=== PATIENT | female | born 1970 | race Caucasian/White ===

== ENCOUNTER 2016-10-31 11:32 | Emergency (ER) | payer MEDICAID ==
[2016-10-31] MEDS ORDERED: LORazepam 0.5 MG TABLET PO STA (13:33)
[2016-10-31] MEDS ORDERED: LORazepam 0.5 MG TABLET ONE (13:35)
== END 2016-10-31 16:19 | disposition home or self-care (01) ==
DX: F41.9 Anxiety disorder, unspecified (principal); F31.9 Bipolar disorder, unspecified; F17.200 Nicotine dependence, unspecified, uncomplicated
CPT/HCPCS: 80306; 81001; 81025; 87086; 99283; 99284; A9270

== ENCOUNTER 2017-05-07 15:08 | Emergency (ER) | payer MEDICAID ==
[2017-05-07 15:28] VITALS: BP 131/85
--- NOTE | 2017-05-07 16:24 | ED Physician Documentation ---
PD HPI MHE - Stated complaint Stated Complaint: MHE - Chief complaint Chief Complaint: MHE - History obtained from History obtained from: Patient, Friend - History of Present Illness Primary symptom: Other (46-year-old woman with history of bipolar disorder has been feeling increasingly anxious and not sleeping over the last few days compounded by the fact that she ran out of her lorazepam about 2 days ago and there is some sort of mixup between her prescriber and the pharmacy causing her to be unable to obtain refill. There is no associated suicidal or homicidal ideation. 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 - Present Medications Home Medications: Ambulatory Orders Medication Instructions Recorded Confirmed Desvenlafaxine Succinate [Pristiq] 50 mg DAILY 10/31/16 10/31/16 Doxycycline Hyclate 100 mg BID 10/31/16 10/31/16 Lorazepam 1 tab BID 10/31/16 10/31/16 busPIRone [Buspar] 15 mg BID 10/31/16 10/31/16 Lorazepam [Ativan] 1 mg PO TID PRN #15 tablet 05/07/17 - Allergies Allergies/Adverse Reactions: Allergies Allergy/AdvReac Type Severity Reaction Status Date / Time No Known Drug Allergies Allergy Verified 10/31/16 11:41 - Social History Does the pt smoke?: Yes Smoking Status: Current every day smoker Does the pt drink ETOH?: No PD ED PE NORMAL - Vitals Vital signs reviewed: Yes - General General: Alert and oriented X 3, No acute distress, Other (Anxious) - HEENT HEENT: PERRL, EOMI - Neuro Neuro: Alert and oriented X 3, advertising copywriter 2-12 intact, No motor deficit, No sensory deficit, Normal speech Results - Vitals Vitals: Vital Signs - 24 hr 05/07/17 15:23 Temperature 36.5 C Heart Rate 80 Blood Pressure 131/85 H O2 Saturation 97 Oxygen O2 Source Room air Departure - Departure Disposition: 01 Home, Self Care Clinical Impression: Anxiety Condition: Good Record reviewed to determine appropriate education?: Yes Instructions: ED Panic Attack Prescriptions: Lorazepam [Ativan] 1 mg PO TID PRN #15 tablet PRN Reason: Anxiety Comments: Follow-up with your prescriber at [facility] as soon as possible for further refills and medication adjustment. Your blood pressure was elevated today on check into the emergency department. This does not mean that you have hypertension, it is a common phenomenon to come to the emergency department and have elevated blood pressure. I recommend that she see your primary care physician within the week to have it rechecked when you are feeling better.
[2017-05-07] MEDS ORDERED: LORazepam 0.5 MG TABLET PO STA (16:30)
[2017-05-07] MEDS ORDERED: LORazepam 0.5 MG TABLET ONE (16:38)
[2017-05-07] MEDS ORDERED: ONDANSETRON ODT 4 MG TABLET TL STA (16:41)
[2017-05-07] MEDS ORDERED: ONDANSETRON ODT 4 MG TABLET ONE (16:47)
== END 2017-05-07 17:32 | disposition home or self-care (01) ==
LOC: ED 15:08
DX: F41.9 Anxiety disorder, unspecified (principal); T42.4X6A Underdosing of benzodiazepines, initial encounter; Z91.138 Patient's unintentional underdosing of medication regimen for other reason; F31.9 Bipolar disorder, unspecified; R03.0 Elevated blood-pressure reading, without diagnosis of hypertension; F17.200 Nicotine dependence, unspecified, uncomplicated
CPT/HCPCS: 93005; 99283; A9270; Q0162

== ENCOUNTER 2017-05-21 15:35 | Emergency (ER) | payer MEDICAID ==
--- NOTE | 2017-05-21 15:50 | ED Physician Documentation ---
History of Present Illness - Stated complaint Stated Complaint: anxiety reaction - Chief complaint Chief Complaint: General - History obtained from History obtained from: Patient, Friend - History of Present Illness Timing: Other (46-year-old woman with history of bipolar disorder has been noncompliant with her Geodon and took it again today and is making her feel even worse. She has not slept in about a week, she is pacing and crying at night and feeling chest pains and shortness of breath. There is no associated pedal edema or possibility of . She has no physical health issues.) Review of Systems Ten Systems: 10 systems reviewed and negative Constitutional: reports: Fatigue. denies: Fever, Chills Cardiac: reports: Chest pain / pressure. denies: Palpitations, Pedal edema, Calf pain Respiratory: reports: Dyspnea. 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 - Present Medications Home Medications: Ambulatory Orders Medication Instructions Recorded Confirmed Desvenlafaxine Succinate [Pristiq] 50 mg DAILY 10/31/16 10/31/16 Doxycycline Hyclate 100 mg BID 10/31/16 10/31/16 Lorazepam 1 tab BID 10/31/16 10/31/16 busPIRone [Buspar] 15 mg BID 10/31/16 10/31/16 Lorazepam [Ativan] 1 mg PO TID PRN #15 tablet 05/07/17 QUEtiapine [SEROquel] 100 mg PO BID #30 tablet 05/21/17 - Allergies Allergies/Adverse Reactions: Allergies Allergy/AdvReac Type Severity Reaction Status Date / Time No Known Drug Allergies Allergy Verified 10/31/16 11:41 - Social History Does the pt smoke?: Yes Smoking Status: Current every day smoker Does the pt drink ETOH?: No - Family History Family history: reports: Non contributory PD ED PE NORMAL - Vitals Vital signs reviewed: Yes - General General: Alert and oriented X 3, Other (Tearful with pressured speech, anxious) - HEENT HEENT: PERRL, EOMI - Neck Neck: Supple, no meningeal sign, No bony TTP - Cardiac Cardiac: Other (Tachycardic but regular, no murmur) - Respiratory Respiratory: No respiratory distress, Clear bilaterally - Abdomen Abdomen: Normal bowel sounds, Soft, Non tender - Back Back: No CVA TTP, No spinal TTP - Derm Derm: Normal color, Warm and dry - Extremities Extremities: No edema, No calf tenderness / cord - Neuro Neuro: Alert and oriented X 3, Normal speech - Psych Psych: Other (Pressured speech and manic, redirectable though, denies suicidal or homicidal ideation, denies visual or auditory hallucinations.) Results - Vitals Vitals: Vital Signs - 24 hr 05/21/17 15:40 Temperature 36.8 C Heart Rate 133 H Respiratory 17 Rate Blood Pressure 137/89 H O2 Saturation 98 Oxygen O2 Source Room air - EKG (time done) 1548 Rate: Rate (enter#) (105) Rhythm: Sinus tachycardia [place]: Normal Intervals: Normal [place] QRS: Normal Ischemia: Normal ST segments Computer interpretation: Agree with computer - Labs Labs: Laboratory Tests 05/21/17 05/21/17 05/21/17 15:52 15:52 15:52 WBC 9.0 RBC 4.71 Hgb 14.8 Hct 43.3 MCV 92.0 MCH 31.4 H MCHC 34.1 RDW 13.6 Plt Count 216 MPV 8.7 Neut # 5.8 Lymph # 2.3 [place] # 0.7 Eos # 0.1 Baso # 0.1 Absolute Nucleated RBC 0.00 Nucleated RBC % 0.0 D-Dimer 294.2 H Sodium 135 Potassium 3.4 L Chloride 104 Carbon Dioxide 19 L Anion Gap 12.0 BUN 10 Creatinine 0.8 Estimated GFR (MDRD) 78 L Glucose 121 H Calcium 9.1 Total Bilirubin 0.6 AST 18 ALT 16 Alkaline Phosphatase 58 Troponin I Total Protein 7.2 Albumin 4.5 Globulin 2.7 Albumin/Globulin Ratio 1.7 Lipase 18 L TSH Urine Color Urine Clarity Urine pH Ur Specific [place] Urine Protein Urine Glucose (UA) Urine Ketones Urine Occult Blood Urine Nitrite Urine Bilirubin Urine Urobilinogen Ur Leukocyte Esterase Urine RBC Urine WBC Ur Squamous Epith Cells Urine Bacteria Ur Microscopic Review Urine Culture Comments Urine HCG, Qual Urine Opiates Screen Ur Oxycodone Screen Urine Methadone Screen Ur Propoxyphene Screen Ur Barbiturates Screen Ur Tricyclics Screen Ur Phencyclidine Scrn Ur Amphetamine Screen U Methamphetamines Scrn U Benzodiazepines Scrn Urine Cocaine Screen U Cannabinoids Screen Ethyl Alcohol < 5.0 05/21/17 05/21/17 05/21/17 15:52 15:52 16:34 WBC RBC Hgb Hct MCV MCH MCHC RDW Plt Count MPV Neut # Lymph # [place] # Eos # Baso # Absolute Nucleated RBC Nucleated RBC % D-Dimer Sodium Potassium Chloride Carbon Dioxide Anion Gap BUN Creatinine Estimated GFR (MDRD) Glucose Calcium Total Bilirubin AST ALT Alkaline Phosphatase Troponin I < 0.04 Total Protein Albumin Globulin Albumin/Globulin Ratio Lipase TSH 2.88 Urine Color Urine Clarity Urine pH Ur Specific [place] Urine Protein Urine Glucose (UA) Urine Ketones Urine Occult Blood Urine Nitrite Urine Bilirubin Urine Urobilinogen Ur Leukocyte Esterase Urine RBC Urine WBC Ur Squamous Epith Cells Urine Bacteria Ur Microscopic Review Urine Culture Comments Urine HCG, Qual Urine Opiates Screen NEGATIVE Ur Oxycodone Screen NEGATIVE Urine Methadone Screen NEGATIVE Ur Propoxyphene Screen NEGATIVE Ur Barbiturates Screen NEGATIVE Ur Tricyclics Screen NEGATIVE Ur Phencyclidine Scrn NEGATIVE Ur Amphetamine Screen NEGATIVE U Methamphetamines Scrn NEGATIVE U Benzodiazepines Scrn POSITIVE H Urine Cocaine Screen NEGATIVE U Cannabinoids Screen POSITIVE H Ethyl Alcohol 05/21/17 16:34 WBC RBC Hgb Hct MCV MCH MCHC RDW Plt Count MPV Neut # Lymph # [place] # Eos # Baso # Absolute Nucleated RBC Nucleated RBC % D-Dimer Sodium Potassium Chloride Carbon Dioxide Anion Gap BUN Creatinine Estimated GFR (MDRD) Glucose Calcium Total Bilirubin AST ALT Alkaline Phosphatase Troponin I Total Protein Albumin Globulin Albumin/Globulin Ratio Lipase TSH Urine Color YELLOW Urine Clarity CLEAR Urine pH 6.0 Ur Specific [place] 1.010 Urine Protein NEGATIVE Urine Glucose (UA) NEGATIVE Urine Ketones NEGATIVE Urine Occult Blood SMALL H Urine Nitrite NEGATIVE Urine Bilirubin NEGATIVE Urine Urobilinogen 0.2 (NORMAL) Ur Leukocyte Esterase NEGATIVE Urine RBC 6-10 H Urine WBC 0-3 Ur Squamous Epith Cells MOD Squamous H Urine Bacteria Few Ur Microscopic Review INDICATED Urine Culture Comments NOT INDICATED Urine HCG, Qual NEGATIVE Urine Opiates Screen Ur Oxycodone Screen Urine Methadone Screen Ur Propoxyphene Screen Ur Barbiturates Screen Ur Tricyclics Screen Ur Phencyclidine Scrn Ur Amphetamine Screen U Methamphetamines Scrn U Benzodiazepines Scrn Urine Cocaine Screen U Cannabinoids Screen Ethyl Alcohol PD MEDICAL DECISION MAKING - ED course ED course: 46-year-old woman with anxiety and andre. She had chest pain so EKG/troponin/d- dimer are done. D-dimer flags as positive but most authorities would consider this a negative value. Dr Phan from [facility] evaluated her and felt she is safe for discharge, concern though that she may be having paradoxical agitation from the geodon. Recommends discontinuing this and replacing it with: 100mg seroquel, 1/ 2 tab AM and 100mg PO qhs. Departure - Departure Disposition: Home, Self Care Clinical Impression: Bipolar 1 disorder Condition: Good Record reviewed to determine appropriate education?: Yes Instructions: ED Manic Depression Prescriptions: QUEtiapine [SEROquel] 100 mg PO BID #30 tablet Comments: The psychiatrist here recommends discontinuing her Geodon, and replacing it with the Seroquel; we gave you a nighttime dose here. You are to take half a tablet in the morning and 1 tablet in the evening. Follow-up with your personal psychiatrist as soon as possible. Return if worse. Your blood pressure was elevated today on check into the emergency department. This does not mean that you have hypertension, it is a common phenomenon to come to the emergency department and have elevated blood pressure. I recommend that you see your primary care physician within the week to have it rechecked when you are feeling better.
[2017-05-21 16:02] LABS: BASOPHILS # (AUTO) 0.1 10^3/uL (0.0-0.1); BASOPHILS % (AUTO) 0.7 %; EOSINOPHILS # (AUTO) 0.1 10^3/uL (0.0-0.7); EOSINOPHILS % (AUTO) 0.9 %; HCT - HEMATOCRIT 43.3 % (37.0-47.0); HGB - HEMOGLOBIN 14.8 g/dL (12.0-16.0); LYMPHOCYTES # (AUTO) 2.3 10^3/uL (1.5-3.5); LYMPHOCYTES % (AUTO) 25.6 %; MEAN CORPUSCULAR HEMOGLOBIN 31.4 pg (27.0-31.0); MEAN CORPUSCULAR HGB CONC 34.1 g/dL (32.0-36.0); MEAN PLATELET VOLUME 8.7 fL (7.9-10.8); MONOCYTES # (AUTO) 0.7 10^3/uL (0.0-1.0); MONOCYTES % (AUTO) 7.8 %; NEUTROPHILS # (AUTO) 5.8 10^3/uL (1.5-6.6); RED BLOOD COUNT 4.71 10^6/uL (4.20-5.40); RED CELL DISTRIBUTION WIDTH 13.6 % (12.0-15.0)
[2017-05-21 16:15] LABS: ALBUMIN/GLOBULIN RATIO 1.7 (1.0-2.2); BILIRUBIN,TOTAL 0.6 mg/dL (0.2-1.0); BUN - BLOOD UREA NITROGEN 10 mg/dL (6-20); CALCIUM 9.1 mg/dL (8.5-10.3); CARBON DIOXIDE - CO2 19 mmol/L (21-32); CHLORIDE 104 mmol/L (101-111); CREATININE 0.8 mg/dL (0.4-1.0); GFR - MDRD 78 (>89); GLUCOSE 121 mg/dL (70-100); LIPASE 18 U/L (22-51); POTASSIUM 3.4 mmol/L (3.5-5.0); SODIUM 135 mmol/L (135-145); TOTAL PROTEIN 7.2 g/dL (6.7-8.2)
[2017-05-21 16:38] LABS: BILIRUBIN,URINE NEGATIVE (NEGATIVE)
[2017-05-21 16:42] LABS: HCG UR QUAL NEGATIVE; UA w/ MICROSCOPIC CHARGE YES
[2017-05-21 16:50] LABS: UR CULTURE IF IND NOT INDICATED; WBC,URINE 0-3 /HPF (0-5)
[2017-05-21] MEDS ORDERED: QUEtiapine 25 MG TABLET PO STA (18:12)
[2017-05-21] MEDS ORDERED: QUEtiapine 100 MG TABLET PO STA (18:16)
[2017-05-21 18:17] VITALS: BP 110/75
== END 2017-05-21 18:29 | disposition home or self-care (01) ==
LOC: ED 15:35
DX: F31.9 Bipolar disorder, unspecified (principal); F41.9 Anxiety disorder, unspecified; T43.596A Underdosing of other antipsychotics and neuroleptics, initial encounter; R07.9 Chest pain, unspecified; R03.0 Elevated blood-pressure reading, without diagnosis of hypertension; F17.200 Nicotine dependence, unspecified, uncomplicated
CPT/HCPCS: 36415; 80053; 80306; 80320; 81001; 81025; 83690; 84443; 84484; 85025; 85379; 93005; 99283; 99284; A9270; 81003; 87086

== ENCOUNTER 2017-06-07 21:25 | Outpatient (CLI) | payer MEDICAID | END 2017-06-07 21:26 | disposition critical access hospital (66) | LOC: EMS 21:25 | PROVIDERS: ATTEND Surgery | DX: R07.9 Chest pain, unspecified (principal) | CPT/HCPCS: A0425; A0427 ==

== ENCOUNTER 2017-06-07 21:44 | Emergency (ER) | payer MEDICAID ==
--- NOTE | 2017-06-07 22:04 | ED Physician Documentation ---
PD HPI CHEST PAIN - Stated complaint Stated Complaint: CP - Chief complaint Chief Complaint: Cardiac - History obtained from History obtained from: Patient - History of Present Illness Timing - onset: Enter time (19:00), Today Timing - onset during: Rest (driving) Timing - details: Abrupt onset Pain level now: 4 Quality: Pain Location: Substernal Radiation: Other (no radiation) Improved by: Nothing Worsened by: Other (no exacerbating factors) Associated symptoms: Nausea. No: Shortness of air, Vomiting, General Weakness Similar symptoms before: Has not had sx before Recently seen: Emergency Dept (T+R yesterday for same, unremarkable testing at that time) Review of Systems Constitutional: denies: Fever Cardiac: reports: Chest pain / pressure. denies: Palpitations, Pedal edema Respiratory: reports: Reviewed and negative GI: reports: Nausea. 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 - Present Medications Home Medications: Ambulatory Orders Medication Instructions Recorded Confirmed Doxycycline Hyclate 100 mg BID 10/31/16 06/07/17 hydrOXYzine PAMOATE [Vistaril] 1 tab PO DAILY 06/07/17 06/07/17 - Allergies Allergies/Adverse Reactions: Allergies Allergy/AdvReac Type Severity Reaction Status Date / Time No Known Drug Allergies Allergy Verified 06/07/17 21:49 - Social History Does the pt smoke?: Yes Smoking Status: Current every day smoker Does the pt drink ETOH?: No Does the pt have substance abuse?: No - Immunizations Immunizations are current?: No - POLST Patient has POLST: No PD ED PE NORMAL - Vitals Vital signs reviewed: Yes - General General: Alert and oriented X 3, No acute distress, Well developed/nourished - Neck Neck: Supple, no meningeal sign - Cardiac Cardiac: RRR, No murmur - Respiratory Respiratory: No respiratory distress, Clear bilaterally - Abdomen Abdomen: Soft, Non tender, Non distended - Derm Derm: Normal color, Warm and dry - Extremities Extremities: No edema Results - Vitals Vitals: Oxygen O2 Source Room air - EKG (time done) No standard instances Rate: Rate (enter#) (65) Rhythm: NSR [place]: Normal Intervals: Normal [place] QRS: Normal Ischemia: Normal ST segments - Labs Labs: Laboratory Tests 06/07/17 22:05 Troponin I < 0.04 - Rads (name of study) chest xray Radiology: Prelim report reviewed, See rad report PD MEDICAL DECISION MAKING - ED course Complexity details: reviewed old records, reviewed results, re-evaluated patient , considered differential, d/w patient Departure - Departure Disposition: 01 Home, Self Care Clinical Impression: Anxiety, Bipolar 1 disorder Chest pain Qualifiers: Chest pain type: unspecified Qualified Code(s): R07.9 - Chest pain, unspecified Condition: Good Instructions: ED Chest Pain Atypical Unkn Cause Comments: Follow up with your primary care provider, next available appointment Discharge Date/Time: 06/08/17 00:00
--- NOTE | 2017-06-07 22:41 | XRAY Preliminary Report ---
Exam: XR CHEST 2 VIEW PA/LAT IMPRESSION: 1. No acute abnormality seen in the chest. [facility] SITE ID: [id number]
--- NOTE | 2017-06-07 22:44 | XRAY Report ---
EXAM: CHEST RADIOGRAPHY EXAM DATE: 06/07/2017 10:29 PM. CLINICAL HISTORY: Chest pain. COMPARISON: 05/19/2011. TECHNIQUE: 2 views. FINDINGS: Lungs/Pleura: No alveolar consolidation or pleural effusion. No pneumothorax. Mediastinum: Heart and mediastinal contours are unremarkable. Other: None. IMPRESSION: 1. No acute abnormality seen in the chest. [facility] Referring Provider Line: [phone] SITE ID: [id number]
[2017-06-07 23:15] VITALS: BP 112/67
[2017-06-07] MEDS ORDERED: LORazepam 2 MG/ML SYRINGE IVP STA (23:38)
[2017-06-07] MEDS ORDERED: LORazepam 2 MG/ML SYRINGE ONE (23:48)
== END 2017-06-08 | disposition home or self-care (01) ==
LOC: EDUNIT# → ED 21:44
DX: R07.9 Chest pain, unspecified (principal); F31.9 Bipolar disorder, unspecified; F41.9 Anxiety disorder, unspecified; F17.200 Nicotine dependence, unspecified, uncomplicated
CPT/HCPCS: 36415; 71020; 84484; 93005; 96374; 99283; 99284; J2060

== ENCOUNTER 2017-06-28 01:54 | Emergency (ER) | payer MEDICAID ==
--- NOTE | 2017-06-28 02:42 | ED Physician Documentation ---
PD HPI CHEST PAIN - Stated complaint Stated Complaint: CHEST PX - Chief complaint Chief Complaint: Cardiac - History obtained from History obtained from: Patient - History of Present Illness Timing - onset: Today, Chronic (this has been a recurrent problem, but todays episode started this morning) Timing - duration: Hours Timing - details: Gradual onset, Waxing and waning Pain level now: 3 Quality: Aching, Other (burning, prickly) Location: Substernal Radiation: Jaw, Left upper extremity, Right upper extremity Improved by: Nothing Worsened by: Other (no exacerbating factors) Associated symptoms: No: Shortness of air, Diaphoresis, Nausea, Vomiting, Feeling faint / dizzy, General Weakness, Palpitations, Cough Similar symptoms before: No diagnosis Recently seen: Clinic, Emergency Dept - Additional information Additional information: patient complains of chest pain that radiates to her neck and both upper extremities. she has been evaluated at this emergency department recently for same complaint with unremarkable testing. MIGUELANGEL reflects several emergency department visits for similar complaints to a few different emergency departments. Patient says no diagnosis requires of her symptoms has been determined. Patient says she saw her primary care physician earlier today, and was frustrated by, again, a lack of a specific diagnosis. Review of Systems Constitutional: reports: Reviewed and negative Cardiac: reports: Chest pain / pressure, Palpitations. 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 - Present Medications Home Medications: Ambulatory Orders Medication Instructions Recorded Confirmed Doxycycline Hyclate 100 mg BID 10/31/16 06/07/17 hydrOXYzine PAMOATE [Vistaril] 1 tab PO DAILY 06/07/17 06/07/17 LORazepam [Lorazepam] 0.5 mg PO BID PRN #14 tablet 06/28/17 - Allergies Allergies/Adverse Reactions: Allergies Allergy/AdvReac Type Severity Reaction Status Date / Time No Known Drug Allergies Allergy Verified 06/28/17 02:06 - Social History Does the pt smoke?: Yes Smoking Status: Current every day smoker Does the pt drink ETOH?: No Does the pt have substance abuse?: No - Immunizations Immunizations are current?: No - POLST Patient has POLST: No PD ED PE NORMAL - Vitals Vital signs reviewed: Yes - General General: Alert and oriented X 3, Well developed/nourished, Other (appears anxious at times) - Neck Neck: Supple, no meningeal sign - Cardiac Cardiac: RRR, No murmur, No gallop, No rub - Respiratory Respiratory: No respiratory distress, Clear bilaterally - Abdomen Abdomen: Soft, Non tender - Derm Derm: Normal color, Warm and dry, No rash - Extremities Extremities: No edema - Neuro Neuro: Alert and oriented X 3 Results - Vitals Vitals: Vital Signs - 24 hr 06/28/17 06/28/17 06/28/17 02:01 02:30 03:54 Temperature 36.4 C L Heart Rate 74 76 64 Respiratory 18 16 17 Rate Blood Pressure 111/76 105/71 93/57 L O2 Saturation 99 95 96 06/28/17 06/28/17 04:42 05:10 Temperature 36.4 C L Heart Rate 79 68 Respiratory 17 17 Rate Blood Pressure 102/91 H O2 Saturation 99 98 Oxygen O2 Source Room air - EKG (time done) No standard instances Rate: Rate (enter#) (72) Rhythm: NSR [place]: Normal Intervals: Normal IN QRS: Normal Ischemia: Normal ST segments - Labs Labs: Laboratory Tests 06/28/17 06/28/17 06/28/17 02:05 02:05 02:05 WBC 14.6 H RBC 4.60 Hgb 14.4 Hct 42.7 MCV 92.8 MCH 31.2 H MCHC 33.7 RDW 12.9 Plt Count 296 MPV 8.7 Neut # 9.3 H Lymph # 3.9 H [place] # 1.0 Eos # 0.3 Baso # 0.1 Absolute Nucleated RBC 0.00 Nucleated RBC % 0.0 Sodium 136 Potassium 3.3 L Chloride 101 Carbon Dioxide 26 Anion Gap 9.0 BUN 18 Creatinine 0.9 Estimated GFR (MDRD) 68 L Glucose 102 H Calcium 9.4 Troponin I < 0.04 Urine Color Urine Clarity Urine pH Ur Specific [place] Urine Protein Urine Glucose (UA) Urine Ketones Urine Occult Blood Urine Nitrite Urine Bilirubin Urine Urobilinogen Ur Leukocyte Esterase Urine RBC Urine WBC Ur Squamous Epith Cells Urine Bacteria Ur Microscopic Review Urine Culture Comments 06/28/17 02:05 WBC RBC Hgb Hct MCV MCH MCHC RDW Plt Count MPV Neut # Lymph # [place] # Eos # Baso # Absolute Nucleated RBC Nucleated RBC % Sodium Potassium Chloride Carbon Dioxide Anion Gap BUN Creatinine Estimated GFR (MDRD) Glucose Calcium Troponin I Urine Color LT. YELLOW Urine Clarity CLEAR Urine pH 6.5 Ur Specific [place] <=1.005 Urine Protein NEGATIVE Urine Glucose (UA) NEGATIVE Urine Ketones NEGATIVE Urine Occult Blood LARGE H Urine Nitrite NEGATIVE Urine Bilirubin NEGATIVE Urine Urobilinogen 0.2 (NORMAL) Ur Leukocyte Esterase NEGATIVE Urine RBC 0-5 Urine WBC 0-3 Ur Squamous Epith Cells FEW Squamous Urine Bacteria None Seen Ur Microscopic Review INDICATED Urine Culture Comments NOT INDICATED PD MEDICAL DECISION MAKING - ED course Complexity details: reviewed old records, reviewed results, re-evaluated patient , considered differential, d/w patient ED course: as with my previous encounter with this patient for these symptoms, patient was difficult to reassure despite unremarkable testing (mild leukocytosis and hypokalemia noted and discussed). I was able to eventually reassure patient, but she again expressed frustration with the lack of diagnosis. Departure - Departure Disposition: 01 Home, Self Care Clinical Impression: Chest pain Condition: Good Instructions: ED Chest Pain Atypical Unkn Cause Prescriptions: LORazepam [Lorazepam] 0.5 mg PO BID PRN #14 tablet PRN Reason: Anxiety Discharge Date/Time: 06/28/17 05:10
[2017-06-28 03:08] LABS: BASOPHILS # (AUTO) 0.1 10^3/uL (0.0-0.1); BASOPHILS % (AUTO) 0.5 %; EOSINOPHILS # (AUTO) 0.3 10^3/uL (0.0-0.7); EOSINOPHILS % (AUTO) 2.1 %; HCT - HEMATOCRIT 42.7 % (37.0-47.0); HGB - HEMOGLOBIN 14.4 g/dL (12.0-16.0); LYMPHOCYTES # (AUTO) 3.9 10^3/uL (1.5-3.5); MEAN CORPUSCULAR HEMOGLOBIN 31.2 pg (27.0-31.0); MEAN CORPUSCULAR HGB CONC 33.7 g/dL (32.0-36.0); MEAN CORPUSCULAR VOLUME 92.8 fL (81.0-99.0); MEAN PLATELET VOLUME 8.7 fL (7.9-10.8); MONOCYTES % (AUTO) 6.8 %; NEUTROPHILS # (AUTO) 9.3 10^3/uL (1.5-6.6); NEUTROPHILS % (AUTO) 63.6 %; RED CELL DISTRIBUTION WIDTH 12.9 % (12.0-15.0); UNCORRECTED WHITE BLOOD COUNT 14.6 x10^3/uL; WHITE BLOOD COUNT 14.6 x10^3/uL (4.8-10.8)
[2017-06-28 03:11] LABS: CALCIUM 9.4 mg/dL (8.5-10.3); CREATININE 0.9 mg/dL (0.4-1.0); POTASSIUM 3.3 mmol/L (3.5-5.0)
[2017-06-28 04:30] LABS: BILIRUBIN,URINE NEGATIVE (NEGATIVE); PH,URINE 6.5 PH (5.0-7.5)
[2017-06-28 04:41] LABS: UA w/ MICROSCOPIC CHARGE YES; UR CULTURE IF IND NOT INDICATED; WBC,URINE 0-3 /HPF (0-5)
[2017-06-28 04:43] VITALS: BP 102/91
[2017-06-28] MEDS ORDERED: LORazepam 0.5 MG TABLET PO STA (04:57)
[2017-06-28] MEDS ORDERED: POTASSIUM BICARB 25 MEQ TABLET PO STA (04:57)
[2017-06-28] MEDS ORDERED: LORazepam 0.5 MG TABLET ONE (05:10)
[2017-06-28] MEDS ORDERED: POTASSIUM BICARB 25 MEQ TABLET PO ONE (05:10)
== END 2017-06-28 05:10 | disposition home or self-care (01) ==
LOC: ED 01:54
DX: R07.9 Chest pain, unspecified (principal); F17.200 Nicotine dependence, unspecified, uncomplicated
CPT/HCPCS: 36415; 80048; 81001; 84484; 85025; 93005; 99284; A9270; 81003; 87086

== ENCOUNTER 2017-07-01 05:53 | Emergency (ER) | payer MEDICAID ==
[2017-07-01] MEDS ORDERED: LORazepam 0.5 MG TABLET PO STA ×2 (06:09→06:38)
[2017-07-01] MEDS ORDERED: LORazepam 0.5 MG TABLET ONE ×2 (06:19→06:53)
--- NOTE | 2017-07-01 06:38 | ED Physician Documentation ---
PD HPI MHE - Stated complaint Stated Complaint: ANXIETY - Chief complaint Chief Complaint: MHE - History obtained from History obtained from: Patient, Friend - History of Present Illness Primary symptom: Anxiety, Off meds Timing - onset: Today, Chronic Contributing factors: Off meds Similar symptoms before: Work up / diagnostics, Treatment Recently seen: Emergency Dept - Additional information Additional information: Patient is a 46 year old female with a history of anxiety and bipolar disorder. patient came to the emergency department for a panic attack. Patient states that she was here a few days ago for a similar feeling. Diagnostics at that time were negative, and patient was given a prescription for ativan. patient states that her insurance would not fill the prescription since she has had the same one written. patient states that she drank yesterday because she did not know what to do. Since she drank she did not take her bipolar medication. patient reports that she has a follow up appointment tomorrow at sunrise but needs to get through today. Review of Systems Constitutional: denies: Fever, Chills Eyes: denies: Decreased vision Ears: reports: Reviewed and negative Nose: reports: Reviewed and negative Throat: reports: Reviewed and negative Cardiac: denies: Chest pain / pressure Respiratory: denies: Cough, Wheezing GI: denies: Nausea, Vomiting : reports: Reviewed and negative Skin: denies: Rash, Lesions Musculoskeletal: denies: Extremity pain, Extremity swelling Neurologic: denies: Numbness Psychiatric: reports: Anxiety. denies: Depressed, Suicidal, Homicidal Immunocompromised: denies: Immunocompromised PD PAST MEDICAL HISTORY - Past Medical History Past Medical History: Yes Cardiovascular: None Respiratory: None Neuro: None Endocrine/Autoimmune: None GI: None EPIDEMIOLOGIST: None : None HEENT: None Psych: Depression, Anxiety, Bipolar disorder Musculoskeletal: None Derm: None - Past Surgical History Past Surgical History: Yes /EPIDEMIOLOGIST: Tubal ligation - Present Medications Home Medications: Ambulatory Orders Medication Instructions Recorded Confirmed Doxycycline Hyclate 100 mg BID 10/31/16 07/01/17 hydrOXYzine PAMOATE [Vistaril] 1 tab PO DAILY 06/07/17 07/01/17 LORazepam [Lorazepam] 0.5 mg PO BID PRN #14 tablet 06/28/17 07/01/17 - Allergies Allergies/Adverse Reactions: Allergies Allergy/AdvReac Type Severity Reaction Status Date / Time No Known Drug Allergies Allergy Verified 07/01/17 06:03 - Social History Does the pt smoke?: Yes Smoking Status: Current every day smoker Does the pt drink ETOH?: No Does the pt have substance abuse?: No - Immunizations Immunizations are current?: No - POLST Patient has POLST: No PD ED PE NORMAL - Vitals Vital signs reviewed: Yes - General General: Alert and oriented X 3, Well developed/nourished - HEENT HEENT: Atraumatic, PERRL - Neck Neck: Supple, no meningeal sign, No JVD - Cardiac Cardiac: RRR, No murmur - Respiratory Respiratory: No respiratory distress, Clear bilaterally - Abdomen Abdomen: Soft, Non tender, Non distended - Derm Derm: Normal color, Warm and dry, No rash - Neuro Neuro: Alert and oriented X 3, No motor deficit, No sensory deficit, Normal speech Eye Opening: Spontaneous Motor: Obeys Commands Verbal: Oriented GCS Score: 15 PD ED PE EXPANDED - General General: Alert, Anxious - Psych Psych: Anxious. No: Suicidal, Homicidal, Auditory hallucinations, Visual hallucinations, Tactile hallucinations Results - Vitals Vitals: Vital Signs - 24 hr 07/01/17 07/01/17 05:56 06:50 Temperature 36.6 C Heart Rate 88 75 Respiratory 24 22 Rate Blood Pressure 109/77 117/68 O2 Saturation 100 100 Oxygen O2 Source Room air PD MEDICAL DECISION MAKING - ED course Complexity details: reviewed old records, reviewed results, re-evaluated patient , considered differential, d/w patient ED course: Patient was seen and examined at bedside. Patient was a bit anxious, and was treated with ativan 1mg. Patient stated that she did not necessarily want to wait to talk with someone including social work. Patient was not suicidal or homicidal. Patient had close support and follow up tomorrow. Patient required no further work up at this time and was stable for discharge with outpatient follow up. Departure - Departure Disposition: 01 Home, Self Care Clinical Impression: Anxiety Condition: Stable Instructions: ED Stress React, ED Panic Attack Follow-Up: Naomi Crockett MD [Primary Care Provider] - Tomorrow Comments: It is important that you go to your appointment tomorrow at sunrise. For today , in order to cope you can try the ativan but you should also try breathing exercises and regular exercise. You should also take your prescribed lithium dose. If it becomes to much to handle you can return to the emergency department at any time for further evaluation and care. Discharge Date/Time: 07/01/17 06:45
[2017-07-01 06:51] VITALS: BP 117/68
== END 2017-07-01 06:45 | disposition home or self-care (01) ==
LOC: ED 05:53
DX: F41.9 Anxiety disorder, unspecified (principal); F31.9 Bipolar disorder, unspecified; F17.200 Nicotine dependence, unspecified, uncomplicated
CPT/HCPCS: 99283; A9270

== ENCOUNTER 2017-11-10 11:41 | Outpatient (CLI) | payer MEDICAID ==
--- NOTE | 2017-11-12 17:09 | Mammography Report ---
DIGITAL SCREENING MAMMOGRAM: 11/10/2017 CLINICAL INDICATION: A 46-year-old for screening. COMPARISON: Films from [facility], [place] dated 01/11/2016, 01/07/2014, 04/17/2012, 06/28/2009. TECHNIQUE: Routine CC and MLO projections were obtained of the breasts. FINDINGS: The breasts demonstrate heterogeneously dense fibroglandular parenchyma bilaterally. Punctate, typically benign calcifications are present. No suspicious masses, clustered microcalcifications, or regions of architectural distortion are identified. IMPRESSION: BENIGN FINDINGS. RECOMMENDATION: Routine annual screening unless otherwise clinically indicated. BIRADS CATEGORY 2 - BENIGN FINDINGS. STANDARD QUALIFYING STATEMENTS: 1. This examination was reviewed with the aid of Computer-Aided Detection (CAD). 2. A negative or benign imaging report should not delay biopsy if clinically suspicious findings are present. Consider surgical consultation if warranted. More than 5% of cancers are not identified by imaging. 3. Dense breasts may obscure an underlying neoplasm. TD: 11/12/2017 17:08
== END 2017-11-10 11:42 | disposition home or self-care (01) ==
LOC: DI.N 11:41
PROVIDERS: ATTEND Nurse Practitioner
DX: Z12.31 Encounter for screening mammogram for malignant neoplasm of breast (principal)
CPT/HCPCS: 77067

== ENCOUNTER 2018-01-13 10:01 | Outpatient (CLI) | payer MEDICAID ==
[2018-01-13 12:37] LABS: BASOPHILS # (AUTO) 0.1 10^3/uL (0.0-0.1); BASOPHILS % (AUTO) 0.8 %; EOSINOPHILS # (AUTO) 0.2 10^3/uL (0.0-0.7); HGB - HEMOGLOBIN 14.3 g/dL (12.0-16.0); LYMPHOCYTES # (AUTO) 1.8 10^3/uL (1.5-3.5); LYMPHOCYTES % (AUTO) 23.2 %; MEAN CORPUSCULAR HEMOGLOBIN 32.5 pg (27.0-31.0); MEAN CORPUSCULAR HGB CONC 33.4 g/dL (32.0-36.0); MEAN CORPUSCULAR VOLUME 97.3 fL (81.0-99.0); MEAN PLATELET VOLUME 9.1 fL (7.9-10.8); MONOCYTES # (AUTO) 0.7 10^3/uL (0.0-1.0); PLT - PLATELET COUNT 245 10^3/uL (130-450); RED CELL DISTRIBUTION WIDTH 12.6 % (12.0-15.0); WHITE BLOOD COUNT 7.7 x10^3/uL (4.8-10.8)
[2018-01-13 12:46] LABS: THYROID STIMULATING HORMONE 1.36 uIU/mL (0.34-5.60)
[2018-01-13 12:55] LABS: FOLATE 13.56 ng/mL ([, 5.90 - >24.8])
[2018-01-13 12:58] LABS: ALBUMIN 3.7 g/dL (3.2-5.5); ALBUMIN/GLOBULIN RATIO 1.2 (1.0-2.2); ALKALINE PHOSPHATASE 58 IU/L (42-121); ALT ALANINE AMINOTRANSFERASE 19 IU/L (10-60); AST ASPARTATE AMINOTRANSFERASE 22 IU/L (10-42); BILIRUBIN,TOTAL 0.6 mg/dL (0.2-1.0); BUN - BLOOD UREA NITROGEN 11 mg/dL (6-20); CALCIUM 8.7 mg/dL (8.5-10.3); CARBON DIOXIDE - CO2 22 mmol/L (21-32); CHLORIDE 103 mmol/L (101-111); CHOL/HDL RATIO 2.9 (<4.4); CHOLESTEROL 177 mg/dL; CREATININE 0.7 mg/dL (0.4-1.0); CRP - C-REACTIVE PROTEIN < 1.0 mg/dL (0-1.0); GFR - MDRD 90 (>89); GLUCOSE 98 mg/dL (70-100); HDL CHOLESTEROL 61 mg/dL; LDL CHOLESTEROL,CALCULATED 97 mg/dL; LDL/HDL RATIO 1.6 (<4.4); SODIUM 132 mmol/L (135-145); TOTAL PROTEIN 6.7 g/dL (6.7-8.2); VLDL CHOLESTEROL 19 mg/dL
[2018-01-15 13:36] LABS: ANA SCREEN NEGATIVE (NEGATIVE)
== END 2018-01-13 10:02 | disposition home or self-care (01) ==
LOC: LAB.N 10:01
PROVIDERS: ATTEND Nurse Practitioner
DX: F41.1 Generalized anxiety disorder (principal); F10.20 Alcohol dependence, uncomplicated; F31.81 Bipolar II disorder; E55.9 Vitamin D deficiency, unspecified; F41.0 Panic disorder [episodic paroxysmal anxiety]; L71.9 Rosacea, unspecified
CPT/HCPCS: 36415; 80053; 80061; 82306; 82607; 82746; 83721; 84443; 85025; 85651; 86038; 86140

== ENCOUNTER 2018-04-16 08:00 | Outpatient (CLI) | payer MEDICAID ==
[2018-04-16 13:19] LABS: CALCIUM 9.3 mg/dL (8.5-10.3); CREATININE 0.7 mg/dL (0.4-1.0)
[2018-04-16 13:58] LABS: FOLLICLE STIMULATING HORMONE 9.28 mIU/mL
[2018-04-16 14:00] LABS: LUTEINIZING HORMONE 9.8 mIU/mL
== END 2018-04-16 08:01 ==
LOC: LAB.N 08:00
PROVIDERS: ATTEND Nurse Practitioner
DX: E87.1 Hypo-osmolality and hyponatremia (principal); E55.9 Vitamin D deficiency, unspecified; N95.9 Unspecified menopausal and perimenopausal disorder
CPT/HCPCS: 36415; 80048; 82306; 82670; 83001; 83002

== ENCOUNTER 2018-05-18 09:39 | Emergency (ER) | payer MEDICAID ==
[2018-05-18 11:01] LABS: MUDS CUTOFF CONCENTRATIONS CUTOFF CONC BELOW:
[2018-05-18 11:05] LABS: BILIRUBIN,URINE NEGATIVE (NEGATIVE); GLUCOSE, URINE (UA) NEGATIVE (NEGATIVE); KETONES,URINE (UA) TRACE mg/dL (NEGATIVE); LEUKOCYTE ESTERASE, URINE NEGATIVE (NEGATIVE); NITRITE,URINE NEGATIVE (NEGATIVE); OCCULT BLOOD,URINE MODERATE (NEGATIVE); PROTEIN,URINE NEGATIVE (NEGATIVE); UROBILINOGEN,URINE 0.2 (NORMAL) E.U./dL (NORMAL)
--- NOTE | 2018-05-18 11:05 | ED Physician Documentation ---
History of Present Illness - Stated complaint Stated Complaint: MHE - Chief complaint Chief Complaint: MHE - Additonal information Additional information: hx from pt 47 female alcoholic and bipolar feeling depressed and anxious/manic/racing thoughts for some time her [facility] counselor has been trying to get her into a dual dx bed this AM she was worse so brought to ED states anxious racing through sore int chest and abd pains cough severe nausea no vomit no diarrhea last drink this AM no hx DTs advised will order labs asked [facility] counselor if was arranging placement but she advises defer to [facility] Review of Systems Constitutional: denies: Fever, Chills Throat: reports: Sore throat Cardiac: reports: Chest pain / pressure Respiratory: reports: Cough GI: reports: Abdominal Pain, Nausea. 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 : None HEENT: None Psych: Depression, Anxiety, Bipolar disorder Musculoskeletal: None Derm: None - Past Surgical History Past Surgical History: Yes /DESIGN QUALITY ENGINEER: Tubal ligation - Present Medications Home Medications: Ambulatory Orders Medication Instructions Recorded Confirmed Doxycycline Hyclate 100 mg BID 10/31/16 07/01/17 hydrOXYzine PAMOATE [Vistaril] 1 tab PO DAILY 06/07/17 07/01/17 LORazepam [Lorazepam] 0.5 mg PO BID PRN #14 tablet 06/28/17 07/01/17 - Allergies Allergies/Adverse Reactions: Allergies Allergy/AdvReac Type Severity Reaction Status Date / Time No Known Drug Allergies Allergy Verified 07/01/17 06:03 - Social History Does the pt smoke?: Yes Smoking Status: Current every day smoker Does the pt drink ETOH?: No ETOH Use: Beer Does the pt have substance abuse?: No Substance Use and Type: Marijuana - Immunizations Immunizations are current?: No - POLST Patient has POLST: No PD ED PE NORMAL - Vitals Vital signs reviewed: Yes (tachy very anxious) - General General: Alert and oriented X 3 - HEENT HEENT: PERRL - Neck Neck: Supple, no meningeal sign - Cardiac Cardiac: RRR - Respiratory Respiratory: No respiratory distress, Clear bilaterally - Abdomen Abdomen: Soft, Other (mild upper abd TTP) - Derm Derm: Normal color - Extremities Extremities: No edema, No calf tenderness / cord - Psych Psych: Other (very agitated and anxious) Results - Vitals Vitals: Vital Signs - 24 hr 05/18/18 05/18/18 10:10 15:08 Temperature 36.8 C 37.1 C Heart Rate 109 H 83 Respiratory 18 18 Rate Blood Pressure 111/81 H 114/77 O2 Saturation 95 96 Oxygen O2 Source Room air - Labs Labs: Laboratory Tests 05/18/18 05/18/18 05/18/18 10:23 10:23 11:05 WBC RBC Hgb Hct MCV MCH MCHC RDW Plt Count MPV Neut # (Auto) Lymph # (Auto) [place] # (Auto) Eos # (Auto) Baso # (Auto) Absolute Nucleated RBC Nucleated RBC % Sodium 135 Potassium 4.0 Chloride 101 Carbon Dioxide 20 L Anion Gap 14.0 H BUN 7 Creatinine 0.7 Estimated GFR (MDRD) 90 Glucose 86 Calcium 9.9 Total Bilirubin 1.0 AST 47 H ALT 46 Alkaline Phosphatase 75 Troponin I Total Protein 7.9 Albumin 4.9 Globulin 3.0 Albumin/Globulin Ratio 1.6 Lipase 21 L Urine Color YELLOW Urine Clarity CLEAR Urine pH 6.0 Ur Specific [place] 1.010 Urine Protein NEGATIVE Urine Glucose (UA) NEGATIVE Urine Ketones TRACE Urine Occult Blood MODERATE H Urine Nitrite NEGATIVE Urine Bilirubin NEGATIVE Urine Urobilinogen 0.2 (NORMAL) Ur Leukocyte Esterase NEGATIVE Urine RBC 0-5 Urine WBC 0-3 Ur Squamous Epith Cells FEW Squamous Urine Bacteria Rare Ur Microscopic Review INDICATED Urine Culture Comments NOT INDICATED Urine HCG, Qual NEGATIVE Salicylates < 6.0 Urine Opiates Screen NEGATIVE Ur Oxycodone Screen NEGATIVE Urine Methadone Screen NEGATIVE Ur Propoxyphene Screen NEGATIVE Acetaminophen < 10 L Ur Barbiturates Screen NEGATIVE Ur Tricyclics Screen NEGATIVE Ur Phencyclidine Scrn NEGATIVE Ur Amphetamine Screen NEGATIVE U Methamphetamines Scrn NEGATIVE U Benzodiazepines Scrn NEGATIVE Urine Cocaine Screen NEGATIVE U Cannabinoids Screen POSITIVE H Ethyl Alcohol 29.2 05/18/18 05/18/18 11:05 11:05 WBC 9.4 RBC 4.99 Hgb 16.1 H Hct 46.6 MCV 93.5 MCH 32.4 H MCHC 34.6 RDW 13.1 Plt Count 241 MPV 8.2 Neut # (Auto) 6.3 Lymph # (Auto) 2.3 [place] # (Auto) 0.7 Eos # (Auto) 0.0 Baso # (Auto) 0.1 Absolute Nucleated RBC 0.01 Nucleated RBC % 0.1 Sodium Potassium Chloride Carbon Dioxide Anion Gap BUN Creatinine Estimated GFR (MDRD) Glucose Calcium Total Bilirubin AST ALT Alkaline Phosphatase Troponin I < 0.04 Total Protein Albumin Globulin Albumin/Globulin Ratio Lipase Urine Color Urine Clarity Urine pH Ur Specific [place] Urine Protein Urine Glucose (UA) Urine Ketones Urine Occult Blood Urine Nitrite Urine Bilirubin Urine Urobilinogen Ur Leukocyte Esterase Urine RBC Urine WBC Ur Squamous Epith Cells Urine Bacteria Ur Microscopic Review Urine Culture Comments Urine HCG, Qual Salicylates Urine Opiates Screen Ur Oxycodone Screen Urine Methadone Screen Ur Propoxyphene Screen Acetaminophen Ur Barbiturates Screen Ur Tricyclics Screen Ur Phencyclidine Scrn Ur Amphetamine Screen U Methamphetamines Scrn U Benzodiazepines Scrn Urine Cocaine Screen U Cannabinoids Screen Ethyl Alcohol - Rads (name of study) CXR Radiology: See rad report (no acute) PD MEDICAL DECISION MAKING - ED course ED course: seen by ELTON rene at [facility] dual dx bed Departure - Departure Disposition: 65 Psych Hosp/Unit DC/Xfer Clinical Impression: Bipolar 1 disorder, Alcohol abuse
[2018-05-18] MEDS ORDERED: MAG HYDROX/AL HYDROX/SIMETH 30 ML UDC PO STA (11:06)
[2018-05-18] MEDS ORDERED: LORazepam 0.5 MG TABLET PO STA (11:06)
[2018-05-18] MEDS ORDERED: LIDOCAINE VISCOUS 2% 15 ML UDC MM STA (11:06)
[2018-05-18] MEDS ORDERED: FAMOTIDINE 20 MG TABLET PO STA (11:07)
[2018-05-18 11:08] LABS: CLARITY,URINE CLEAR (CLEAR); HCG UR QUAL NEGATIVE
[2018-05-18 11:14] LABS: BACTERIA,URINE Rare /HPF (None Seen); RBC,URINE 0-5 /HPF (0-5); SQUAMOUS EPITHELIAL CELL,UR FEW Squamous (<= Few)
[2018-05-18 11:17] LABS: AMPHETAMINE SCREEN,URINE NEGATIVE (NEGATIVE); BENZODIAZEPINES SCREEN, URINE NEGATIVE (NEGATIVE); COCAINE SCREEN URINE NEGATIVE (NEGATIVE); METHADONE SCREEN, URINE NEGATIVE (NEGATIVE); METHAMPHETAMINES SCREEN, URINE NEGATIVE (NEGATIVE); OPIATE SCREEN, URINE NEGATIVE (NEGATIVE); OXYCODONE SCREEN, URINE NEGATIVE (NEGATIVE); PROPOXYPHENE SCREEN, URINE NEGATIVE (NEGATIVE); TRICYCLIC ANTIDEPRESSANT,URINE NEGATIVE (NEGATIVE)
[2018-05-18 11:22] LABS: BASOPHILS # (AUTO) 0.1 10^3/uL (0.0-0.1); BASOPHILS % (AUTO) 0.8 %; EOSINOPHILS % (AUTO) 0.4 %; HGB - HEMOGLOBIN 16.1 g/dL (12.0-16.0); LYMPHOCYTES # (AUTO) 2.3 10^3/uL (1.5-3.5); LYMPHOCYTES % (AUTO) 24.6 %; MEAN CORPUSCULAR HEMOGLOBIN 32.4 pg (27.0-31.0); MEAN CORPUSCULAR HGB CONC 34.6 g/dL (32.0-36.0); MEAN CORPUSCULAR VOLUME 93.5 fL (81.0-99.0); MEAN PLATELET VOLUME 8.2 fL (7.9-10.8); MONOCYTES # (AUTO) 0.7 10^3/uL (0.0-1.0); MONOCYTES % (AUTO) 7.2 %; NEUTROPHILS # (AUTO) 6.3 10^3/uL (1.5-6.6); PLT - PLATELET COUNT 241 10^3/uL (130-450); RED BLOOD COUNT 4.99 10^6/uL (4.20-5.40); RED CELL DISTRIBUTION WIDTH 13.1 % (12.0-15.0); WHITE BLOOD COUNT 9.4 x10^3/uL (4.8-10.8)
[2018-05-18 11:38] LABS: ACETAMINOPHEN < 10 ug/mL (10-30); ALBUMIN 4.9 g/dL (3.2-5.5); ALBUMIN/GLOBULIN RATIO 1.6 (1.0-2.2); ALKALINE PHOSPHATASE 75 IU/L (42-121); ALT ALANINE AMINOTRANSFERASE 46 IU/L (10-60); AST ASPARTATE AMINOTRANSFERASE 47 IU/L (10-42); BUN - BLOOD UREA NITROGEN 7 mg/dL (6-20); CALCIUM 9.9 mg/dL (8.5-10.3); CARBON DIOXIDE - CO2 20 mmol/L (21-32); CHLORIDE 101 mmol/L (101-111); CREATININE 0.7 mg/dL (0.4-1.0); GFR - MDRD 90 (>89); GLUCOSE 86 mg/dL (70-100); LIPASE 21 U/L (22-51); SALICYLATE < 6.0 mg/dL; SODIUM 135 mmol/L (135-145); TOTAL PROTEIN 7.9 g/dL (6.7-8.2)
--- NOTE | 2018-05-18 12:12 | XRAY Report ---
Reason: cp Procedure Date: 05/18/2018 Accession Number: [id number] / [id number] Procedure: XR - Chest 2 View X-Ray CPT Code: 13264 FULL RESULT: EXAM: CHEST RADIOGRAPHY EXAM DATE: 05/18/2018 11:52 AM. CLINICAL HISTORY: Chest pain COMPARISON: 06/07/2017. TECHNIQUE: 2 views. FINDINGS: Lungs/Pleura: No focal opacities evident. No pleural effusion. No pneumothorax. Normal volumes. Mediastinum: Heart and mediastinal contours are unremarkable. Other: Upper lumbar levoscoliosis. IMPRESSION: Clear lungs. No acute findings. RADIA
[2018-05-18 15:09] VITALS: BP 114/77
== END 2018-05-18 19:31 ==
LOC: ED 09:39
DX: F31.9 Bipolar disorder, unspecified (principal); F10.10 Alcohol abuse, uncomplicated; F17.200 Nicotine dependence, unspecified, uncomplicated
CPT/HCPCS: 36415; 71046; 80053; 80306; 80307; 80320; 80329; 81001; 81025; 83690; 84484; 85025; 99283; 99284; A9270; 81003; 87086

== ENCOUNTER 2018-08-18 00:28 | Outpatient (CLI) | payer MEDICAID | END 2018-08-18 00:29 | disposition home or self-care (01) | LOC: EMS 00:28 | PROVIDERS: ATTEND Surgery | DX: R07.9 Chest pain, unspecified (principal); R05 Cough | CPT/HCPCS: A0425; A0429 ==

== ENCOUNTER 2018-08-18 00:44 | Emergency (ER) | payer MEDICAID ==
[2018-08-18] MEDS ORDERED: ASPIRIN CHEW 81 MG TABLET PO STA (01:14)
--- NOTE | 2018-08-18 01:39 | XRAY Report ---
Reason: cp Procedure Date: 08/18/2018 Accession Number: [id number] / [id number] Procedure: XR - Chest 2 View X-Ray CPT Code: 88807 FULL RESULT: EXAM: CHEST RADIOGRAPHY EXAM DATE: 08/18/2018 01:31 AM. CLINICAL HISTORY: Chest pain. COMPARISON: CHEST 2 VIEW 05/18/2018 11:46 AM. TECHNIQUE: 2 views. FINDINGS: Lungs/Pleura: No focal opacities evident. No pleural effusion. No pneumothorax. Normal volumes. Mediastinum: Heart and mediastinal contours are unremarkable. Other: None. IMPRESSION: Stable negative 2-view chest radiography. RADIA
[2018-08-18 01:45] LABS: BASOPHILS # (AUTO) 0.1 10^3/uL (0.0-0.1); BASOPHILS % (AUTO) 0.9 %; EOSINOPHILS # (AUTO) 0.2 10^3/uL (0.0-0.7); EOSINOPHILS % (AUTO) 2.1 %; HGB - HEMOGLOBIN 13.7 g/dL (12.0-16.0); LYMPHOCYTES # (AUTO) 2.3 10^3/uL (1.5-3.5); LYMPHOCYTES % (AUTO) 29.9 %; MEAN CORPUSCULAR HEMOGLOBIN 31.5 pg (27.0-31.0); MEAN CORPUSCULAR HGB CONC 34.4 g/dL (32.0-36.0); MEAN CORPUSCULAR VOLUME 91.6 fL (81.0-99.0); MEAN PLATELET VOLUME 8.3 fL (7.9-10.8); MONOCYTES # (AUTO) 0.7 10^3/uL (0.0-1.0); MONOCYTES % (AUTO) 8.7 %; NEUTROPHILS # (AUTO) 4.6 10^3/uL (1.5-6.6); NEUTROPHILS % (AUTO) 58.4 %; PLT - PLATELET COUNT 262 10^3/uL (130-450); RED BLOOD COUNT 4.36 10^6/uL (4.20-5.40); RED CELL DISTRIBUTION WIDTH 12.8 % (12.0-15.0); WHITE BLOOD COUNT 7.8 x10^3/uL (4.8-10.8)
[2018-08-18 01:52] LABS: ALBUMIN 4.4 g/dL (3.2-5.5); ALBUMIN/GLOBULIN RATIO 1.5 (1.0-2.2); BILIRUBIN,TOTAL 0.4 mg/dL (0.2-1.0); CALCIUM 9.3 mg/dL (8.5-10.3); CREATININE 0.7 mg/dL (0.4-1.0); TOTAL PROTEIN 7.3 g/dL (6.7-8.2)
[2018-08-18] MEDS ORDERED: SODIUM CHLORIDE 0.9% 500 ML IV ONE (02:42)
--- NOTE | 2018-08-18 02:45 | ED Physician Documentation ---
History of Present Illness - Stated complaint Stated Complaint: CP - Chief complaint Chief Complaint: Cardiac - History obtained from History obtained from: Patient - Additonal information Additional information: 47-year-old female presents the emergency department with 3 days of chest pressure which is continuous. The patient also reports feeling short of breath. There is no radiation of the symptoms. No triggering factors. The patient denies nausea, diaphoresis or dyspnea on exertion. The patient reports feeling generally unwell. No other associated symptoms. No relieving factors Review of Systems Constitutional: denies: Fever, Chills Eyes: denies: Discharge Ears: denies: Ear pain Nose: reports: Congestion Throat: denies: Sore throat Cardiac: reports: Chest pain / pressure Respiratory: denies: Cough GI: denies: Abdominal Pain : denies: Dysuria Skin: denies: Laceration (s) Musculoskeletal: denies: Neck pain Neurologic: reports: Generalized weakness. 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 : None HEENT: None Psych: Depression, Anxiety, Bipolar disorder Musculoskeletal: None Derm: None - Past Surgical History Past Surgical History: Yes /DONOR CENTER TECHNICIAN: Tubal ligation - Present Medications Home Medications: Ambulatory Orders Medication Instructions Recorded Confirmed Doxycycline Hyclate 100 mg BID 10/31/16 07/01/17 hydrOXYzine PAMOATE [Vistaril] 1 tab PO DAILY 06/07/17 07/01/17 LORazepam [Lorazepam] 0.5 mg PO BID PRN #14 tablet 06/28/17 07/01/17 - Allergies Allergies/Adverse Reactions: Allergies Allergy/AdvReac Type Severity Reaction Status Date / Time No Known Drug Allergies Allergy Verified 07/01/17 06:03 - Social History Does the pt smoke?: Yes Smoking Status: Current every day smoker Does the pt drink ETOH?: No Does the pt have substance abuse?: No - Immunizations Immunizations are current?: No - POLST Patient has POLST: No PD ED PE NORMAL - General General: Alert and oriented X 3, No acute distress - HEENT HEENT: Atraumatic, PERRL, EOMI, Ears normal - Neck Neck: Supple, no meningeal sign - Cardiac Cardiac: RRR, Strong equal pulses - Respiratory Respiratory: No respiratory distress, Clear bilaterally - Abdomen Abdomen: Soft, Non tender, Non distended - Back Back: No CVA TTP - Derm Derm: Normal color - Extremities Extremities: No deformity, No edema - Neuro Neuro: Alert and oriented X 3, geriatric nurse assistant 2-12 intact, Normal speech - Psych Psych: Normal affect Results - Vitals Vitals: Vital Signs - 24 hr 08/18/18 08/18/18 08/18/18 00:55 01:31 03:11 Temperature 36.2 C L Heart Rate 89 79 Respiratory 19 17 15 Rate Blood Pressure 93/76 O2 Saturation 98 97 08/18/18 08/18/18 08/18/18 03:13 03:16 03:44 Temperature Heart Rate 72 68 Respiratory 14 16 Rate Blood Pressure 82/55 L O2 Saturation 99 99 08/18/18 08/18/18 08/18/18 04:03 04:10 04:19 Temperature Heart Rate 73 Respiratory 14 16 16 Rate Blood Pressure 93/66 O2 Saturation 98 Oxygen O2 Source Room air - EKG (time done) 00:48 Rate: Rate (enter#) Rhythm: NSR Intervals: Normal MI, QRS normal QRS: Normal Ischemia: Normal ST segments - Labs Labs: Laboratory Tests 08/18/18 08/18/18 08/18/18 01:31 01:31 01:31 WBC 7.8 RBC 4.36 Hgb 13.7 Hct 39.9 MCV 91.6 MCH 31.5 H MCHC 34.4 RDW 12.8 Plt Count 262 MPV 8.3 Neut # (Auto) 4.6 Lymph # (Auto) 2.3 [place] # (Auto) 0.7 Eos # (Auto) 0.2 Baso # (Auto) 0.1 Absolute Nucleated RBC 0.00 Nucleated RBC % 0.0 Sodium 138 Potassium 3.5 Chloride 106 Carbon Dioxide 22 Anion Gap 10.0 BUN 11 Creatinine 0.7 Estimated GFR (MDRD) 90 Glucose 108 H Calcium 9.3 Total Bilirubin 0.4 AST 29 ALT 47 Alkaline Phosphatase 57 Troponin I < 0.04 Total Protein 7.3 Albumin 4.4 Globulin 2.9 Albumin/Globulin Ratio 1.5 Lipase 30 08/18/18 03:32 WBC RBC Hgb Hct MCV MCH MCHC RDW Plt Count MPV Neut # (Auto) Lymph # (Auto) [place] # (Auto) Eos # (Auto) Baso # (Auto) Absolute Nucleated RBC Nucleated RBC % Sodium Potassium Chloride Carbon Dioxide Anion Gap BUN Creatinine Estimated GFR (MDRD) Glucose Calcium Total Bilirubin AST ALT Alkaline Phosphatase Troponin I < 0.04 Total Protein Albumin Globulin Albumin/Globulin Ratio Lipase - Rads (name of study) CXR Radiology: Final report received, See rad report (Stable negative 2-view chest radiography. ) PD MEDICAL DECISION MAKING - ED course ED course: The patient's workup does not reveal any significant abnormality that would necessitate admission to the hospital. The patient's heart score places her into a low risk category and she appears appropriate for discharge and ongoing outpatient management. On reevaluation the patient is resting comfortably and is comfortable with this plan and already has outpatient follow-up scheduled. I discussed warning signs and recommended returning for any worsening or any concerns Departure - Departure Disposition: 01 Home, Self Care Clinical Impression: Chest pain Qualifiers: Chest pain type: unspecified Qualified Code(s): R07.9 - Chest pain, unspecified Condition: Good Instructions: ED Chest Pain O Follow-Up: Lety Hawkins DNP [Primary Care Provider] - Within 3 Days (Please ask your primary about arranging an outpatientStress test) Comments: Please return for any worsening or any concerns
[2018-08-18 04:03] VITALS: BP 93/66
== END 2018-08-18 04:20 | disposition home or self-care (01) ==
LOC: EDUNIT# → ED 00:44
DX: R07.9 Chest pain, unspecified (principal); F17.200 Nicotine dependence, unspecified, uncomplicated
CPT/HCPCS: 36415; 71046; 80053; 83690; 84484; 85025; 93005; 96360; 99283; 99284

== ENCOUNTER 2018-08-21 19:39 | Emergency (ER) | payer MEDICAID ==
[2018-08-21 20:21] LABS: BASOPHILS # (AUTO) 0.1 10^3/uL (0.0-0.1); BASOPHILS % (AUTO) 1.2 %; EOSINOPHILS # (AUTO) 0.1 10^3/uL (0.0-0.7); EOSINOPHILS % (AUTO) 1.3 %; HGB - HEMOGLOBIN 13.4 g/dL (12.0-16.0); LYMPHOCYTES # (AUTO) 2.5 10^3/uL (1.5-3.5); LYMPHOCYTES % (AUTO) 36.9 %; MEAN CORPUSCULAR HEMOGLOBIN 30.8 pg (27.0-31.0); MEAN CORPUSCULAR HGB CONC 33.3 g/dL (32.0-36.0); MEAN CORPUSCULAR VOLUME 92.5 fL (81.0-99.0); MONOCYTES # (AUTO) 0.5 10^3/uL (0.0-1.0); MONOCYTES % (AUTO) 7.9 %; NEUTROPHILS # (AUTO) 3.6 10^3/uL (1.5-6.6); NEUTROPHILS % (AUTO) 52.7 %; PLT - PLATELET COUNT 269 10^3/uL (130-450); RED BLOOD COUNT 4.35 10^6/uL (4.20-5.40); RED CELL DISTRIBUTION WIDTH 12.4 % (12.0-15.0); WHITE BLOOD COUNT 6.8 x10^3/uL (4.8-10.8)
[2018-08-21 20:33] LABS: ALBUMIN 4.4 g/dL (3.2-5.5); ALBUMIN/GLOBULIN RATIO 1.6 (1.0-2.2); BILIRUBIN,TOTAL 0.5 mg/dL (0.2-1.0); CALCIUM 9.2 mg/dL (8.5-10.3); CREATININE 0.8 mg/dL (0.4-1.0); TOTAL PROTEIN 7.1 g/dL (6.7-8.2)
[2018-08-21 21:12] LABS: BILIRUBIN,URINE NEGATIVE (NEGATIVE); GLUCOSE, URINE (UA) NEGATIVE (NEGATIVE); KETONES,URINE (UA) NEGATIVE (NEGATIVE); LEUKOCYTE ESTERASE, URINE NEGATIVE (NEGATIVE); NITRITE,URINE NEGATIVE (NEGATIVE); OCCULT BLOOD,URINE SMALL (NEGATIVE); PROTEIN,URINE NEGATIVE (NEGATIVE); UROBILINOGEN,URINE 0.2 (NORMAL) E.U./dL (NORMAL)
[2018-08-21 21:16] LABS: CLARITY,URINE CLEAR (CLEAR); HCG UR QUAL NEGATIVE
[2018-08-21 21:21] LABS: BACTERIA,URINE Many /HPF (None Seen); SQUAMOUS EPITHELIAL CELL,UR FEW Squamous (<= Few)
[2018-08-21] MEDS ORDERED: IPRATROPIUM/ALBUTEROL 3 ML NEB INH STA (21:22)
--- NOTE | 2018-08-21 21:29 | ED Physician Documentation ---
History of Present Illness - Stated complaint Stated Complaint: CHEST/BACK PX - Chief complaint Chief Complaint: Cardiac - History obtained from History obtained from: Patient, Family - History of Present Illness Timing: How many weeks ago (several) Pain level max: 6 Pain level now: 2 - Additonal information Additional information: 47-year-old female presents the emergency department complaint of chest tightness for the past several weeks. Feeling like she is unable to take a full breath. Had used inhalers in the past, but does not use them for the past several months. Does not know what the inhalers were. She does smoke but is unable to take a full deep breath so she is cut back on her smoking. She just got out of a 30-day rehab for alcohol. No calf pain. No recent surgery. No plane rides or immobilization. No history of blood clots or pulmonary embolisms. She was seen here a few days ago for same Review of Systems Ten Systems: 10 systems reviewed and negative Constitutional: denies: Fever, Chills Ears: denies: Ear pain Nose: denies: Rhinorrhea / runny nose, Congestion Throat: denies: Sore throat Cardiac: denies: Chest pain / pressure Respiratory: reports: Dyspnea, Wheezing. 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 : None HEENT: None Psych: Depression, Anxiety, Bipolar disorder Musculoskeletal: None Derm: None - Past Surgical History Past Surgical History: Yes /YARN WRAPPER: Tubal ligation - Present Medications Home Medications: Ambulatory Orders Medication Instructions Recorded Confirmed Albuterol Sulf [Ventolin Hfa 1 - 2 puffs INH Q4HR PRN #1 inhaler 08/21/18 Inhaler] Meloxicam [Mobic] 15 mg PO DAILY PRN #20 tablet 08/21/18 predniSONE [Deltasone] 10 mg PO [id number] #42 tab 08/21/18 - Allergies Allergies/Adverse Reactions: Allergies Allergy/AdvReac Type Severity Reaction Status Date / Time hydromorphone [From Dilaudid] Allergy Nausea Verified 08/21/18 19:55 - Social History Does the pt smoke?: Yes Smoking Status: Current every day smoker Does the pt drink ETOH?: No Does the pt have substance abuse?: No - Immunizations Immunizations are current?: No Immunizations: TDAP >10years/unknown - POLST Patient has POLST: No PD ED PE NORMAL - Vitals Vital signs reviewed: Yes - General General: Alert and oriented X 3, No acute distress, Well developed/nourished - HEENT HEENT: PERRL, Moist mucous membranes - Neck Neck: Supple, no meningeal sign - Cardiac Cardiac: RRR, Strong equal pulses - Respiratory Respiratory: No respiratory distress, Other (Diminished breath sounds bilate rally) - Abdomen Abdomen: Soft, Non tender, Non distended - Back Back: No spinal TTP - Derm Derm: Warm and dry - Extremities Extremities: No edema, No calf tenderness / cord - Neuro Neuro: Alert and oriented X 3 - Psych Psych: Normal mood, Normal affect Results - Vitals Vitals: Vital Signs - 24 hr 08/21/18 08/21/18 08/21/18 19:43 21:50 21:51 Temperature 36.5 C 37.6 C H Heart Rate 97 67 78 Respiratory 16 18 Rate Blood Pressure 128/77 101/73 O2 Saturation 97 100 08/21/18 08/21/18 22:37 22:39 Temperature 36.9 C Heart Rate 69 Respiratory 17 Rate Blood Pressure 100/78 O2 Saturation 98 Oxygen O2 Source Room air - EKG (time done) 1950 Rate: Rate (enter#) (89) Rhythm: NSR [place]: Normal Intervals: Normal [place] QRS: Normal Ischemia: Normal ST segments - Labs Labs: Laboratory Tests 08/21/18 08/21/18 08/21/18 20:16 20:16 20:16 WBC 6.8 RBC 4.35 Hgb 13.4 Hct 40.2 MCV 92.5 MCH 30.8 MCHC 33.3 RDW 12.4 Plt Count 269 MPV 8.0 Neut # (Auto) 3.6 Lymph # (Auto) 2.5 [place] # (Auto) 0.5 Eos # (Auto) 0.1 Baso # (Auto) 0.1 Absolute Nucleated RBC 0.00 Nucleated RBC % 0.1 Sodium 134 L Potassium 3.4 L Chloride 101 Carbon Dioxide 24 Anion Gap 9.0 BUN 11 Creatinine 0.8 Estimated GFR (MDRD) 78 L Glucose 126 H Calcium 9.2 Total Bilirubin 0.5 AST 32 ALT 38 Alkaline Phosphatase 54 Troponin I < 0.04 Total Protein 7.1 Albumin 4.4 Globulin 2.7 Albumin/Globulin Ratio 1.6 Lipase 31 Urine Color Urine Clarity Urine pH Ur Specific [place] Urine Protein Urine Glucose (UA) Urine Ketones Urine Occult Blood Urine Nitrite Urine Bilirubin Urine Urobilinogen Ur Leukocyte Esterase Urine RBC Urine WBC Ur Squamous Epith Cells Urine Bacteria Ur Microscopic Review Urine Culture Comments Urine HCG, Qual 08/21/18 21:00 WBC RBC Hgb Hct MCV MCH MCHC RDW Plt Count MPV Neut # (Auto) Lymph # (Auto) Young # (Auto) Eos # (Auto) Baso # (Auto) Absolute Nucleated RBC Nucleated RBC % Sodium Potassium Chloride Carbon Dioxide Anion Gap BUN Creatinine Estimated GFR (MDRD) Glucose Calcium Total Bilirubin AST ALT Alkaline Phosphatase Troponin I Total Protein Albumin Globulin Albumin/Globulin Ratio Lipase Urine Color YELLOW Urine Clarity CLEAR Urine pH 6.0 Ur Specific [place] 1.010 Urine Protein NEGATIVE Urine Glucose (UA) NEGATIVE Urine Ketones NEGATIVE Urine Occult Blood SMALL H Urine Nitrite NEGATIVE Urine Bilirubin NEGATIVE Urine Urobilinogen 0.2 (NORMAL) Ur Leukocyte Esterase NEGATIVE Urine RBC 6-10 H Urine WBC 4-5 Ur Squamous Epith Cells FEW Squamous Urine Bacteria Many H Ur Microscopic Review INDICATED Urine Culture Comments INDICATED Urine HCG, Qual NEGATIVE - Rads (name of study) cxr Radiology: Prelim report reviewed, EMP read contemporaneously, See rad report (No acute disease) PD MEDICAL DECISION MAKING - ED course Complexity details: reviewed old records, reviewed results, re-evaluated patient, considered differential (No ST elevation [place], no aortic dissection, no PE, no tension pneumothorax, no aortic aneurysm), d/w patient ED course: 47-year-old female presents to the emergency department with what appears to be a likely viral syndrome with asthma exacerbation. Feels better after nebulizer treatment and Toradol. Also given dexamethasone. No evidence of pulmonary embolus. Normal EKG. Normal chest x-ray. Negative troponin. Breath sounds improved after nebulizer treatment. Will place on inhaler for home. We will have her follow-up with her doctor for further evaluation and care. Patient counseled regarding signs and symptoms for which I believe and urgent re- evaluation would be necessary. Patient with good understanding of and agreement to plan and is comfortable going home at this time This document was made in part using voice recognition software. While efforts are made to proofread this document, sound alike and grammatical errors may occur. Departure - Departure Disposition: 01 Home, Self Care Clinical Impression: Viral syndrome Asthma exacerbation Qualifiers: Asthma severity: unspecified severity Asthma persistence: unspecified Qualified Code(s): J45.901 - Unspecified asthma with (acute) exacerbation Condition: Good Instructions: ED Reactive Airway Disease, ED Viral Syndrome Follow-Up: Lety Hawkins DNP [Primary Care Provider] - Within 1 week Prescriptions: Albuterol Sulf [Ventolin Hfa Inhaler] 1 - 2 puffs INH Q4HR PRN #1 inhaler PRN Reason: Shortness Of Air/Wheezing Meloxicam [Mobic] 15 mg PO DAILY PRN #20 tablet PRN Reason: pain predniSONE [Deltasone] 10 mg PO [id number] #42 tab Comments: Return if you worsen. Follow-up with your doctor for further evaluation and care. Use the medications as prescribed.
--- NOTE | 2018-08-21 22:07 | XRAY Report ---
Reason: Chest Pain Procedure Date: 08/21/2018 Accession Number: [id number] / [id number] Procedure: XR - Chest 1 View X-Ray CPT Code: 48852 FULL RESULT: EXAM: CHEST RADIOGRAPHY EXAM DATE: 08/21/2018 09:16 PM. CLINICAL HISTORY: Chest pain for a week, getting worse since yesterday. COMPARISON: CHEST 2 VIEW 08/18/2018 1:19 AM. TECHNIQUE: 1 view. FINDINGS: Lungs/Pleura: No focal opacities evident. No pleural effusion. No pneumothorax. Mediastinum: Within exam limitations, the cardiomediastinal contour is normal. Other: Mild S-shaped scoliosis. No fractures identified. IMPRESSION: Mild S-shaped scoliosis, otherwise unremarkable single view chest. RADIA
[2018-08-21] MEDS ORDERED: KETOROLAC 30 MG/ML VIAL IVP STA (22:15)
[2018-08-21] MEDS ORDERED: DEXAMETHASONE 10 MG/ML VIAL PO STA (22:26)
[2018-08-21] MEDS ORDERED: KETOROLAC 30 MG/ML VIAL IM STA (22:26)
[2018-08-21 22:37] VITALS: BP 100/78
[2018-08-21] MEDS ORDERED: CHERRY SYRUP 10 ML UDC PO ONE (22:37)
== END 2018-08-21 22:48 | disposition home or self-care (01) ==
LOC: ED 19:39
DX: J44.1 Chronic obstructive pulmonary disease with (acute) exacerbation (principal); J45.901 Unspecified asthma with (acute) exacerbation; B34.9 Viral infection, unspecified; R07.89 Other chest pain; F17.200 Nicotine dependence, unspecified, uncomplicated
CPT/HCPCS: 36415; 71045; 80053; 81001; 81025; 83690; 84484; 85025; 87086; 93005; 94640; 94664; 96372; 99283; 99284; A9270; 81003

== ENCOUNTER 2018-08-25 11:09 | Outpatient (CLI) | payer MEDICAID ==
--- NOTE | 2018-08-25 15:46 | XRAY Report ---
Reason: MUSCLE SPASM Procedure Date: 08/25/2018 Accession Number: [id number] / [id number] Procedure: XRN - Thoracic Spine 2 View CPT Code: FULL RESULT: EXAM: THORACIC SPINE RADIOGRAPHY EXAM DATE: 08/25/2018 11:33 AM. CLINICAL HISTORY: Muscle spasm. Back pain. COMPARISON: Chest 1 view 08/21/2018 9:16 PM. Chest 2 view 08/18/2018 1:19 AM. TECHNIQUE: 2 views. FINDINGS: Alignment: Normal. No spondylolisthesis or scoliosis. Bones: No acute fracture or bony lesion. Minimal degenerative spurring. Disks: Mild multilevel disk space narrowing throughout the thoracic spine largely the mid thoracic spine. Soft Tissues: Normal. The visualized lungs and cardiomediastinal silhouette are normal. IMPRESSION: 1. Mild degenerative changes of the thoracic spine. RADIA
--- NOTE | 2018-08-25 15:47 | XRAY Report ---
Reason: MUSCLE SPASM Procedure Date: 08/25/2018 Accession Number: [id number] / [id number] Procedure: XRN - Lumbar Spine 2 View CPT Code: FULL RESULT: EXAM: LUMBOSACRAL SPINE RADIOGRAPHY EXAM DATE: 08/25/2018 11:33 AM. CLINICAL HISTORY: Muscle spasm. Back pain. COMPARISONS: None. TECHNIQUE: 3 views. FINDINGS: Alignment: Levoscoliosis of the lumbar spine. Retrolisthesis of L2 on L3 measuring 3 mm. Bones: 6 lumbar-type vertebral bodies. For the purpose of this examination the superior most lumbar vertebral body would be deemed T12. No acute fracture or bony lesion. Degenerative spurring. Disks: Mild to moderate disk space narrowing involving the lumbar spine greatest at L2-L3, L3-L4 and L4-L5 greatest at L2-L3. Facets: Mild lumbar facet arthropathy. Sacroiliac Joints: Unremarkable. Soft Tissues: Normal. The visualized bowel gas pattern is normal. IMPRESSION: 1. Levoscoliosis of the lumbar spine. 2. Mild to moderate degenerative changes lumbar spine greatest at L2-L3. RADIA
== END 2018-08-25 11:10 | disposition home or self-care (01) ==
LOC: DI.N 11:09
PROVIDERS: ATTEND Nurse Practitioner
DX: M51.34 Other intervertebral disc degeneration, thoracic region (principal); M51.36 Other intervertebral disc degeneration, lumbar region; M47.9 Spondylosis, unspecified
CPT/HCPCS: 72070; 72100

== ENCOUNTER 2018-09-01 20:01 | Emergency (ER) | payer MEDICAID ==
[2018-09-01 20:37] LABS: MUDS CUTOFF CONCENTRATIONS CUTOFF CONC BELOW:
[2018-09-01 20:41] LABS: BILIRUBIN,URINE NEGATIVE (NEGATIVE); CLARITY,URINE CLEAR (CLEAR); GLUCOSE, URINE (UA) NEGATIVE (NEGATIVE); KETONES,URINE (UA) NEGATIVE (NEGATIVE); LEUKOCYTE ESTERASE, URINE NEGATIVE (NEGATIVE); NITRITE,URINE NEGATIVE (NEGATIVE); OCCULT BLOOD,URINE TRACE-INTA (NEGATIVE); PH,URINE 5.5 PH (5.0-7.5); PROTEIN,URINE NEGATIVE (NEGATIVE); UROBILINOGEN,URINE 0.2 (NORMAL) E.U./dL (NORMAL)
[2018-09-01 20:54] LABS: AMPHETAMINE SCREEN,URINE NEGATIVE (NEGATIVE); BENZODIAZEPINES SCREEN, URINE NEGATIVE (NEGATIVE); COCAINE SCREEN URINE NEGATIVE (NEGATIVE); METHADONE SCREEN, URINE NEGATIVE (NEGATIVE); METHAMPHETAMINES SCREEN, URINE NEGATIVE (NEGATIVE); OPIATE SCREEN, URINE NEGATIVE (NEGATIVE); OXYCODONE SCREEN, URINE NEGATIVE (NEGATIVE); PROPOXYPHENE SCREEN, URINE NEGATIVE (NEGATIVE); TRICYCLIC ANTIDEPRESSANT,URINE NEGATIVE (NEGATIVE)
--- NOTE | 2018-09-01 20:55 | XRAY Report ---
Reason: cp Procedure Date: 09/01/2018 Accession Number: [id number] / [id number] Procedure: XR - Chest 2 View X-Ray CPT Code: 12738 FULL RESULT: EXAM: CHEST RADIOGRAPHY EXAM DATE: 09/01/2018 08:40 PM. CLINICAL HISTORY: Chest pain. COMPARISON: THORACIC SPINE 2 VIEW 08/25/2018 11:29 AM CHEST 1 VIEW 08/21/2018 9:16 PM. TECHNIQUE: 2 views. FINDINGS: Lungs/Pleura: No focal opacities evident. No pleural effusion. No pneumothorax. Normal volumes. Mediastinum: Heart and mediastinal contours are unremarkable. Other: None. IMPRESSION: Normal 2-view chest radiography. RADIA
[2018-09-01] MEDS: SODIUM CHLORIDE 0.9% 1,000 ML IV ONE (21:12)
[2018-09-01] MEDS: OLANZapine ODT 5 MG TABLET TL STA (21:13)
[2018-09-01] MEDS: ONDANSETRON 4 MG/2 ML VIAL IVP STA (21:15)
[2018-09-01] MEDS: FAMOTIDINE 20 MG in SODIUM CHLORIDE 0.9% 50 ML IV STA (21:16)
[2018-09-01 21:18] LABS: BASOPHILS # (AUTO) 0.1 10^3/uL (0.0-0.1); BASOPHILS % (AUTO) 0.9 %; EOSINOPHILS # (AUTO) 0.1 10^3/uL (0.0-0.7); EOSINOPHILS % (AUTO) 1.2 %; HGB - HEMOGLOBIN 13.7 g/dL (12.0-16.0); LYMPHOCYTES # (AUTO) 3.9 10^3/uL (1.5-3.5); LYMPHOCYTES % (AUTO) 34.6 %; MEAN CORPUSCULAR HEMOGLOBIN 30.5 pg (27.0-31.0); MEAN CORPUSCULAR HGB CONC 32.9 g/dL (32.0-36.0); MEAN CORPUSCULAR VOLUME 92.8 fL (81.0-99.0); MEAN PLATELET VOLUME 8.2 fL (7.9-10.8); MONOCYTES # (AUTO) 0.7 10^3/uL (0.0-1.0); MONOCYTES % (AUTO) 6.3 %; NEUTROPHILS # (AUTO) 6.4 10^3/uL (1.5-6.6); PLT - PLATELET COUNT 252 10^3/uL (130-450); RED BLOOD COUNT 4.49 10^6/uL (4.20-5.40); RED CELL DISTRIBUTION WIDTH 12.8 % (12.0-15.0); WHITE BLOOD COUNT 11.2 x10^3/uL (4.8-10.8)
[2018-09-01 21:29] LABS: ALBUMIN 4.3 g/dL (3.2-5.5); ALBUMIN/GLOBULIN RATIO 1.7 (1.0-2.2); BILIRUBIN,TOTAL 0.6 mg/dL (0.2-1.0); CREATININE 0.8 mg/dL (0.4-1.0); TOTAL PROTEIN 6.9 g/dL (6.7-8.2)
--- NOTE | 2018-09-01 22:25 | ED Physician Documentation ---
History of Present Illness - Stated complaint Stated Complaint: CP/BKPX/ABD PX - Chief complaint Chief Complaint: Cardiac - Additonal information Additional information: 47-year-old female presents to the emergency department with chronic chest pain which is been ongoing for the past several months. The patient reports pain throughout her chest diffusely. The patient also reports sporadic abdominal pain but currently is not experiencing any active abdominal pain. The patient reports intermittent episodes of nausea. The patient reports intermittent episodes of cough. Symptoms are ongoing. No triggering factors. No relieving factors. The patient is scheduled to see primary care again for the symptoms. Review of Systems Constitutional: denies: Fever, Chills Eyes: denies: Discharge Ears: denies: Ear pain Nose: denies: Congestion Throat: denies: Sore throat Cardiac: reports: Chest pain / pressure Respiratory: reports: Dyspnea GI: reports: Abdominal Pain, Nausea. 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: Tubal ligation - Present Medications Home Medications: Ambulatory Orders Medication Instructions Recorded Confirmed Albuterol Sulf [Ventolin Hfa 1 - 2 puffs INH Q4HR PRN #1 inhaler 08/21/18 Inhaler] Meloxicam [Mobic] 15 mg PO DAILY PRN #20 tablet 08/21/18 predniSONE [Deltasone] 10 mg PO [id number] #42 tab 08/21/18 - Allergies Allergies/Adverse Reactions: Allergies Allergy/AdvReac Type Severity Reaction Status Date / Time hydromorphone [From Dilaudid] Allergy Nausea Verified 09/01/18 20:09 - Social History Does the pt smoke?: Yes Smoking Status: Current every day smoker Does the pt drink ETOH?: No Does the pt have substance abuse?: No - Immunizations Immunizations are current?: No Immunizations: TDAP >10years/unknown - POLST Patient has POLST: No PD ED PE NORMAL - General General: Alert and oriented X 3, No acute distress - HEENT HEENT: Atraumatic, PERRL, EOMI, Ears normal - Neck Neck: Supple, no meningeal sign - Cardiac Cardiac: RRR, Strong equal pulses - Respiratory Respiratory: No respiratory distress, Clear bilaterally - Abdomen Abdomen: Soft, Non tender, Non distended - Derm Derm: Normal color - Extremities Extremities: No deformity - Neuro Neuro: Alert and oriented X 3, Normal speech - Psych Psych: Normal mood Results - Vitals Vitals: Vital Signs - 24 hr 09/01/18 09/01/18 09/01/18 20:10 21:52 22:48 Temperature 36.4 C L Heart Rate 87 64 56 L Respiratory 16 16 16 Rate Blood Pressure 135/101 H 102/69 92/65 O2 Saturation 100 100 98 Oxygen O2 Source Room air - EKG (time done) No standard instances Rhythm: NSR [place]: Normal Intervals: Normal [place] QRS: Normal Ischemia: Normal ST segments Other comments: Other comments (No acute ischemic changes) - Labs Labs: Laboratory Tests 09/01/18 09/01/18 09/01/18 20:35 21:07 21:07 WBC 11.2 H RBC 4.49 Hgb 13.7 Hct 41.7 MCV 92.8 MCH 30.5 MCHC 32.9 RDW 12.8 Plt Count 252 MPV 8.2 Neut # (Auto) 6.4 Lymph # (Auto) 3.9 H [place] # (Auto) 0.7 Eos # (Auto) 0.1 Baso # (Auto) 0.1 Absolute Nucleated RBC 0.00 Nucleated RBC % 0.0 Sodium 135 Potassium 4.0 Chloride 100 L Carbon Dioxide 26 Anion Gap 9.0 BUN 11 Creatinine 0.8 Estimated GFR (MDRD) 78 L Glucose 99 Calcium 9.0 Total Bilirubin 0.6 AST 14 ALT 23 Alkaline Phosphatase 47 Troponin I Total Protein 6.9 Albumin 4.3 Globulin 2.6 Albumin/Globulin Ratio 1.7 Lipase 40 Urine Color YELLOW Urine Clarity CLEAR Urine pH 5.5 Ur Specific [place] <=1.005 Urine Protein NEGATIVE Urine Glucose (UA) NEGATIVE Urine Ketones NEGATIVE Urine Occult Blood TRACE-INTA Urine Nitrite NEGATIVE Urine Bilirubin NEGATIVE Urine Urobilinogen 0.2 (NORMAL) Ur Leukocyte Esterase NEGATIVE Ur Microscopic Review NOT INDICATED Urine Culture Comments NOT INDICATED Urine Opiates Screen NEGATIVE Ur Oxycodone Screen NEGATIVE Urine Methadone Screen NEGATIVE Ur Propoxyphene Screen NEGATIVE Ur Barbiturates Screen NEGATIVE Ur Tricyclics Screen NEGATIVE Ur Phencyclidine Scrn NEGATIVE Ur Amphetamine Screen NEGATIVE U Methamphetamines Scrn NEGATIVE U Benzodiazepines Scrn NEGATIVE Urine Cocaine Screen NEGATIVE U Cannabinoids Screen NEGATIVE 09/01/18 09/01/18 21:07 22:48 WBC RBC Hgb Hct MCV MCH MCHC RDW Plt Count MPV Neut # (Auto) Lymph # (Auto) Heard # (Auto) Eos # (Auto) Baso # (Auto) Absolute Nucleated RBC Nucleated RBC % Sodium Potassium Chloride Carbon Dioxide Anion Gap BUN Creatinine Estimated GFR (MDRD) Glucose Calcium Total Bilirubin AST ALT Alkaline Phosphatase Troponin I < 0.04 < 0.04 Total Protein Albumin Globulin Albumin/Globulin Ratio Lipase Urine Color Urine Clarity Urine pH Ur Specific [place] Urine Protein Urine Glucose (UA) Urine Ketones Urine Occult Blood Urine Nitrite Urine Bilirubin Urine Urobilinogen Ur Leukocyte Esterase Ur Microscopic Review Urine Culture Comments Urine Opiates Screen Ur Oxycodone Screen Urine Methadone Screen Ur Propoxyphene Screen Ur Barbiturates Screen Ur Tricyclics Screen Ur Phencyclidine Scrn Ur Amphetamine Screen U Methamphetamines Scrn U Benzodiazepines Scrn Urine Cocaine Screen U Cannabinoids Screen - Rads (name of study) CXR Radiology: Final report received, See rad report PD MEDICAL DECISION MAKING - ED course ED course: The patient's symptoms are chronic, there is no acute changes today necessarily. The patient's workup in the emergency department does not reveal any acute abnormality. The patient is low risk per the heart score and is appropriate for an outpatient workup with stress test. Currently, I think pulmonary embolism is of low probability. The patient has no abdominal tenderness. On reevaluation the patient is resting comfortably and feels much improved and appears appropriate for discharge and ongoing outpatient management. I discussed warning signs and recommended returning for any worsening or any Departure - Departure Disposition: 01 Home, Self Care Clinical Impression: Bipolar 1 disorder Chest pain Qualifiers: Chest pain type: unspecified Qualified Code(s): R07.9 - Chest pain, unspecified Condition: Good Instructions: ED Chest Pain [facility] Follow-Up: Lety Hawkins DNP [Primary Care Provider] - Tomorrow (These ask your primary care to arrange for an outpatient echocardiogram and stress test to further assess your chronic chest pain) Comments: Please return to the emergency department for any worsening or any concerns
[2018-09-01 22:49] VITALS: BP 92/65
== END 2018-09-01 23:20 | disposition home or self-care (01) ==
LOC: ED 20:01
DX: R10.9 Unspecified abdominal pain (principal); R07.9 Chest pain, unspecified; F31.9 Bipolar disorder, unspecified; F17.200 Nicotine dependence, unspecified, uncomplicated; G89.29 Other chronic pain
CPT/HCPCS: 36415; 71046; 80053; 80306; 81001; 81003; 83690; 84484; 85025; 87086; 93005; 96361; 96365; 96375; 99283; 99284

== ENCOUNTER 2018-09-13 07:13 | Outpatient (CLI) | payer MEDICAID | END 2018-09-13 07:14 | disposition EMS.NT | LOC: EMS 07:13 | PROVIDERS: ATTEND Surgery | DX: R07.9 Chest pain, unspecified (principal) ==

== ENCOUNTER 2018-09-15 14:30 | Outpatient (CLI) | payer MEDICAID | END 2018-09-15 14:31 | disposition critical access hospital (66) | LOC: EMS 14:30 | PROVIDERS: ATTEND Surgery | DX: R10.10 Upper abdominal pain, unspecified (principal) | CPT/HCPCS: A0425; A0429 ==

== ENCOUNTER 2018-09-15 14:51 | Emergency (ER) | payer MEDICAID ==
[2018-09-15] MEDS ORDERED: KETOROLAC 60 MG/2 ML VIAL IM STA (15:02)
[2018-09-15] MEDS ORDERED: DEXAMETHASONE 10 MG/ML VIAL PO STA (15:02)
--- NOTE | 2018-09-15 15:13 | ED Physician Documentation ---
PD HPI CHEST PAIN - Stated complaint Stated Complaint: L ABD PX - History obtained from History obtained from: Patient, EMS - History of Present Illness Timing - onset: How many weeks ago (2) Timing - onset during: Rest Timing - duration: Weeks (2) Timing - details: Gradual onset, Still present, Waxing and waning Quality: Sharp, Pain Location: Left chest Radiation: Back Improved by: Rest Worsened by: Inspiration, Palpation Associated symptoms: Cough Similar symptoms before: Diagnosis (costochondritis) Recently seen: Emergency Dept, Admitted - Additional information Additional information: 47-year-old female who has had a lifelong history of costochondritis has developed left-sided chest pain and difficulty getting a full deep breath. She is recently been into a treatment program for alcohol and when she got out of that treatment program she has had an exacerbation of asthma and was placed on a course of prednisone which she did not finish. She continues to have this pain in her side and she was seen at [facility] days ago and diagnosed with pneumonia and placed on Levaquin. She states that she is not having a lot of cough and that sometimes she feels that she can breathe just fine and that she has not been using her inhaler on any regular basis. She recalls that she has had this same pain in her side since childhood. Review of Systems Constitutional: reports: Fatigue. denies: Fever, Chills, Myalgias Eyes: denies: Decreased vision Ears: denies: Ear pain Nose: denies: Rhinorrhea / runny nose, Congestion Throat: denies: Sore throat Cardiac: reports: Chest pain / pressure. 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: Tubal ligation - Present Medications Home Medications: Ambulatory Orders Medication Instructions Recorded Confirmed Albuterol Sulf [Ventolin Hfa 1 - 2 puffs INH Q4HR PRN #1 inhaler 08/21/18 Inhaler] Meloxicam [Mobic] 15 mg PO DAILY PRN #20 tablet 08/21/18 predniSONE [Deltasone] 10 mg PO [id number] #42 tab 08/21/18 traMADol [Ultram] 50 - 100 mg PO Q6H PRN #20 tablet 09/15/18 - Allergies Allergies/Adverse Reactions: Allergies Allergy/AdvReac Type Severity Reaction Status Date / Time hydromorphone [From Dilaudid] Allergy Nausea Verified 09/15/18 15:03 - Social History Does the pt smoke?: Yes Smoking Status: Current every day smoker Does the pt drink ETOH?: No Does the pt have substance abuse?: No - Immunizations Immunizations are current?: No Immunizations: TDAP >10years/unknown - POLST Patient has POLST: No PD ED PE NORMAL - Vitals Vital signs reviewed: Yes (normal ) - General General: Alert and oriented X 3, Well developed/nourished, Other (starts out with tears and frustration about not being well. ) - HEENT HEENT: Atraumatic, PERRL, EOMI, Ears normal, Moist mucous membranes, Pharynx benign, Dentition benign - Neck Neck: Supple, no meningeal sign, No bony TTP - Cardiac Cardiac: RRR, No murmur - Respiratory Respiratory: No respiratory distress, Other (reduced breath sounds bibasilar. mild tenderness to the costal margin on the left side. 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, No motor deficit, No sensory deficit, Normal speech Eye Opening: Spontaneous Motor: Obeys Commands Verbal: Oriented GCS Score: 15 - Psych Psych: Normal mood, Normal affect Results - Vitals Vitals: Vital Signs - 24 hr 09/15/18 15:00 Temperature 36.7 C Heart Rate 95 Respiratory 18 Rate Blood Pressure 121/75 O2 Saturation 98 Oxygen O2 Source Room air - Rads (name of study) CXR 2 view Radiology: Prelim report reviewed (Impression: no acute intrathoracic plain film abnormality.), EMP read indepedently, See rad report PD MEDICAL DECISION MAKING - ED course Complexity details: reviewed old records, reviewed results, re-evaluated patient, considered differential, d/w patient ED course: 47-year-old female with subclinical asthma has developed costochondritis related to asthma exacerbation and she is no longer amenable to taking narcotic pain reliever. She has some improvement with decadron and toradal but she did not want to do more prednisone. Her lung exam today shows reasonable air movement and she will try some tramadol for the pain. She will continue the levaquin. Departure - Departure Disposition: 01 Home, Self Care Clinical Impression: Costochondritis Condition: Stable Instructions: ED Chest Pain Costochondritis Follow-Up: Lety Hawkins DNP [Primary Care Provider] - Prescriptions: traMADol [Ultram] 50 - 100 mg PO Q6H PRN #20 tablet PRN Reason: Pain
[2018-09-15] MEDS ORDERED: CHERRY SYRUP 10 ML UDC PO ONE (15:20)
--- NOTE | 2018-09-15 16:00 | XRAY Report ---
Reason: left sided chest pain Procedure Date: 09/15/2018 Accession Number: [id number] / [id number] Procedure: XR - Chest 2 View X-Ray CPT Code: 44075 FULL RESULT: EXAM: CHEST RADIOGRAPHY EXAM DATE: 09/15/2018 03:27 PM. CLINICAL HISTORY: Left sided chest pain. COMPARISON: CHEST 2 VIEW 09/01/2018 8:33 PM. TECHNIQUE: 2 views. FINDINGS: Lungs/Pleura: No focal opacities evident. No pleural effusion. No pneumothorax. Normal volumes. Mediastinum: Heart and mediastinal contours are unremarkable. Other: There is mild scoliotic curvature of the thoracolumbar spine. IMPRESSION: No acute intrathoracic plain film abnormality. RADIA
[2018-09-15 16:47] VITALS: BP 130/74
== END 2018-09-15 16:47 | disposition home or self-care (01) ==
LOC: EDUNIT# → ED 14:51
DX: M94.0 Chondrocostal junction syndrome [Tietze] (principal); J45.901 Unspecified asthma with (acute) exacerbation; F17.200 Nicotine dependence, unspecified, uncomplicated
CPT/HCPCS: 71046; 96372; 99283

== ENCOUNTER 2018-09-20 08:44 | Outpatient (CLI) | payer MEDICAID | END 2018-09-20 08:45 | disposition critical access hospital (66) | LOC: EMS 08:44 | PROVIDERS: ATTEND Surgery | DX: R07.89 Other chest pain (principal) ==

== ENCOUNTER 2018-09-20 09:00 | Emergency (ER) | payer MEDICAID ==
--- NOTE | 2018-09-20 09:07 | ED Physician Documentation ---
PD HPI ABD PAIN - Stated complaint Stated Complaint: ABD PX - Chief complaint Chief Complaint: Abd Pain - History obtained from History obtained from: Patient, EMS - History of Present Illness Timing - onset: How many days ago (1-2) Timing - duration: Days Timing - details: Gradual onset, Still present, Waxing and waning Quality: Cramping, Aching, Pain Location: Epigastric, Periumbilical Radiation: Lower back. No: Chest Improved by: No: Eating Worsened by: Eating, Breathing, Position Associated symptoms: Nausea. No: Fever, Vomiting, Diarrhea Similar symptoms before: No diagnosis (has had abd pains intermittently for many months, with normal imaging. Has had Rx for Omeprazole and Ranitidine in the past. Has history of interstitial cystitis and says this is hurting a lot the past week as well (chronic, but is worse lately, without obvious food trigger). Given the longer term stomach pains, she is concerned about celiac disease and also Crohns (had been looking it up online).) Review of Systems Constitutional: reports: Myalgias, Fatigue. denies: Fever, Chills Nose: denies: Rhinorrhea / runny nose, Congestion Throat: denies: Sore throat Cardiac: denies: Chest pain / pressure Respiratory: denies: Cough GI: reports: Abdominal Pain, Nausea. denies: Abdominal Swelling, Vomiting, Diarrhea : reports: Dysuria. 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 : None HEENT: None Psych: Depression, Anxiety, Bipolar disorder Musculoskeletal: None Derm: None - Past Surgical History Past Surgical History: Yes /LEARNING AND DEVELOPMENT OFFICER: Tubal ligation - Present Medications Home Medications: Ambulatory Orders Medication Instructions Recorded Confirmed Dexamethasone [Decadron] 4 mg PO DAILY #7 tablet 09/20/18 Lidocaine Viscous 2% [Xylocaine 5 ml PO Q4H PRN #200 ml 09/20/18 Viscous 2%] Ondansetron Odt [Zofran] 4 mg TL Q6H PRN #15 tablet 09/20/18 Phenazopyridine HCl [Pyridium] 200 mg PO TID PRN #20 tablet 09/20/18 - Allergies Allergies/Adverse Reactions: Allergies Allergy/AdvReac Type Severity Reaction Status Date / Time hydromorphone [From Dilaudid] Allergy Nausea Verified 09/15/18 15:03 tramadol Allergy Emesis Verified 09/20/18 09:06 opiates Allergy Emesis Uncoded 09/20/18 09:06 - Social History Does the pt smoke?: Yes Smoking Status: Former smoker Does the pt drink ETOH?: No Does the pt have substance abuse?: No - Immunizations Immunizations are current?: No Immunizations: TDAP >10years/unknown - POLST Patient has POLST: No PD ED PE NORMAL - Vitals Vital signs reviewed: Yes - General General: Alert and oriented X 3, Well developed/nourished - HEENT HEENT: Ears normal, Moist mucous membranes, Pharynx benign - Neck Neck: Supple, no meningeal sign, No adenopathy - Cardiac Cardiac: RRR, No murmur - Respiratory Respiratory: No respiratory distress, Clear bilaterally - Abdomen Abdomen: Normal bowel sounds, Soft, Non distended, No organomegaly, Other (tender upper abd/epigastric area without percussion nor rebound tenderness. No hernia felt.) Results - Vitals Vitals: Vital Signs - 24 hr 09/20/18 09/20/18 09/20/18 09:01 11:06 12:41 Temperature 36.8 C 36.4 C L Heart Rate 90 63 79 Respiratory 18 18 18 Rate Blood Pressure 127/100 H 103/78 120/89 H O2 Saturation 99 100 98 Oxygen O2 Source Room air - Labs Labs: Laboratory Tests 09/20/18 09/20/18 09/20/18 09:51 09:51 09:51 WBC 6.0 RBC 4.38 Hgb 13.4 Hct 39.0 MCV 89.1 MCH 30.5 MCHC 34.3 RDW 12.6 Plt Count 331 MPV 8.1 Neut # (Auto) 3.6 Lymph # (Auto) 1.8 [place] # (Auto) 0.5 Eos # (Auto) 0.1 Baso # (Auto) 0.0 Absolute Nucleated RBC 0.00 Nucleated RBC % 0.0 ESR Sodium 136 Potassium 3.9 Chloride 101 Carbon Dioxide 24 Anion Gap 11.0 BUN 10 Creatinine 0.7 Estimated GFR (MDRD) 90 Glucose 107 H Calcium 9.4 Magnesium Total Bilirubin 0.8 AST 13 ALT 16 Alkaline Phosphatase 51 Total Protein 7.2 Albumin 4.5 Globulin 2.7 Albumin/Globulin Ratio 1.7 Lipase 28 Rheumatoid Factor NEGATIVE 09/20/18 09/20/18 09:51 09:51 WBC RBC Hgb Hct MCV MCH MCHC RDW Plt Count MPV Neut # (Auto) Lymph # (Auto) [place] # (Auto) Eos # (Auto) Baso # (Auto) Absolute Nucleated RBC Nucleated RBC % ESR 9 Sodium Potassium Chloride Carbon Dioxide Anion Gap BUN Creatinine Estimated GFR (MDRD) Glucose Calcium Magnesium 2.1 Total Bilirubin AST ALT Alkaline Phosphatase Total Protein Albumin Globulin Albumin/Globulin Ratio Lipase Rheumatoid Factor PD MEDICAL DECISION MAKING - ED course Complexity details: reviewed results, re-evaluated patient (several unrelated processes, with interstitial cystitis by history and current symptoms, chronic repetitive upper abd pains, and also URI symptoms. ), considered differential (seems anxious. Is doing good for keeping sober for 2 months now. Having some anxiety type symptoms, and seems to expand complaints such as dysuria. Also ongoing left lower ribs/chest wall pains Dx previously as costchondritis. ), d/w patient Departure - Departure Disposition: Home, Self Care Clinical Impression: Dysuria, Costochondritis Gastritis Qualifiers: Gastritis type: unspecified gastritis Chronicity: unspecified Gastritis bleeding: without bleeding Qualified Code(s): K29.70 - Gastritis, unspecified, without bleeding Condition: Stable Record reviewed to determine appropriate education?: Yes Follow-Up: Lety Hawkins DNP [Primary Care Provider] - Prescriptions: Dexamethasone [Decadron] 4 mg PO DAILY #7 tablet Lidocaine Viscous 2% [Xylocaine Viscous 2%] 5 ml PO Q4H PRN #200 ml PRN Reason: Pain Ondansetron Odt [Zofran] 4 mg TL Q6H PRN #15 tablet PRN Reason: Nausea / Vomiting Phenazopyridine HCl [Pyridium] 200 mg PO TID PRN #20 tablet PRN Reason: dysuria Comments: I would use your ranitidine that you have at home daily. You can use the lidocaine with an antacid periodically if needed for the stomach discomfort. Ondansetron if needed for nausea. Avoid NSAIDs for now. Instead use the Decadron to help with the costochondritis and see if that does better. Use the phenazopyridine for your interstitial cystitis. There were some lab tests we did today that do not result until later or tomorrow. Follow-up with your provider as planned and they can follow-up on these tests. Discharge Date/Time: 09/20/18 12:49
[2018-09-20] MEDS ORDERED: SODIUM CHLORIDE 0.9% 1,000 ML IV ONE (09:41)
[2018-09-20] MEDS ORDERED: KETOROLAC 15 MG/ML VIAL IVP STA (09:41)
[2018-09-20] MEDS ORDERED: LIDOCAINE VISCOUS 2% 15 ML UDC MM STA (09:42)
[2018-09-20] MEDS ORDERED: MAG HYDROX/AL HYDROX/SIMETH 30 ML UDC PO STA (09:42)
[2018-09-20] MEDS ORDERED: ACETAMINOPHEN 325 MG TABLET PO STA (09:42)
[2018-09-20] MEDS ORDERED: PHENAZOPYRIDINE 100 MG TABLET PO STA (09:42)
[2018-09-20] MEDS ORDERED: FAMOTIDINE 20 MG/2 ML VIAL IVP STA (09:42)
[2018-09-20] MEDS ORDERED: ONDANSETRON 4 MG/2 ML VIAL IVP STA (09:42)
[2018-09-20] MEDS ORDERED: DEXAMETHASONE 10 MG/ML VIAL IVP STA (09:42)
[2018-09-20 10:02] LABS: BASOPHILS % (AUTO) 0.6 %; EOSINOPHILS # (AUTO) 0.1 10^3/uL (0.0-0.7); EOSINOPHILS % (AUTO) 1.8 %; HGB - HEMOGLOBIN 13.4 g/dL (12.0-16.0); LYMPHOCYTES # (AUTO) 1.8 10^3/uL (1.5-3.5); LYMPHOCYTES % (AUTO) 29.4 %; MEAN CORPUSCULAR HEMOGLOBIN 30.5 pg (27.0-31.0); MEAN CORPUSCULAR HGB CONC 34.3 g/dL (32.0-36.0); MEAN CORPUSCULAR VOLUME 89.1 fL (81.0-99.0); MEAN PLATELET VOLUME 8.1 fL (7.9-10.8); MONOCYTES # (AUTO) 0.5 10^3/uL (0.0-1.0); MONOCYTES % (AUTO) 8.5 %; NEUTROPHILS # (AUTO) 3.6 10^3/uL (1.5-6.6); NEUTROPHILS % (AUTO) 59.7 %; PLT - PLATELET COUNT 331 10^3/uL (130-450); RED BLOOD COUNT 4.38 10^6/uL (4.20-5.40); RED CELL DISTRIBUTION WIDTH 12.6 % (12.0-15.0)
[2018-09-20 10:11] LABS: ALBUMIN 4.5 g/dL (3.2-5.5); ALBUMIN/GLOBULIN RATIO 1.7 (1.0-2.2); BILIRUBIN,TOTAL 0.8 mg/dL (0.2-1.0); CALCIUM 9.4 mg/dL (8.5-10.3); CREATININE 0.7 mg/dL (0.4-1.0); TOTAL PROTEIN 7.2 g/dL (6.7-8.2)
[2018-09-20 10:16] LABS: RHEUMATOID FACTOR NEGATIVE (Negative)
[2018-09-20 12:42] VITALS: BP 120/89
[2018-09-23 14:06] LABS: ANA SCREEN NEGATIVE (NEGATIVE)
== END 2018-09-20 12:49 | disposition home or self-care (01) ==
LOC: EDUNIT# → ED 09:00
DX: R30.0 Dysuria (principal); M94.0 Chondrocostal junction syndrome [Tietze]; K29.70 Gastritis, unspecified, without bleeding; Z87.891 Personal history of nicotine dependence
CPT/HCPCS: 36415; 80053; 83690; 83735; 85025; 85651; 86038; 86225; 86430; 96374; 96375; 99283; 99284; A9270

== ENCOUNTER 2018-09-22 06:31 | Outpatient (CLI) | payer MEDICAID | END 2018-09-22 06:32 | disposition critical access hospital (66) | LOC: EMS 06:31 | PROVIDERS: ATTEND Surgery | DX: R06.00 Dyspnea, unspecified (principal) ==

== ENCOUNTER 2018-09-22 06:48 | Emergency (ER) | payer MEDICAID ==
--- NOTE | 2018-09-22 07:24 | ED Physician Documentation ---
PD HPI DYSPNEA - Stated complaint Stated Complaint: SOA - Chief complaint Chief Complaint: Resp - History obtained from History obtained from: Patient - History of Present Illness Timing - onset: How many weeks ago (she has had dyspnea and some cough, with improvement on previously Rx inhaler, but had feeling of dyspnea abruptly this morning. Has been having general anxiety and also has noted marked insomnia for a month. She says she has not slept more than an hour or two in the past several weeks. More notable the past few days.) Timing - onset during: Light activity Timing - details: Gradual onset, Waxing and waning Inciting event(s): URI Worsened by: Coughing Associated symptoms: Cough, Wheezing, Anxiety. No: Fever, Chest pain / discomfort, Bilateral edema Recently seen: Emergency Dept Review of Systems Constitutional: denies: Fever, Chills Nose: denies: Rhinorrhea / runny nose, Congestion Cardiac: denies: Chest pain / pressure Respiratory: reports: Dyspnea, Cough, Wheezing Psychiatric: reports: Anxiety, Insomnia. 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 : None HEENT: None Psych: Depression, Anxiety, Bipolar disorder Musculoskeletal: None Derm: None - Past Surgical History Past Surgical History: Yes /APPLICATIONS PROCESSOR: Tubal ligation - Present Medications Home Medications: Ambulatory Orders Medication Instructions Recorded Confirmed Dexamethasone [Decadron] 4 mg PO DAILY #7 tablet 09/20/18 Lidocaine Viscous 2% [Xylocaine 5 ml PO Q4H PRN #200 ml 09/20/18 Viscous 2%] Ondansetron Odt [Zofran] 4 mg TL Q6H PRN #15 tablet 09/20/18 Phenazopyridine HCl [Pyridium] 200 mg PO TID PRN #20 tablet 09/20/18 Melatonin 3 mg PO QPM #30 tablet 09/22/18 Trazodone HCl 50 mg PO QPM PRN #20 tablet 09/22/18 - Allergies Allergies/Adverse Reactions: Allergies Allergy/AdvReac Type Severity Reaction Status Date / Time hydromorphone [From Dilaudid] Allergy Nausea Verified 09/22/18 06:52 tramadol Allergy Emesis Verified 09/22/18 06:52 opiates Allergy Emesis Uncoded 09/22/18 06:52 - Social History Does the pt smoke?: Yes Smoking Status: Former smoker Does the pt drink ETOH?: No Does the pt have substance abuse?: No - Immunizations Immunizations are current?: No Immunizations: TDAP >10years/unknown - POLST Patient has POLST: No PD ED PE NORMAL - Vitals Vital signs reviewed: Yes - General General: Alert and oriented X 3, Well developed/nourished, Other (seems anxious. Upset/exasperated at not sleeping well. ) - HEENT HEENT: Pharynx benign - Neck Neck: Supple, no meningeal sign, No adenopathy - Cardiac Cardiac: RRR, No murmur - Respiratory Respiratory: Clear bilaterally - Derm Derm: Normal color, Warm and dry - Extremities Extremities: No tenderness to palpate, Normal ROM s pain, No edema, No calf tenderness / cord - Neuro Neuro: Alert and oriented X 3, No motor deficit, Normal speech Results - Vitals Vitals: Vital Signs - 24 hr 09/22/18 09/22/18 06:48 08:31 Temperature 37.1 C Heart Rate 78 70 Respiratory 19 18 Rate Blood Pressure 122/75 119/66 O2 Saturation 99 96 Oxygen O2 Source Room air PD MEDICAL DECISION MAKING - ED course Complexity details: considered differential (her symptoms seem to relate to anxiety and probably the insomnia. Insomnia has been since stopping alcohol use 2 months ago. Worse recently and had gotten Rx steroids recently for wheezing/cough, so that could be worsening the insomnia. However it is helping the breathing. She had had insomnia prior to that as well. ), d/w patient Departure - Departure Disposition: 01 Home, Self Care Clinical Impression: Dyspnea Qualifiers: Dyspnea type: shortness of breath Qualified Code(s): R06.02 - Shortness of breath Insomnia Qualifiers: Insomnia type: unspecified Qualified Code(s): G47.00 - Insomnia, unspecified Condition: Stable Record reviewed to determine appropriate education?: Yes Instructions: ED Insomnia Follow-Up: Lety Hawkins DNP [Primary Care Provider] - Prescriptions: Melatonin 3 mg PO QPM #30 tablet Trazodone HCl 50 mg PO QPM PRN #20 tablet PRN Reason: Insomnia Comments: Continue your current medications. Add melatonin 3 mg nightly to try to help with sleep. Add trazodone if needed for sleep nightly. Follow-up as planned. Discharge Date/Time: 09/22/18 08:34
[2018-09-22 08:32] VITALS: BP 119/66
== END 2018-09-22 08:34 | disposition home or self-care (01) ==
LOC: EDUNIT# → ED 06:48
DX: G47.00 Insomnia, unspecified (principal); F41.9 Anxiety disorder, unspecified; J44.9 Chronic obstructive pulmonary disease, unspecified; Z87.891 Personal history of nicotine dependence
CPT/HCPCS: 99283

== ENCOUNTER 2018-09-27 14:48 | Outpatient (CLI) | payer MEDICAID | END 2018-09-27 14:49 | disposition critical access hospital (66) | LOC: EMS 14:48 | PROVIDERS: ATTEND Surgery | DX: R07.9 Chest pain, unspecified (principal) ==

== ENCOUNTER 2018-09-27 15:04 | Emergency (ER) | payer MEDICAID ==
[2018-09-27] MEDS ORDERED: PANTOPRAZOLE 40 MG VIAL IVP STA (15:26)
[2018-09-27] MEDS ORDERED: PHENobarb/HYOSCY/ATROPINE/SCOP 5 ML UDC PO STA (15:26)
[2018-09-27] MEDS ORDERED: LIDOCAINE VISCOUS 2% 15 ML UDC MM STA (15:26)
[2018-09-27] MEDS ORDERED: SUCRALFATE 1 GM/10 ML UDC PO STA (15:26)
[2018-09-27] MEDS ORDERED: FAMOTIDINE 20 MG TABLET PO STA (15:26)
[2018-09-27] MEDS ORDERED: MAG HYDROX/AL HYDROX/SIMETH 30 ML UDC PO STA (15:26)
[2018-09-27 15:28] LABS: BASOPHILS # (AUTO) 0.1 10^3/uL (0.0-0.1); BASOPHILS % (AUTO) 0.9 %; EOSINOPHILS # (AUTO) 0.1 10^3/uL (0.0-0.7); EOSINOPHILS % (AUTO) 1.1 %; HGB - HEMOGLOBIN 12.7 g/dL (12.0-16.0); LYMPHOCYTES # (AUTO) 2.1 10^3/uL (1.5-3.5); LYMPHOCYTES % (AUTO) 25.8 %; MEAN CORPUSCULAR HEMOGLOBIN 30.6 pg (27.0-31.0); MEAN CORPUSCULAR HGB CONC 34.3 g/dL (32.0-36.0); MEAN CORPUSCULAR VOLUME 89.2 fL (81.0-99.0); MONOCYTES # (AUTO) 0.7 10^3/uL (0.0-1.0); NEUTROPHILS # (AUTO) 5.3 10^3/uL (1.5-6.6); NEUTROPHILS % (AUTO) 64.2 %; PLT - PLATELET COUNT 284 10^3/uL (130-450); RED BLOOD COUNT 4.16 10^6/uL (4.20-5.40); RED CELL DISTRIBUTION WIDTH 12.8 % (12.0-15.0); WHITE BLOOD COUNT 8.3 x10^3/uL (4.8-10.8)
--- NOTE | 2018-09-27 15:33 | ED Physician Documentation ---
History of Present Illness - Stated complaint Stated Complaint: CP - Chief complaint Chief Complaint: Cardiac - History obtained from History obtained from: Patient, EMS - History of Present Illness Timing: Yesterday Pain level max: 8 Pain level now: 7 - Additonal information Additional information: 47-year-old female with constant abdominal epigastric pain radiating to the back and to the chest since yesterday. Worse with eating. Worse with movement. Nothing makes it better. States has had similar symptoms in the past. She is scheduled to see a screen printing loader unloader in October. No history of cardiac disease. Quit using alcohol 2 months ago and quit smoking 1 month ago. Review of Systems Ten Systems: 10 systems reviewed and negative Constitutional: denies: Fever, Chills Ears: denies: Ear pain Nose: denies: Rhinorrhea / runny nose, Congestion Respiratory: denies: Cough GI: denies: Vomiting, Diarrhea, Hematemesis, Bloody / black stool Skin: denies: Rash Musculoskeletal: denies: Neck pain, Back pain Neurologic: denies: Headache PD PAST MEDICAL HISTORY - Past Medical History Cardiovascular: Arrhythmia Respiratory: COPD Neuro: None Endocrine/Autoimmune: None GI: GERD, Diverticulitis CLINICAL NURSE: None : None HEENT: None Psych: Depression, Anxiety, Bipolar disorder Musculoskeletal: None Derm: None - Past Surgical History Past Surgical History: Yes /CLINICAL NURSE: Tubal ligation - Present Medications Home Medications: Ambulatory Orders Medication Instructions Recorded Confirmed Esomeprazole Magnesium [Nexium] 40 mg PO DAILY #30 capsule. 09/27/18 Sucralfate [Carafate] 1 gm PO ACHS #60 tablet 09/27/18 clonazePAM [Clonazepam] 0.5 mg PO PRN PRN 09/27/18 09/27/18 - Allergies Allergies/Adverse Reactions: Allergies Allergy/AdvReac Type Severity Reaction Status Date / Time hydromorphone [From Dilaudid] Allergy Nausea Verified 09/27/18 15:09 tramadol Allergy Emesis Verified 09/27/18 15:09 opiates Allergy Emesis Uncoded 09/27/18 16:05 - Social History Does the pt smoke?: Yes Smoking Status: Current every day smoker Does the pt drink ETOH?: No Does the pt have substance abuse?: No - Immunizations Immunizations are current?: No Immunizations: TDAP >10years/unknown - POLST Patient has POLST: No PD ED PE NORMAL - Vitals Vital signs reviewed: Yes - General General: Alert and oriented X 3, No acute distress - HEENT HEENT: PERRL, Moist mucous membranes - Neck Neck: Supple, no meningeal sign - Cardiac Cardiac: RRR, Strong equal pulses - Respiratory Respiratory: No respiratory distress, Clear bilaterally - Abdomen Abdomen: Soft, Non distended, Other (Tender palpation epigastric without peritoneal signs.) - Back Back: No CVA TTP, No spinal TTP - Derm Derm: Warm and dry - Extremities Extremities: No edema, No calf tenderness / cord - Neuro Neuro: Alert and oriented X 3 - Psych Psych: Other (Appears anxious) Results - Vitals Vitals: Vital Signs - 24 hr 09/27/18 09/27/18 09/27/18 15:07 15:15 16:02 Temperature 37.1 C 36.5 C Heart Rate 89 94 85 Respiratory 20 19 18 Rate Blood Pressure 97/85 H 100/72 121/88 H O2 Saturation 98 96 98 09/27/18 16:29 Temperature Heart Rate 74 Respiratory 17 Rate Blood Pressure 120/78 O2 Saturation 96 Oxygen O2 Source Room air - EKG (time done) 1518 Rate: Rate (enter#) (89) Rhythm: NSR [place]: Normal Intervals: Normal [place] QRS: Normal Ischemia: Normal ST segments - Labs Labs: Laboratory Tests 09/27/18 09/27/18 09/27/18 15:22 15:22 15:22 WBC 8.3 RBC 4.16 L Hgb 12.7 Hct 37.1 MCV 89.2 MCH 30.6 MCHC 34.3 RDW 12.8 Plt Count 284 MPV 8.0 Neut # (Auto) 5.3 Lymph # (Auto) 2.1 [place] # (Auto) 0.7 Eos # (Auto) 0.1 Baso # (Auto) 0.1 Absolute Nucleated RBC 0.00 Nucleated RBC % 0.0 Sodium 132 L Potassium 3.4 L Chloride 100 L Carbon Dioxide 24 Anion Gap 8.0 BUN 11 Creatinine 0.7 Estimated GFR (MDRD) 90 Glucose 107 H Calcium 9.0 Total Bilirubin 0.8 AST 16 ALT 20 Alkaline Phosphatase 47 Troponin I < 0.04 Total Protein 6.7 Albumin 4.2 Globulin 2.5 Albumin/Globulin Ratio 1.7 Lipase 31 Ethyl Alcohol 03/03/19 15:22 WBC RBC Hgb Hct MCV MCH MCHC RDW Plt Count MPV Neut # (Auto) Lymph # (Auto) [place] # (Auto) Eos # (Auto) Baso # (Auto) Absolute Nucleated RBC Nucleated RBC % Sodium Potassium Chloride Carbon Dioxide Anion Gap BUN Creatinine Estimated GFR (MDRD) Glucose Calcium Total Bilirubin AST ALT Alkaline Phosphatase Troponin I Total Protein Albumin Globulin Albumin/Globulin Ratio Lipase Ethyl Alcohol < 5.0 - Rads (name of study) Chest x-ray Radiology: Prelim report reviewed, EMP read contemporaneously, See rad report (No acute disease) PD MEDICAL DECISION MAKING - ED course Complexity details: reviewed results, re-evaluated patient, considered diff erential (No ST elevation [place], no aortic dissection, no PE, no tension pneumothorax, no aortic aneurysm), d/w patient ED course: 47-year-old female presents to the emergency department what sounds like gastroesophageal reflux versus gastritis versus ulcer. Symptoms resolved with GI cocktail. She is well-appearing, nontoxic. Afebrile. No evidence of acute coronary syndrome. Will place on Carafate and PPI for home. Patient counseled regarding signs and symptoms for which I believe and urgent re-evaluation would be necessary. Patient with good understanding of and agreement to plan and is comfortable going home at this time This document was made in part using voice recognition software. While efforts are made to proofread this document, sound alike and grammatical errors may occur. Departure - Departure Disposition: 01 Home, Self Care Clinical Impression: Gastritis Qualifiers: Gastritis type: unspecified gastritis Chronicity: acute Gastritis bleeding: without bleeding Qualified Code(s): K29.00 - Acute gastritis without bleeding Condition: Good Instructions: ED PUD Vs Gastritis Follow-Up: Lety Hawkins DNP [Primary Care Provider] - Within 1 week Prescriptions: Esomeprazole Magnesium [Nexium] 40 mg PO DAILY #30 capsule. Sucralfate [Carafate] 1 gm PO ACHS #60 tablet Comments: Take the medications as prescribed. Return if you worsen. Stop the Advil at home. Follow-up with your doctor for further care. Avoid spicy foods, fried foods, caffeinated beverages. Discharge Date/Time: 09/27/18 16:29
--- NOTE | 2018-09-27 15:36 | XRAY Report ---
Reason: Chest Pain Procedure Date: 09/27/2018 Accession Number: [id number] / [id number] Procedure: XR - Chest 1 View X-Ray CPT Code: 96815 FULL RESULT: EXAM: CHEST RADIOGRAPHY EXAM DATE: 09/27/2018 03:21 PM. CLINICAL HISTORY: Chest Pain. COMPARISON: CHEST 2 VIEW 09/15/2018 3:27 PM. TECHNIQUE: 1 view. FINDINGS: Heart size is normal. Lung volumes are somewhat low. No consolidation, pleural effusion, or pneumothorax visualized. Dextroconvex curvature of the midthoracic spine. IMPRESSION: No acute cardiopulmonary findings. RADIA
[2018-09-27 15:41] LABS: ALBUMIN 4.2 g/dL (3.2-5.5); ALBUMIN/GLOBULIN RATIO 1.7 (1.0-2.2); BILIRUBIN,TOTAL 0.8 mg/dL (0.2-1.0); CREATININE 0.7 mg/dL (0.4-1.0); TOTAL PROTEIN 6.7 g/dL (6.7-8.2)
[2018-09-27 16:30] VITALS: BP 120/78
== END 2018-09-27 16:29 | disposition home or self-care (01) ==
LOC: EDUNIT# → ED 15:04
DX: K29.00 Acute gastritis without bleeding (principal); F17.200 Nicotine dependence, unspecified, uncomplicated
CPT/HCPCS: 36415; 71045; 80053; 80320; 83690; 84484; 85025; 93005; 96374; 99283; A9270

== ENCOUNTER 2018-10-08 14:05 | Outpatient (CLI) | payer MEDICAID | END 2018-10-08 14:06 | disposition critical access hospital (66) | LOC: EMS 14:05 | PROVIDERS: ATTEND Surgery | DX: R07.9 Chest pain, unspecified (principal); M54.9 Dorsalgia, unspecified | CPT/HCPCS: A0425; A0427; A0999 ==

== ENCOUNTER 2018-10-08 14:26 | Emergency (ER) | payer MEDICAID ==
[2018-10-08] MEDS ORDERED: FAMOTIDINE 20 MG TABLET PO STA (14:40)
[2018-10-08] MEDS ORDERED: LIDOCAINE VISCOUS 2% 15 ML UDC MM STA (14:40)
[2018-10-08] MEDS ORDERED: MAG HYDROX/AL HYDROX/SIMETH 30 ML UDC PO STA (14:40)
[2018-10-08] MEDS ORDERED: SUCRALFATE 1 GM/10 ML UDC PO STA (14:40)
[2018-10-08 15:03] LABS: BASOPHILS % (AUTO) 0.6 %; EOSINOPHILS # (AUTO) 0.2 10^3/uL (0.0-0.7); EOSINOPHILS % (AUTO) 2.9 %; HGB - HEMOGLOBIN 12.2 g/dL (12.0-16.0); LYMPHOCYTES # (AUTO) 1.9 10^3/uL (1.5-3.5); MEAN CORPUSCULAR HEMOGLOBIN 30.5 pg (27.0-31.0); MEAN CORPUSCULAR HGB CONC 34.2 g/dL (32.0-36.0); MEAN CORPUSCULAR VOLUME 89.4 fL (81.0-99.0); MEAN PLATELET VOLUME 8.4 fL (7.9-10.8); MONOCYTES # (AUTO) 0.5 10^3/uL (0.0-1.0); MONOCYTES % (AUTO) 7.5 %; NEUTROPHILS # (AUTO) 4.2 10^3/uL (1.5-6.6); PLT - PLATELET COUNT 240 10^3/uL (130-450); RED BLOOD COUNT 3.99 10^6/uL (4.20-5.40); RED CELL DISTRIBUTION WIDTH 12.8 % (12.0-15.0); WHITE BLOOD COUNT 6.9 x10^3/uL (4.8-10.8)
[2018-10-08 15:14] LABS: ALBUMIN 4.4 g/dL (3.2-5.5); ALBUMIN/GLOBULIN RATIO 1.6 (1.0-2.2); BILIRUBIN,TOTAL 0.5 mg/dL (0.2-1.0); CALCIUM 9.4 mg/dL (8.5-10.3); CREATININE 0.7 mg/dL (0.4-1.0); TOTAL PROTEIN 7.1 g/dL (6.7-8.2)
--- NOTE | 2018-10-08 15:19 | XRAY Report ---
Reason: Chest Pain Procedure Date: 10/08/2018 Accession Number: [id number] / [id number] Procedure: XR - Chest 1 View X-Ray CPT Code: 19795 FULL RESULT: EXAM: CHEST RADIOGRAPHY EXAM DATE: 10/08/2018 03:04 PM. CLINICAL HISTORY: Chest Pain. COMPARISON: CHEST 1 VIEW 09/27/2018 3:09 PM. TECHNIQUE: 1 view. FINDINGS: Lungs/Pleura: Hyperexpanded, but clear. No effusion or pneumothorax. Mediastinum: Within exam limitations, the cardiomediastinal contour is normal. Upper lobe vessels not distended. Other: None. IMPRESSION: No acute disease. RADIA
[2018-10-08] MEDS ORDERED: LORazepam 1 MG TABLET PO STA (15:53)
--- NOTE | 2018-10-08 15:56 | ED Physician Documentation ---
PD HPI CHEST PAIN - Stated complaint Stated Complaint: CP - Chief complaint Chief Complaint: Cardiac - History obtained from History obtained from: Patient - History of Present Illness Timing - onset: How many months ago (several months) Timing - onset during: Rest, Eating Timing - duration: Months Timing - details: Gradual onset, Waxing and waning Pain level max: 8 Pain level now: 5 Quality: Indigestion, Other (burning) Location: Substernal, Epigastric, Upper back Radiation: No: Jaw, Neck, Back, Abdominal, Left upper extremity, Right upper extremity Improved by: Antacids Worsened by: Eating Associated symptoms: No: Shortness of air, Diaphoresis, Nausea, Vomiting, Feeling faint / dizzy, General Weakness, Palpitations, Cough Similar symptoms before: Diagnosis (gastritis) Recently seen: Not recently seen Review of Systems Constitutional: denies: Fever, Chills Throat: denies: Sore throat Cardiac: denies: Palpitations Respiratory: denies: Cough : denies: Dysuria Skin: denies: Rash Musculoskeletal: denies: Neck pain, Back pain Neurologic: denies: Headache PD PAST MEDICAL HISTORY - Past Medical History Cardiovascular: Arrhythmia Respiratory: COPD Neuro: None Endocrine/Autoimmune: None GI: GERD, Diverticulitis 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 10/08/18 - Allergies Allergies/Adverse Reactions: Allergies Allergy/AdvReac Type Severity Reaction Status Date / Time hydromorphone [From Dilaudid] Allergy Nausea Verified 10/08/18 14:32 tramadol Allergy Emesis Verified 10/08/18 14:32 opiates Allergy Mild Emesis Uncoded 10/08/18 14:32 - Social History Does the pt smoke?: Yes Smoking Status: Current every day smoker Does the pt drink ETOH?: No Does the pt have substance abuse?: No - Immunizations Immunizations are current?: No Immunizations: TDAP >10years/unknown - POLST Patient has POLST: No PD ED PE NORMAL - Vitals Vital signs reviewed: Yes - General General: Alert and oriented X 3, No acute distress, Well developed/nourished - HEENT HEENT: PERRL, Moist mucous membranes - Neck Neck: Supple, no meningeal sign - Cardiac Cardiac: RRR, Strong equal pulses - Respiratory Respiratory: No respiratory distress, Clear bilaterally - Abdomen Abdomen: Soft, Non tender, Non distended - Derm Derm: Warm and dry - Extremities Extremities: No edema, No calf tenderness / cord - Neuro Neuro: Alert and oriented X 3 - Psych Psych: Normal mood, Normal affect Results - Vitals Vitals: Oxygen O2 Source Room air - EKG (time done) 1432 Rate: Rate (enter#) (82) Rhythm: NSR [place]: Normal Intervals: Normal [place] QRS: Normal Ischemia: Normal ST segments - Labs Labs: Laboratory Tests 10/08/18 10/08/18 10/08/18 14:50 14:50 14:50 WBC 6.9 RBC 3.99 L Hgb 12.2 Hct 35.7 L MCV 89.4 MCH 30.5 MCHC 34.2 RDW 12.8 Plt Count 240 MPV 8.4 Neut # (Auto) 4.2 Lymph # (Auto) 1.9 [place] # (Auto) 0.5 Eos # (Auto) 0.2 Baso # (Auto) 0.0 Absolute Nucleated RBC 0.00 Nucleated RBC % 0.0 Sodium 135 Potassium 3.8 Chloride 104 Carbon Dioxide 22 Anion Gap 9.0 BUN 12 Creatinine 0.7 Estimated GFR (MDRD) 90 Glucose 103 H Calcium 9.4 Total Bilirubin 0.5 AST 18 ALT 21 Alkaline Phosphatase 48 Troponin I < 0.04 Total Protein 7.1 Albumin 4.4 Globulin 2.7 Albumin/Globulin Ratio 1.6 Lipase 31 - Rads (name of study) cxr Radiology: Prelim report reviewed, EMP read contemporaneously, See rad report (no acute disease) PD MEDICAL DECISION MAKING - ED course Complexity details: reviewed results, re-evaluated patient, considered differential (No ST elevation [place], no aortic dissection, no PE, no tension pneumothorax, no aortic aneurysm), d/w patient ED course: 47-year-old female presents to the emergency department with epigastric pain consistent with her prior diagnosis of gastritis. Feels better after GI cocktail. Also having increased anxiety, will prescribe a small amount of Ativan for home. No evidence of acute coronary syndrome, pulmonary embolus. Patient counseled regarding signs and symptoms for which I believe and urgent re-evaluation would be necessary. Patient with good understanding of and agreeme nt to plan and is comfortable going home at this time This document was made in part using voice recognition software. While efforts are made to proofread this document, sound alike and grammatical errors may occur. Departure - Departure Disposition: Home, Self Care Clinical Impression: Anxiety, Atypical chest pain Gastritis Qualifiers: Gastritis type: unspecified gastritis Chronicity: chronic Gastritis bleeding: without bleeding Qualified Code(s): K29.50 - Unspecified chronic gastritis without bleeding Condition: Good Instructions: ED PUD Vs Gastritis Follow-Up: Lety Hawkins DNP [Primary Care Provider] - Within 1 week Prescriptions: Lorazepam [Ativan] 1 mg PO Q8H PRN #7 tablet PRN Reason: Anxiety Omeprazole 20 mg PO DAILY #30 tablet. Comments: Take the medications as prescribed. Return if you worsen. Follow-up with your doctor for further care. Do not drive or operate heavy machinery while taking the Ativan Discharge Date/Time: 10/08/18 16:21
[2018-10-08 16:19] VITALS: BP 111/68
== END 2018-10-08 16:21 | disposition home or self-care (01) ==
LOC: EDUNIT# → ED 14:26
DX: F41.9 Anxiety disorder, unspecified (principal); R07.89 Other chest pain; K29.50 Unspecified chronic gastritis without bleeding; F17.200 Nicotine dependence, unspecified, uncomplicated
CPT/HCPCS: 36415; 71045; 80053; 83690; 84484; 85025; 93005; 99283; 99284; A9270; J8499

== ENCOUNTER 2018-10-12 01:56 | Outpatient (CLI) | payer SELFPAY | END 2018-10-12 01:57 | disposition EMS.NT | LOC: EMS 01:56 | PROVIDERS: ATTEND Surgery | DX: R10.9 Unspecified abdominal pain (principal) ==

== ENCOUNTER 2018-10-14 00:19 | Outpatient (CLI) | payer MEDICAID | END 2018-10-14 00:20 | disposition critical access hospital (66) | LOC: EMS 00:19 | PROVIDERS: ATTEND Surgery | DX: R30.0 Dysuria (principal); R10.9 Unspecified abdominal pain; R35.0 Frequency of micturition; R39.16 Straining to void; M54.9 Dorsalgia, unspecified; K59.00 Constipation, unspecified | CPT/HCPCS: A0425; A0429 ==

== ENCOUNTER 2018-10-14 00:35 | Emergency (ER) | payer MEDICAID ==
--- NOTE | 2018-10-14 01:51 | ED Physician Documentation ---
PD HPI FEMALE - Stated complaint Stated Complaint: PELVIC PAIN - Chief complaint Chief Complaint: Abd Pain - History obtained from History obtained from: Patient - History of Present Illness Timing - onset: How many days ago (2-3 days of lower back pain mainly to the left, associated with left lower abd pain. States has some white mucous with trace blood per rectum 2 days ago. Otherwise has firm stool. No diarrhea. No noted dysuria. States mild vaginal dicharge but that is common for her. Does have history of chronic low back pain but the current pain is different than that, not positional, and is associated with the LLQ abd pain.) Timing - duration: Days (3) Timing - details: Gradual onset, Still present, Waxing and waning Associated symptoms: Abdominal pain, Back pain. No: Fever, Pelvic pain, Genital sore/lesion, Dysuria, Urinary frequency Contributing factors: No: Similar symptoms before: Diagnosis (states the pain is somewhat similar to prior diverticulitis episode several months ago.) Recently seen: Emergency Dept (for chest pains that have improved.) Review of Systems Constitutional: reports: Myalgias. denies: Fever, Chills Nose: denies: Rhinorrhea / runny nose, Congestion Throat: denies: Sore throat Cardiac: denies: Palpitations Respiratory: denies: Cough GI: reports: Abdominal Pain, Nausea, Constipation. denies: Vomiting, Diarrhea : reports: Discharge (mild normal for her). 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 10/08/18 Amox/Clav 875/125 [Augmentin] 1 each PO Q12H #20 tablet 10/14/18 Docusate Sodium 100 mg PO DAILY #30 capsule 10/14/18 Naproxen 375 mg PO BID #20 tablet 10/14/18 Saccharomyces Boulardii [Florastor] 250 mg PO BID #20 capsule 10/14/18 - Allergies Allergies/Adverse Reactions: Allergies Allergy/AdvReac Type Severity Reaction Status Date / Time hydromorphone [From Dilaudid] Allergy Nausea Verified 10/14/18 00:41 tramadol Allergy Emesis Verified 10/14/18 00:41 opiates Allergy Mild Emesis Uncoded 10/14/18 00:41 - Social History Does the pt smoke?: Yes Smoking Status: Current every day smoker Does the pt drink ETOH?: No Does the pt have substance abuse?: No - Immunizations Immunizations are current?: No Immunizations: TDAP >10years/unknown - POLST Patient has POLST: No PD ED PE NORMAL - Vitals Vital signs reviewed: Yes - General General: Alert and oriented X 3, No acute distress, Well developed/nourished - Neck Neck: Supple, no meningeal sign, No adenopathy - Cardiac Cardiac: RRR, No murmur - Respiratory Respiratory: Clear bilaterally - Abdomen Abdomen: Soft, Other (tender LLQ area with some local guarding but no general percussion nor rebound tenderness. ) - Female Female : Deferred - Rectal Rectal: Deferred - Back Back: No CVA TTP - Derm Derm: Normal color, Warm and dry Results - Vitals Vitals: Vital Signs - 24 hr 10/14/18 10/14/18 10/14/18 00:37 01:42 04:12 Temperature 36.3 C L Heart Rate 88 72 71 Respiratory 18 14 15 Rate Blood Pressure 109/79 90/63 118/68 O2 Saturation 97 96 97 Oxygen O2 Source Room air - Labs Labs: Laboratory Tests 10/14/18 10/14/18 10/14/18 02:15 02:30 02:30 WBC 7.1 RBC 3.83 L Hgb 11.8 L Hct 34.3 L MCV 89.5 MCH 30.9 MCHC 34.5 RDW 13.1 Plt Count 279 MPV 7.9 Neut # (Auto) 3.2 Lymph # (Auto) 3.0 [place] # (Auto) 0.6 Eos # (Auto) 0.2 Baso # (Auto) 0.1 Absolute Nucleated RBC 0.00 Nucleated RBC % 0.0 Sodium 140 Potassium 3.8 Chloride 106 Carbon Dioxide 26 Anion Gap 8.0 BUN 16 Creatinine 0.7 Estimated GFR (MDRD) 90 Glucose 107 H Calcium 9.1 Total Bilirubin 0.3 AST 14 ALT 15 Alkaline Phosphatase 47 Total Protein 6.7 Albumin 4.1 Globulin 2.6 Albumin/Globulin Ratio 1.6 Lipase 37 Urine Color YELLOW Urine Clarity CLEAR Urine pH 6.5 Ur Specific [place] 1.020 Urine Protein NEGATIVE Urine Glucose (UA) NEGATIVE Urine Ketones NEGATIVE Urine Occult Blood TRACE-LYSE Urine Nitrite NEGATIVE Urine Bilirubin NEGATIVE Urine Urobilinogen 0.2 (NORMAL) Ur Leukocyte Esterase NEGATIVE Ur Microscopic Review NOT INDICATED Urine Culture Comments NOT INDICATED - Rads (name of study) abd CT Radiology: Prelim report reviewed (sigmoid diverticulitis without complication. ), See rad report PD MEDICAL DECISION MAKING - ED course Complexity details: reviewed results, considered differential (consider intestinal, pyelo, UTI, vaginitis, dermatomal. ), d/w patient Departure - Departure Disposition: 01 Home, Self Care Clinical Impression: Sigmoid diverticulitis Condition: Stable Record reviewed to determine appropriate education?: Yes Instructions: ED Diverticulitis Prescriptions: Amox/Clav 875/125 [Augmentin] 1 each PO Q12H #20 tablet Docusate Sodium 100 mg PO DAILY #30 capsule Naproxen 375 mg PO BID #20 tablet Saccharomyces Boulardii [Florastor] 250 mg PO BID #20 capsule Comments: Stay well-hydrated. Naproxen anti-inflammatory twice daily for 10 days. Take it with food. Augmentin antibiotic twice daily for 10 days as well. You can use some probiotics such as Florastor twice daily to minimize the diarrhea and other effects that can happen with antibiotic. Use docusate stool softener daily to maintain easy stools. Recheck if not improving over the next few days. Discharge Date/Time: 10/14/18 04:22
[2018-10-14] MEDS ORDERED: HYDROcod/ACETAM 5/325 MG TABLET PO STA (02:04)
[2018-10-14 02:28] LABS: BILIRUBIN,URINE NEGATIVE (NEGATIVE); GLUCOSE, URINE (UA) NEGATIVE (NEGATIVE); KETONES,URINE (UA) NEGATIVE (NEGATIVE); LEUKOCYTE ESTERASE, URINE NEGATIVE (NEGATIVE); NITRITE,URINE NEGATIVE (NEGATIVE); OCCULT BLOOD,URINE TRACE-LYSE (NEGATIVE); PH,URINE 6.5 PH (5.0-7.5); PROTEIN,URINE NEGATIVE (NEGATIVE); UROBILINOGEN,URINE 0.2 (NORMAL) E.U./dL (NORMAL)
[2018-10-14 02:30] LABS: CLARITY,URINE CLEAR (CLEAR)
[2018-10-14 02:40] LABS: BASOPHILS # (AUTO) 0.1 10^3/uL (0.0-0.1); BASOPHILS % (AUTO) 0.9 %; EOSINOPHILS # (AUTO) 0.2 10^3/uL (0.0-0.7); EOSINOPHILS % (AUTO) 2.9 %; HGB - HEMOGLOBIN 11.8 g/dL (12.0-16.0); LYMPHOCYTES % (AUTO) 42.2 %; MEAN CORPUSCULAR HEMOGLOBIN 30.9 pg (27.0-31.0); MEAN CORPUSCULAR HGB CONC 34.5 g/dL (32.0-36.0); MEAN CORPUSCULAR VOLUME 89.5 fL (81.0-99.0); MEAN PLATELET VOLUME 7.9 fL (7.9-10.8); MONOCYTES # (AUTO) 0.6 10^3/uL (0.0-1.0); MONOCYTES % (AUTO) 8.5 %; NEUTROPHILS # (AUTO) 3.2 10^3/uL (1.5-6.6); NEUTROPHILS % (AUTO) 45.5 %; PLT - PLATELET COUNT 279 10^3/uL (130-450); RED BLOOD COUNT 3.83 10^6/uL (4.20-5.40); RED CELL DISTRIBUTION WIDTH 13.1 % (12.0-15.0); WHITE BLOOD COUNT 7.1 x10^3/uL (4.8-10.8)
[2018-10-14 02:49] LABS: ALBUMIN 4.1 g/dL (3.2-5.5); ALBUMIN/GLOBULIN RATIO 1.6 (1.0-2.2); BILIRUBIN,TOTAL 0.3 mg/dL (0.2-1.0); CALCIUM 9.1 mg/dL (8.5-10.3); CREATININE 0.7 mg/dL (0.4-1.0); TOTAL PROTEIN 6.7 g/dL (6.7-8.2)
--- NOTE | 2018-10-14 03:06 | CT Report ---
Reason: left flank and lower abd pain for 2-3 days Procedure Date: 10/14/2018 Accession Number: [id number] / [id number] Procedure: CT - Abdomen/Pelvis WO CPT Code: FULL RESULT: EXAM: CT ABDOMEN AND PELVIS (CT KUB) EXAM DATE: 10/14/2018 02:45 AM. CLINICAL HISTORY: Left flank and lower abdominal pain for 2-3 days. COMPARISONS: None. TECHNIQUE: Routine axial helical CT imaging was performed through the abdomen and pelvis without IV contrast. Reconstructions: Coronal and sagittal. In accordance with CT protocol optimization, one or more of the following dose reduction techniques were utilized for this exam: automated exposure control, adjustment of mA and/or KV based on patient size, or use of iterative reconstructive technique. FINDINGS: Lung Bases: Unremarkable. Right Kidney/Ureter: No stones, hydronephrosis, or hydroureter. No perinephric fat stranding. Left Kidney/Ureter: No stones, hydronephrosis, or hydroureter. No perinephric fat stranding. Other Solid Organs: Probable small liver cysts measuring up to 0.9 cm. Spleen, pancreas, and adrenals show no focal abnormalities on this noncontrast examination. Gallbladder/Bile Ducts: Unremarkable. Peritoneal Cavity: No bowel obstruction seen. Moderate stool in the colon. There could be minimal sigmoid diverticulitis. No abscess seen. No free air or free fluid. No lymphadenopathy. Appendix appears normal. Pelvic Organs: Visualized pelvic organs are unremarkable. Vasculature: Mild atherosclerosis. No aortic aneurysm. Other: Scoliosis and degenerative changes in the spine. IMPRESSION: 1. No urolithiasis seen. 2. There could be minimal sigmoid diverticulitis. 3. No other acute inflammatory or obstructive process identified. RADIA
[2018-10-14] MEDS ORDERED: AMOX/CLAV 875 MG/125 MG TABLET PO STA (03:58)
[2018-10-14] MEDS ORDERED: NAPROXEN 250 MG TABLET PO STA (03:58)
[2018-10-14] MEDS ORDERED: DOCUSATE SODIUM 100 MG CAPSULE PO STA (03:58)
[2018-10-14 04:13] VITALS: BP 118/68
== END 2018-10-14 04:22 | disposition home or self-care (01) ==
LOC: EDUNIT# → ED 00:35
DX: K57.32 Diverticulitis of large intestine without perforation or abscess without bleeding (principal); F17.200 Nicotine dependence, unspecified, uncomplicated
CPT/HCPCS: 36415; 74176; 80053; 81003; 83690; 85025; 99283; 99284; A9270; 81001; 87086

== ENCOUNTER 2019-06-10 12:06 | Emergency (ER) | payer MEDICAID ==
--- NOTE | 2019-06-10 12:59 | ED Physician Documentation ---
PD HPI MHE - Stated complaint Stated Complaint: SI/ALCOHOL - Chief complaint Chief Complaint: MHE - History obtained from History obtained from: Patient - History of Present Illness Primary symptom: Suicidal ideation, Depression, Anxiety Timing - onset: How many days ago (She has a history of alcoholism and is been drinking regularly. She is quite depressed about this. She recently in the last several days has been having suicidal ideation without a particular plan. She went to her counselor today on a scheduled visit and was brought over for further evaluation with consideration of acute detox or psychiatric hospitalization. The patient is voluntary for this.) Contributing factors: Substance abuse - ETOH, Off meds (She states she has been prescribed Depakote and recently amitriptyline and naltrexone to help with her depression and alcoholism. She is on Effexor as well. She states she had not been taking the medications of her Depakote and had not started the amitriptyline or naltrexone for concern of side effects or problems from them. Yet she had continued drinking. She states her last drink was last evening.). No: Substance abuse - drugs Similar symptoms before: Diagnosis (alcoholism, anxiety and depression) Recently seen: Clinic ([facility] counselor today) Review of Systems Constitutional: denies: Fever Nose: denies: Rhinorrhea / runny nose, Congestion Throat: denies: Sore throat Cardiac: denies: Chest pain / pressure, Palpitations Respiratory: denies: Dyspnea, Cough GI: reports: Nausea. denies: Abdominal Pain, Vomiting, Diarrhea : denies: Dysuria Musculoskeletal: denies: Neck pain, Back pain Neurologic: denies: Generalized weakness, Near syncope, Altered mental status, Headache, Head injury Psychiatric: reports: Depressed, Suicidal, Anxiety. 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 10/08/18 Amox/Clav 875/125 [Augmentin] 1 each PO Q12H #20 tablet 10/14/18 Docusate Sodium 100 mg PO DAILY #30 capsule 10/14/18 Naproxen 375 mg PO BID #20 tablet 10/14/18 Saccharomyces Boulardii [Florastor] 250 mg PO BID #20 capsule 10/14/18 - Allergies Allergies/Adverse Reactions: Allergies Allergy/AdvReac Type Severity Reaction Status Date / Time hydromorphone [From Dilaudid] Allergy Nausea Verified 10/14/18 00:41 tramadol Allergy Emesis Verified 10/14/18 00:41 opiates Allergy Mild Emesis Uncoded 10/14/18 00:41 - Living Situation Living Arrangement: reports: At home - Social History Does the pt smoke?: Yes Smoking Status: Current every day smoker Does the pt drink ETOH?: Yes Does the pt have substance abuse?: No - Immunizations Immunizations are current?: No Immunizations: TDAP >10years/unknown - POLST Patient has POLST: No PD ED PE NORMAL - Vitals Vital signs reviewed: Yes - General General: Alert and oriented X 3, Well developed/nourished, Other (somewhat anxious. ) - HEENT HEENT: Moist mucous membranes, Pharynx benign - Neck Neck: Supple, no meningeal sign, No adenopathy - Cardiac Cardiac: RRR (mild tachycardic), No murmur - Respiratory Respiratory: Clear bilaterally - Abdomen Abdomen: Soft, Non tender - Derm Derm: Normal color, Warm and dry - Extremities Extremities: No tenderness to palpate, Normal ROM s pain, No edema - Neuro Neuro: Alert and oriented X 3, No motor deficit, Normal speech Eye Opening: Spontaneous Motor: Obeys Commands Verbal: Oriented GCS Score: 15 Results - Vitals Vitals: Vital Signs - 24 hr 06/10/19 06/10/19 06/10/19 12:13 15:53 18:42 Temperature 36.6 C 37.2 C Heart Rate 105 H 90 76 Respiratory 18 18 15 Rate Blood Pressure 148/98 H 124/93 H 111/78 O2 Saturation 96 96 96 06/10/19 20:18 Temperature 36.7 C Heart Rate 72 Respiratory 17 Rate Blood Pressure 113/75 O2 Saturation 96 Oxygen O2 Source Room air - Labs Labs: Laboratory Tests 06/10/19 06/10/19 06/10/19 13:05 13:05 13:35 WBC 10.2 RBC 4.86 Hgb 15.7 Hct 46.9 MCV 96.5 MCH 32.3 H MCHC 33.5 RDW 13.3 Plt Count 353 MPV 9.6 Neut # (Auto) 7.2 H Lymph # (Auto) 2.3 [place] # (Auto) 0.6 Eos # (Auto) 0.0 Baso # (Auto) 0.1 Absolute Nucleated RBC 0.00 Nucleated RBC % 0.0 Sodium Potassium Chloride Carbon Dioxide Anion Gap BUN Creatinine Estimated GFR (MDRD) Glucose Calcium Magnesium Total Bilirubin AST ALT Alkaline Phosphatase Total Protein Albumin Globulin Albumin/Globulin Ratio Lipase TSH Urine Color STRAW Urine Clarity SL. CLOUDY Urine pH 5.5 Ur Specific [place] <=1.005 <=1.005 Urine Protein TRACE Urine Glucose (UA) NEGATIVE Urine Ketones NEGATIVE Urine Occult Blood LARGE H Urine Nitrite NEGATIVE Urine Bilirubin NEGATIVE Urine Urobilinogen 0.2 (NORMAL) Ur Leukocyte Esterase MODERATE H Urine RBC 11-25 H Urine WBC 11-25 H Ur Squamous Epith Cells MOD Squamous H Urine Bacteria Few Ur Microscopic Review INDICATED Urine Culture Comments NOT INDICATED Urine HCG, Qual NEGATIVE Salicylates Urine Opiates Screen NEGATIVE Ur Oxycodone Screen NEGATIVE Urine Methadone Screen NEGATIVE Ur Propoxyphene Screen NEGATIVE Acetaminophen Ur Barbiturates Screen NEGATIVE Ur Tricyclics Screen NEGATIVE Ur Phencyclidine Scrn NEGATIVE Ur Amphetamine Screen NEGATIVE U Methamphetamines Scrn NEGATIVE U Benzodiazepines Scrn NEGATIVE Urine Cocaine Screen NEGATIVE U Cannabinoids Screen POSITIVE H Ethyl Alcohol 06/10/19 06/10/19 13:35 13:35 WBC RBC Hgb Hct MCV MCH MCHC RDW Plt Count MPV Neut # (Auto) Lymph # (Auto) [place] # (Auto) Eos # (Auto) Baso # (Auto) Absolute Nucleated RBC Nucleated RBC % Sodium 137 Potassium 3.8 Chloride 100 L Carbon Dioxide 22 Anion Gap 15.0 H BUN 8 Creatinine 0.8 Estimated GFR (MDRD) 77 L Glucose 99 Calcium 9.7 Magnesium 2.6 Total Bilirubin 0.5 AST 22 ALT 22 Alkaline Phosphatase 75 Total Protein 8.3 H Albumin 4.8 Globulin 3.5 Albumin/Globulin Ratio 1.4 Lipase 26 TSH 1.62 Urine Color Urine Clarity Urine pH Ur Specific [place] Urine Protein Urine Glucose (UA) Urine Ketones Urine Occult Blood Urine Nitrite Urine Bilirubin Urine Urobilinogen Ur Leukocyte Esterase Urine RBC Urine WBC Ur Squamous Epith Cells Urine Bacteria Ur Microscopic Review Urine Culture Comments Urine HCG, Qual Salicylates < 6.0 Urine Opiates Screen Ur Oxycodone Screen Urine Methadone Screen Ur Propoxyphene Screen Acetaminophen < 10 L Ur Barbiturates Screen Ur Tricyclics Screen Ur Phencyclidine Scrn Ur Amphetamine Screen U Methamphetamines Scrn U Benzodiazepines Scrn Urine Cocaine Screen U Cannabinoids Screen Ethyl Alcohol 21.0 PD MEDICAL DECISION MAKING - ED course Complexity details: reviewed results, considered differential (Patient with alcoholism and is depressed about continued use and also feeling more recently suicidal without a particular plan. She is here with her counselor that she saw today. She is voluntary and wishing for hospitalization for treatment acutely. We will get social work involved.), d/w patient, d/w [employer] consultant (Social Work) Departure - Departure Disposition: 65 Psych Hosp/Unit DC/Xfer Clinical Impression: Alcoholism, Suicidal ideation Depression Qualifiers: Depression Type: other depression Qualified Code(s): F32.89 - Other specified depressive episodes Condition: Stable
[2019-06-10] MEDS ORDERED: LORazepam 1 MG TABLET PO STA ×2 (13:30→21:20)
[2019-06-10 13:40] LABS: BASOPHILS # (AUTO) 0.1 10^3/uL (0.0-0.1); BASOPHILS % (AUTO) 0.6 %; EOSINOPHILS % (AUTO) 0.4 %; HGB - HEMOGLOBIN 15.7 g/dL (12.0-16.0); LYMPHOCYTES # (AUTO) 2.3 10^3/uL (1.5-3.5); LYMPHOCYTES % (AUTO) 22.9 %; MEAN CORPUSCULAR HEMOGLOBIN 32.3 pg (27.0-31.0); MEAN CORPUSCULAR HGB CONC 33.5 g/dL (32.0-36.0); MEAN CORPUSCULAR VOLUME 96.5 fL (81.0-99.0); MEAN PLATELET VOLUME 9.6 fL (7.9-10.8); MONOCYTES # (AUTO) 0.6 10^3/uL (0.0-1.0); MONOCYTES % (AUTO) 5.8 %; NEUTROPHILS # (AUTO) 7.2 10^3/uL (1.5-6.6); NEUTROPHILS % (AUTO) 69.8 %; PLT - PLATELET COUNT 353 10^3/uL (130-450); RED BLOOD COUNT 4.86 10^6/uL (4.20-5.40); RED CELL DISTRIBUTION WIDTH 13.3 % (12.0-15.0); WHITE BLOOD COUNT 10.2 x10^3/uL (4.8-10.8)
[2019-06-10 13:46] LABS: MUDS CUTOFF CONCENTRATIONS CUTOFF CONC BELOW:
[2019-06-10 13:51] LABS: BILIRUBIN,URINE NEGATIVE (NEGATIVE); GLUCOSE, URINE (UA) NEGATIVE (NEGATIVE); KETONES,URINE (UA) NEGATIVE (NEGATIVE); LEUKOCYTE ESTERASE, URINE MODERATE (NEGATIVE); NITRITE,URINE NEGATIVE (NEGATIVE); OCCULT BLOOD,URINE LARGE (NEGATIVE); PH,URINE 5.5 PH (5.0-7.5); PROTEIN,URINE TRACE mg/dL (NEGATIVE); UROBILINOGEN,URINE 0.2 (NORMAL) E.U./dL (NORMAL)
[2019-06-10 13:52] LABS: CLARITY,URINE SL. CLOUDY (CLEAR)
[2019-06-10 14:02] LABS: ACETAMINOPHEN < 10 ug/mL (10-30); ALBUMIN 4.8 g/dL (3.2-5.5); ALBUMIN/GLOBULIN RATIO 1.4 (1.0-2.2); ALKALINE PHOSPHATASE 75 IU/L (42-121); ALT ALANINE AMINOTRANSFERASE 22 IU/L (10-60); AST ASPARTATE AMINOTRANSFERASE 22 IU/L (10-42); BILIRUBIN,TOTAL 0.5 mg/dL (0.2-1.0); BUN - BLOOD UREA NITROGEN 8 mg/dL (6-20); CALCIUM 9.7 mg/dL (8.5-10.3); CARBON DIOXIDE - CO2 22 mmol/L (21-32); CHLORIDE 100 mmol/L (101-111); CREATININE 0.8 mg/dL (0.4-1.0); GFR - MDRD 77 (>89); GLUCOSE 99 mg/dL (70-100); LIPASE 26 U/L (22-51); MAGNESIUM 2.6 mg/dL (1.7-2.8); SALICYLATE < 6.0 mg/dL; SODIUM 137 mmol/L (135-145); TOTAL PROTEIN 8.3 g/dL (6.7-8.2)
[2019-06-10 14:04] LABS: BACTERIA,URINE Few /HPF (None Seen); SQUAMOUS EPITHELIAL CELL,UR MOD Squamous (<= Few)
[2019-06-10 14:11] LABS: AMPHETAMINE SCREEN,URINE NEGATIVE (NEGATIVE); BENZODIAZEPINES SCREEN, URINE NEGATIVE (NEGATIVE); COCAINE SCREEN URINE NEGATIVE (NEGATIVE); METHADONE SCREEN, URINE NEGATIVE (NEGATIVE); METHAMPHETAMINES SCREEN, URINE NEGATIVE (NEGATIVE); OPIATE SCREEN, URINE NEGATIVE (NEGATIVE); OXYCODONE SCREEN, URINE NEGATIVE (NEGATIVE); PROPOXYPHENE SCREEN, URINE NEGATIVE (NEGATIVE); TRICYCLIC ANTIDEPRESSANT,URINE NEGATIVE (NEGATIVE)
[2019-06-10 20:18] VITALS: BP 113/75
[2019-06-10 21:40] LABS: HCG UR QUAL NEGATIVE
== END 2019-06-10 22:01 ==
LOC: ED 12:06
DX: F32.89 Other specified depressive episodes (principal); R45.851 Suicidal ideations; F41.9 Anxiety disorder, unspecified; F10.20 Alcohol dependence, uncomplicated; Z91.14 Patient's other noncompliance with medication regimen; F17.200 Nicotine dependence, unspecified, uncomplicated
CPT/HCPCS: 36415; 80053; 80306; 80307; 80320; 80329; 81001; 81025; 83690; 83735; 84443; 85025; 99283; 99285; J8499; 81003; 87086

== ENCOUNTER 2019-07-19 07:24 | Emergency (ER) | payer MEDICAID ==
[2019-07-19] MEDS ORDERED: LORazepam 1 MG TABLET PO STA ×2 (07:54→09:57)
--- NOTE | 2019-07-19 07:55 | ED Physician Documentation ---
PD HPI MHE - Stated complaint Stated Complaint: MHE/ETOH - Chief complaint Chief Complaint: MHE - History obtained from History obtained from: Patient - History of Present Illness Primary symptom: Anxiety, Other (wanting to stop drinking alcohol and here for help in getting placed at detox/rehab. Has been at [facility] in past few weeks, and discharged om current med regimen. Has taken meds until last several days/week, as was back to drinking alcohol and did not want both.). No: Suicidal ideation, Suicide attempt Timing - onset: How many days ago (several days to a week, was drinking again and wanting to stop/ get into rehab. She is on waiting list for bed in [facility], but is likely a couple of weeks wait.) Contributing factors: Money, Substance abuse - ETOH. No: Substance abuse - drugs Similar symptoms before: Diagnosis (anxiety, depression, alcohol abuse.) Review of Systems Constitutional: denies: Fever, Chills, Myalgias Nose: denies: Rhinorrhea / runny nose, Congestion Throat: denies: Sore throat Respiratory: denies: Cough GI: denies: Abdominal Pain, Nausea, Vomiting, Diarrhea, Bloody / black stool Neurologic: reports: Generalized weakness. 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 10/08/18 Amox/Clav 875/125 [Augmentin] 1 each PO Q12H #20 tablet 10/14/18 Docusate Sodium 100 mg PO DAILY #30 capsule 10/14/18 Naproxen 375 mg PO BID #20 tablet 10/14/18 Saccharomyces Boulardii [Florastor] 250 mg PO BID #20 capsule 10/14/18 LORazepam [Ativan] 1 mg PO TID PRN #25 tablet 07/19/19 - Allergies Allergies/Adverse Reactions: Allergies Allergy/AdvReac Type Severity Reaction Status Date / Time hydromorphone [From Dilaudid] Allergy Nausea Verified 07/19/19 07:34 tramadol Allergy Emesis Verified 07/19/19 07:34 opiates Allergy Mild Emesis Uncoded 07/19/19 07:34 - Social History Does the pt smoke?: Yes Smoking Status: Current every day smoker Does the pt drink ETOH?: Yes Does the pt have substance abuse?: No - Immunizations Immunizations are current?: No Immunizations: TDAP >10years/unknown - POLST Patient has POLST: No PD ED PE NORMAL - Vitals Vital signs reviewed: Yes - General General: Alert and oriented X 3, Well developed/nourished - HEENT HEENT: Ears normal, Moist mucous membranes, Pharynx benign - Neck Neck: Supple, no meningeal sign - Cardiac Cardiac: No murmur. No: RRR Results - Vitals Vitals: Vital Signs - 24 hr 07/19/19 07/19/19 07/19/19 07:29 10:00 14:17 Temperature 36.5 C 36.8 C Heart Rate 110 H 92 104 H Respiratory 20 20 20 Rate Blood Pressure 128/78 111/72 127/87 H O2 Saturation 99 98 98 Oxygen O2 Source Room air - Labs Labs: Laboratory Tests 07/19/19 07/19/19 07/19/19 08:07 08:07 08:07 WBC 10.1 RBC 4.72 Hgb 15.5 Hct 44.9 MCV 95.1 MCH 32.8 H MCHC 34.5 RDW 12.8 Plt Count 263 MPV 10.0 Neut # (Auto) 7.4 H Lymph # (Auto) 1.9 [place] # (Auto) 0.8 Eos # (Auto) 0.0 Baso # (Auto) 0.1 Absolute Nucleated RBC 0.00 Nucleated RBC % 0.0 Sodium 135 Potassium 3.7 Chloride 100 L Carbon Dioxide 21 Anion Gap 14.0 H BUN 8 Creatinine 0.7 Estimated GFR (MDRD) 90 Glucose 109 H Calcium 9.5 Total Bilirubin 0.7 AST 25 ALT 32 Alkaline Phosphatase 71 Total Protein 8.1 Albumin 5.1 Globulin 3.0 Albumin/Globulin Ratio 1.7 Lipase 27 TSH 1.66 Urine Color Urine Clarity Urine pH Ur Specific [place] Urine Protein Urine Glucose (UA) Urine Ketones Urine Occult Blood Urine Nitrite Urine Bilirubin Urine Urobilinogen Ur Leukocyte Esterase Urine RBC Urine WBC Ur Squamous Epith Cells Urine Bacteria Ur Microscopic Review Urine Culture Comments Salicylates < 6.0 Urine Opiates Screen Ur Oxycodone Screen Urine Methadone Screen Ur Propoxyphene Screen Acetaminophen < 10 L Ur Barbiturates Screen Ur Tricyclics Screen Ur Phencyclidine Scrn Ur Amphetamine Screen U Methamphetamines Scrn U Benzodiazepines Scrn Urine Cocaine Screen U Cannabinoids Screen Ethyl Alcohol 18.3 07/19/19 09:00 WBC RBC Hgb Hct MCV MCH MCHC RDW Plt Count MPV Neut # (Auto) Lymph # (Auto) [place] # (Auto) Eos # (Auto) Baso # (Auto) Absolute Nucleated RBC Nucleated RBC % Sodium Potassium Chloride Carbon Dioxide Anion Gap BUN Creatinine Estimated GFR (MDRD) Glucose Calcium Total Bilirubin AST ALT Alkaline Phosphatase Total Protein Albumin Globulin Albumin/Globulin Ratio Lipase TSH Urine Color YELLOW Urine Clarity CLEAR Urine pH 5.5 Ur Specific [place] 1.010 Urine Protein NEGATIVE Urine Glucose (UA) NEGATIVE Urine Ketones TRACE Urine Occult Blood MODERATE H Urine Nitrite NEGATIVE Urine Bilirubin NEGATIVE Urine Urobilinogen 0.2 (NORMAL) Ur Leukocyte Esterase NEGATIVE Urine RBC 0-5 Urine WBC 0-3 Ur Squamous Epith Cells MOD Squamous H Urine Bacteria Few Ur Microscopic Review INDICATED Urine Culture Comments NOT INDICATED Salicylates Urine Opiates Screen NEGATIVE Ur Oxycodone Screen NEGATIVE Urine Methadone Screen NEGATIVE Ur Propoxyphene Screen NEGATIVE Acetaminophen Ur Barbiturates Screen NEGATIVE Ur Tricyclics Screen NEGATIVE Ur Phencyclidine Scrn NEGATIVE Ur Amphetamine Screen NEGATIVE U Methamphetamines Scrn NEGATIVE U Benzodiazepines Scrn NEGATIVE Urine Cocaine Screen NEGATIVE U Cannabinoids Screen POSITIVE H Ethyl Alcohol PD MEDICAL DECISION MAKING - ED course Complexity details: reviewed results (head CT - no acute), considered differential (alcoholism with wanting rehab. Had not taken her meds for few days and self-medicated with alcohol.), d/w patient, d/w sourcing consultant (Social Work talked with patient and looked into beds available, but none available today.) Departure - Departure Disposition: 01 Home, Self Care Clinical Impression: Anxiety, Alcoholism Condition: Stable Record reviewed to determine appropriate education?: Yes Follow-Up: Deanna Lamar ARNP [Primary Care Provider] - Prescriptions: LORazepam [Ativan] 1 mg PO TID PRN #25 tablet PRN Reason: Alcohol Withdrawal Comments: Stay well-hydrated. Avoid alcohol. Use Ativan if needed for alcohol withdrawal and anxiety. Follow-up with the alcohol treatment programs with the numbers provided by the social work. Hopefully the [facility] will get a bed free soon. Discharge Date/Time: 07/19/19 14:38
[2019-07-19 08:13] LABS: BASOPHILS # (AUTO) 0.1 10^3/uL (0.0-0.1); BASOPHILS % (AUTO) 0.5 %; EOSINOPHILS % (AUTO) 0.4 %; HGB - HEMOGLOBIN 15.5 g/dL (12.0-16.0); LYMPHOCYTES # (AUTO) 1.9 10^3/uL (1.5-3.5); LYMPHOCYTES % (AUTO) 18.4 %; MEAN CORPUSCULAR HEMOGLOBIN 32.8 pg (27.0-31.0); MEAN CORPUSCULAR HGB CONC 34.5 g/dL (32.0-36.0); MEAN CORPUSCULAR VOLUME 95.1 fL (81.0-99.0); MONOCYTES # (AUTO) 0.8 10^3/uL (0.0-1.0); MONOCYTES % (AUTO) 7.5 %; NEUTROPHILS # (AUTO) 7.4 10^3/uL (1.5-6.6); NEUTROPHILS % (AUTO) 72.8 %; PLT - PLATELET COUNT 263 10^3/uL (130-450); RED BLOOD COUNT 4.72 10^6/uL (4.20-5.40); RED CELL DISTRIBUTION WIDTH 12.8 % (12.0-15.0); WHITE BLOOD COUNT 10.1 x10^3/uL (4.8-10.8)
[2019-07-19 08:28] LABS: ACETAMINOPHEN < 10 ug/mL (10-30); ALBUMIN 5.1 g/dL (3.2-5.5); ALBUMIN/GLOBULIN RATIO 1.7 (1.0-2.2); ALKALINE PHOSPHATASE 71 IU/L (42-121); ALT ALANINE AMINOTRANSFERASE 32 IU/L (10-60); AST ASPARTATE AMINOTRANSFERASE 25 IU/L (10-42); BILIRUBIN,TOTAL 0.7 mg/dL (0.2-1.0); BUN - BLOOD UREA NITROGEN 8 mg/dL (6-20); CALCIUM 9.5 mg/dL (8.5-10.3); CARBON DIOXIDE - CO2 21 mmol/L (21-32); CHLORIDE 100 mmol/L (101-111); CREATININE 0.7 mg/dL (0.4-1.0); GFR - MDRD 90 (>89); GLUCOSE 109 mg/dL (70-100); LIPASE 27 U/L (22-51); SALICYLATE < 6.0 mg/dL; SODIUM 135 mmol/L (135-145); TOTAL PROTEIN 8.1 g/dL (6.7-8.2)
[2019-07-19 09:11] LABS: MUDS CUTOFF CONCENTRATIONS CUTOFF CONC BELOW:
[2019-07-19 09:14] LABS: BILIRUBIN,URINE NEGATIVE (NEGATIVE); GLUCOSE, URINE (UA) NEGATIVE (NEGATIVE); KETONES,URINE (UA) TRACE mg/dL (NEGATIVE); LEUKOCYTE ESTERASE, URINE NEGATIVE (NEGATIVE); NITRITE,URINE NEGATIVE (NEGATIVE); OCCULT BLOOD,URINE MODERATE (NEGATIVE); PH,URINE 5.5 PH (5.0-7.5); PROTEIN,URINE NEGATIVE (NEGATIVE); UROBILINOGEN,URINE 0.2 (NORMAL) E.U./dL (NORMAL)
[2019-07-19 09:25] LABS: CLARITY,URINE CLEAR (CLEAR)
[2019-07-19 09:26] LABS: AMPHETAMINE SCREEN,URINE NEGATIVE (NEGATIVE); BENZODIAZEPINES SCREEN, URINE NEGATIVE (NEGATIVE); COCAINE SCREEN URINE NEGATIVE (NEGATIVE); METHADONE SCREEN, URINE NEGATIVE (NEGATIVE); METHAMPHETAMINES SCREEN, URINE NEGATIVE (NEGATIVE); OPIATE SCREEN, URINE NEGATIVE (NEGATIVE); OXYCODONE SCREEN, URINE NEGATIVE (NEGATIVE); PROPOXYPHENE SCREEN, URINE NEGATIVE (NEGATIVE); TRICYCLIC ANTIDEPRESSANT,URINE NEGATIVE (NEGATIVE)
[2019-07-19 09:36] LABS: BACTERIA,URINE Few /HPF (None Seen); RBC,URINE 0-5 /HPF (0-5); SQUAMOUS EPITHELIAL CELL,UR MOD Squamous (<= Few)
[2019-07-19 14:17] VITALS: BP 127/87
== END 2019-07-19 14:38 | disposition home or self-care (01) ==
LOC: ED 07:24
DX: F10.20 Alcohol dependence, uncomplicated (principal); R53.1 Weakness; F41.9 Anxiety disorder, unspecified; F32.9 Major depressive disorder, single episode, unspecified; F17.200 Nicotine dependence, unspecified, uncomplicated
CPT/HCPCS: 36415; 80053; 80306; 80307; 80320; 80329; 81001; 83690; 84443; 85025; 99283; J8499; 81003; 87086

== ENCOUNTER 2019-07-29 07:24 | Outpatient (CLI) | payer MEDICAID | END 2019-07-29 07:25 | disposition critical access hospital (66) | LOC: EMS 07:24 | PROVIDERS: ATTEND Surgery | DX: R07.89 Other chest pain (principal); R25.8 Other abnormal involuntary movements; F41.0 Panic disorder [episodic paroxysmal anxiety] | CPT/HCPCS: A0425; A0429 ==

== ENCOUNTER 2019-07-29 07:41 | Emergency (ER) | payer MEDICAID ==
--- NOTE | 2019-07-29 07:44 | ED Physician Documentation ---
PD HPI MHE - Stated complaint Stated Complaint: PANIC ATTACK - History obtained from History obtained from: Patient, EMS - History of Present Illness Primary symptom: Depression, Anxiety. No: Suicidal ideation Timing - onset: How many days ago (couple) Contributing factors: Substance abuse - ETOH, Other (She has been waiting to get into a alcohol treatment program. She is scheduled to go into on the in [place]. She has been feeling anxious intermittently and had been using Ativan with improvement. However she is been using alcohol intermittently and started using some yesterday and drink last night so was concerned about using the Ativan with it. She had presented similarly a couple of times in the past with concern for using the Ativan along with alcohol but feeling very anxious without it. She presents that way today. She denies any suicidal ideation. She is very anxious and having some pressured speech.) Similar symptoms before: Diagnosis (She does have history of depression in the past with some manic type episodes but not treated as bipolar. She does have history of anxiety and also alcoholism and alcohol withdrawal.) Recently seen: Emergency Dept (Similar presentations to the emergency department a few times recently. She had been assessed by social work the last visit to the ER but they were unable to get her more expedited into rehab. She previously had also been in psychiatric facility but feels that her main issue now is the alcohol treatment.) Review of Systems Constitutional: reports: Myalgias. denies: Fever, Chills Nose: denies: Rhinorrhea / runny nose, Congestion Throat: denies: Sore throat Respiratory: denies: Cough GI: reports: Nausea. denies: Abdominal Pain, Vomiting, Diarrhea Neurologic: reports: Generalized weakness, Headache. denies: Focal weakness, Numbness, Altered mental status, Head injury Psychiatric: reports: Depressed, Anxiety, Insomnia. 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 10/08/18 Amox/Clav 875/125 [Augmentin] 1 each PO Q12H #20 tablet 10/14/18 Docusate Sodium 100 mg PO DAILY #30 capsule 10/14/18 Naproxen 375 mg PO BID #20 tablet 10/14/18 Saccharomyces Boulardii [Florastor] 250 mg PO BID #20 capsule 10/14/18 LORazepam [Ativan] 1 mg PO TID PRN #25 tablet 07/19/19 traZODone [Desyrel] 50 mg PO HS #20 tablet 07/29/19 - Allergies Allergies/Adverse Reactions: Allergies Allergy/AdvReac Type Severity Reaction Status Date / Time hydromorphone [From Dilaudid] Allergy Nausea Verified 07/19/19 07:34 tramadol Allergy Emesis Verified 07/19/19 07:34 opiates Allergy Mild Emesis Uncoded 07/19/19 07:34 - Social History Does the pt smoke?: Yes Smoking Status: Current every day smoker Does the pt drink ETOH?: Yes Does the pt have substance abuse?: No - Immunizations Immunizations are current?: No Immunizations: TDAP >10years/unknown - POLST Patient has POLST: No PD ED PE NORMAL - Vitals Vital signs reviewed: Yes - General General: Alert and oriented X 3, Well developed/nourished, Other (Anxious and having some pressured speech. She is not tangential but stays focused on the topic of feeling she needs alcohol treatment sooner than the ninth when she has her intake.) - HEENT HEENT: Pharynx benign - Neck Neck: Supple, no meningeal sign, No adenopathy - Cardiac Cardiac: RRR, No murmur - Respiratory Respiratory: Clear bilaterally - Abdomen Abdomen: Soft, Non tender - Derm Derm: Normal color, Warm and dry - Neuro Neuro: Alert and oriented X 3, No motor deficit, Normal speech - Psych Psych: Normal affect (anxious) Results - Vitals Vitals: Vital Signs - 24 hr 07/29/19 07/29/19 07:41 08:12 Temperature 36.7 C Heart Rate 97 88 Respiratory 20 16 Rate Blood Pressure 122/89 H 125/87 H O2 Saturation 100 97 Oxygen O2 Source Room air PD MEDICAL DECISION MAKING - ED course Complexity details: considered differential (Moderately improved with Ativan. She has been having general anxiety and also trouble sleeping. We talked about trying a different medicine such as trazodone at night for sleep and see if it helps with anxiety during the day as well. She should not drink alcohol and use the Ativan instead. She states she still has prescription left and did not need a refill.), d/w patient Departure - Departure Disposition: 01 Home, Self Care Clinical Impression: Anxiety, Alcoholism Insomnia Qualifiers: Insomnia type: unspecified Qualified Code(s): G47.00 - Insomnia, unspecified Condition: Stable Record reviewed to determine appropriate education?: Yes Prescriptions: traZODone [Desyrel] 50 mg PO HS #20 tablet Comments: Avoid alcohol. Use the previously prescribed Ativan 2-3 times a day as needed for anxiety in the short-term and try to taper down after a week or so once you are in the rehab program. Start trazodone 50 mg nightly to help with sleep and see if that helps with anxiety throughout the day as well. Enter the alcohol treatment program on the as planned. Call your counselor today to talk with your counselor. Discharge Date/Time: 07/29/19 09:50
[2019-07-29] MEDS ORDERED: LORazepam 2 MG/ML VIAL IM STA (07:53)
[2019-07-29 08:12] VITALS: BP 125/87
[2019-07-29] MEDS ORDERED: LORazepam 1 MG TABLET PO STA (09:00)
== END 2019-07-29 09:50 | disposition home or self-care (01) ==
LOC: EDUNIT# → ED 07:41
DX: F41.9 Anxiety disorder, unspecified (principal); F10.20 Alcohol dependence, uncomplicated; G47.00 Insomnia, unspecified; F17.200 Nicotine dependence, unspecified, uncomplicated
CPT/HCPCS: 96372; 99283; 99284; J2060; J8499

== ENCOUNTER 2019-11-22 02:28 | Outpatient (CLI) | payer MEDICAID | END 2019-11-22 02:29 | disposition critical access hospital (66) | LOC: EMS 02:28 | PROVIDERS: ATTEND Surgery | DX: R07.9 Chest pain, unspecified (principal) | CPT/HCPCS: A0425; A0427; A0999 ==

== ENCOUNTER 2019-11-22 02:43 | Emergency (ER) | payer MEDICAID ==
--- NOTE | 2019-11-22 02:42 | ED Physician Documentation ---
History of Present Illness - Stated complaint Stated Complaint: CP - History obtained from History obtained from: Patient (The patient is a 48-year-old female who arrives via EMS with a chief complaint chest pain after she used drugs yesterday. She thinks that she either did meth or cocaine. She denies any history of HI or stroke or pulmonary embolism or DVT. She denies any syncopal episodes.) Review of Systems Constitutional: reports: Reviewed and negative Eyes: reports: Reviewed and negative Ears: reports: Reviewed and negative Nose: reports: Reviewed and negative Throat: reports: Reviewed and negative Cardiac: reports: Chest pain / pressure Respiratory: reports: Reviewed and negative GI: reports: Reviewed and negative : reports: Reviewed and negative Skin: reports: Reviewed and negative Musculoskeletal: reports: Reviewed and negative Neurologic: reports: Reviewed and negative Psychiatric: reports: Reviewed and negative Endocrine: reports: Reviewed and negative Immunocompromised: reports: Reviewed and negative PD PAST MEDICAL HISTORY - Present Medications Home Medications: Ambulatory Orders Medication Instructions Recorded Confirmed Docusate Sodium 100 mg PO DAILY #30 capsule 10/14/18 11/22/19 LORazepam [Ativan] 1 mg PO TID PRN #25 tablet 07/19/19 11/22/19 traZODone [Desyrel] 50 mg PO HS #20 tablet 07/29/19 11/22/19 Sertraline [Zoloft] 50 mg PO DAILY 11/22/19 11/22/19 - Allergies Allergies/Adverse Reactions: Allergies Allergy/AdvReac Type Severity Reaction Status Date / Time hydromorphone [From Dilaudid] Allergy Nausea Verified 11/22/19 02:53 tramadol Allergy Emesis Verified 11/22/19 02:53 opiates Allergy Mild Emesis Uncoded 11/22/19 02:53 PD ED PE NORMAL - Vitals Vital signs reviewed: Yes - General General: Alert and oriented X 3, No acute distress, Well developed/nourished - HEENT HEENT: Atraumatic, PERRL - Neck Neck: Supple, no meningeal sign - Cardiac Cardiac: RRR, No murmur, Strong equal pulses - Respiratory Respiratory: No respiratory distress, Clear bilaterally - Abdomen Abdomen: Normal bowel sounds, Soft, Non tender, Non distended, No organomegaly - Back Back: No CVA TTP, No spinal TTP - Derm Derm: Normal color, Warm and dry, No rash - Extremities Extremities: No deformity, No tenderness to palpate, Normal ROM s pain, No edema, No calf tenderness / cord - Neuro Neuro: Alert and oriented X 3, lace pinner 2-12 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, No motor deficit, No sensory deficit, Normal speech - Psych Psych: Normal mood, Normal affect Results - Vitals Vitals: Vital Signs - 24 hr 11/22/19 11/22/19 11/22/19 02:43 03:08 03:18 Temperature 36.8 C Heart Rate 86 89 94 Respiratory 16 14 23 Rate Blood Pressure 128/74 108/77 117/67 O2 Saturation 100 98 96 11/22/19 11/22/19 11/22/19 03:28 03:41 04:33 Temperature Heart Rate 91 81 88 Respiratory 15 15 13 Rate Blood Pressure 119/71 101/69 100/75 O2 Saturation 98 99 100 11/22/19 05:02 Temperature 36.8 C Heart Rate 74 Respiratory 16 Rate Blood Pressure 110/67 O2 Saturation 100 Oxygen O2 Source Room air - EKG (time done) 02:50 Rate: Other (no stemi) - Labs Labs: Laboratory Tests 11/22/19 11/22/19 11/22/19 03:00 03:00 03:00 WBC 7.8 RBC 4.19 L Hgb 13.0 Hct 38.7 MCV 92.4 MCH 31.0 MCHC 33.6 RDW 13.0 Plt Count 288 MPV 10.0 Neut # (Auto) 4.3 Lymph # (Auto) 2.7 [place] # (Auto) 0.6 Eos # (Auto) 0.1 Baso # (Auto) 0.1 Absolute Nucleated RBC 0.00 Nucleated RBC % 0.0 Sodium 136 Potassium 3.4 L Chloride 103 Carbon Dioxide 22 Anion Gap 11.0 BUN 8 Creatinine 0.6 Estimated GFR (MDRD) 108 Glucose 110 H Calcium 9.0 Total Bilirubin 0.9 AST 18 ALT 16 Alkaline Phosphatase 55 Troponin I High Sens 2.4 Total Protein 7.0 Albumin 4.4 Globulin 2.6 Albumin/Globulin Ratio 1.7 Lipase 22 Urine Color Urine Clarity Urine pH Ur Specific [place] Urine Protein Urine Glucose (UA) Urine Ketones Urine Occult Blood Urine Nitrite Urine Bilirubin Urine Urobilinogen Ur Leukocyte Esterase Urine RBC Urine WBC Ur Squamous Epith Cells Urine Bacteria Ur Microscopic Review Urine Culture Comments Urine HCG, Qual Urine Opiates Screen Ur Oxycodone Screen Urine Methadone Screen Ur Propoxyphene Screen Ur Barbiturates Screen Ur Tricyclics Screen Ur Phencyclidine Scrn Ur Amphetamine Screen U Methamphetamines Scrn U Benzodiazepines Scrn Urine Cocaine Screen U Cannabinoids Screen Ethyl Alcohol < 5.0 11/22/19 11/22/19 03:25 03:25 WBC RBC Hgb Hct MCV MCH MCHC RDW Plt Count MPV Neut # (Auto) Lymph # (Auto) [place] # (Auto) Eos # (Auto) Baso # (Auto) Absolute Nucleated RBC Nucleated RBC % Sodium Potassium Chloride Carbon Dioxide Anion Gap BUN Creatinine Estimated GFR (MDRD) Glucose Calcium Total Bilirubin AST ALT Alkaline Phosphatase Troponin I High Sens Total Protein Albumin Globulin Albumin/Globulin Ratio Lipase Urine Color YELLOW Urine Clarity CLEAR Urine pH 6.0 Ur Specific [place] 1.025 Urine Protein NEGATIVE Urine Glucose (UA) NEGATIVE Urine Ketones 15 H Urine Occult Blood SMALL H Urine Nitrite NEGATIVE Urine Bilirubin SMALL H Urine Urobilinogen 0.2 (NORMAL) Ur Leukocyte Esterase SMALL H Urine RBC 6-10 H Urine WBC 4-5 Ur Squamous Epith Cells MANY Squamous H Urine Bacteria Few Ur Microscopic Review INDICATED Urine Culture Comments NOT INDICATED Urine HCG, Qual NEGATIVE Urine Opiates Screen NEGATIVE Ur Oxycodone Screen NEGATIVE Urine Methadone Screen NEGATIVE Ur Propoxyphene Screen NEGATIVE Ur Barbiturates Screen NEGATIVE Ur Tricyclics Screen NEGATIVE Ur Phencyclidine Scrn NEGATIVE Ur Amphetamine Screen POSITIVE H U Methamphetamines Scrn POSITIVE H U Benzodiazepines Scrn POSITIVE H Urine Cocaine Screen NEGATIVE U Cannabinoids Screen POSITIVE H Ethyl Alcohol PD MEDICAL DECISION MAKING - ED course Complexity details: re-evaluated patient (sober, pain free, will dc home with close follow up.), considered differential (hx and exam are consistent with methamphetamine abuse. ) Departure - Departure Disposition: 01 Home, Self Care Clinical Impression: Methamphetamine abuse Chest pain Qualifiers: Chest pain type: unspecified Qualified Code(s): R07.9 - Chest pain, unspecified Condition: Stable Instructions: Abuse Meth Abuse and Addiction Follow-Up: your, doctor [Other] Comments: discontinue drug use. establish care with a primary care physician. Discharge Date/Time: 11/22/19 05:03
[2019-11-22] MEDS: LORazepam 2 MG/ML VIAL IVP STA (03:00)
[2019-11-22] MEDS: SODIUM CHLORIDE 0.9% 1,000 ML IV ONE (03:01)
[2019-11-22] MEDS ORDERED: ASPIRIN 325 MG TABLET PO STA (03:03)
[2019-11-22 03:09] LABS: BASOPHILS # (AUTO) 0.1 10^3/uL (0.0-0.1); BASOPHILS % (AUTO) 0.8 %; EOSINOPHILS # (AUTO) 0.1 10^3/uL (0.0-0.7); EOSINOPHILS % (AUTO) 1.8 %; LYMPHOCYTES # (AUTO) 2.7 10^3/uL (1.5-3.5); LYMPHOCYTES % (AUTO) 34.2 %; MEAN CORPUSCULAR HGB CONC 33.6 g/dL (32.0-36.0); MEAN CORPUSCULAR VOLUME 92.4 fL (81.0-99.0); MONOCYTES # (AUTO) 0.6 10^3/uL (0.0-1.0); NEUTROPHILS # (AUTO) 4.3 10^3/uL (1.5-6.6); NEUTROPHILS % (AUTO) 54.8 %; PLT - PLATELET COUNT 288 10^3/uL (130-450); RED BLOOD COUNT 4.19 10^6/uL (4.20-5.40); WHITE BLOOD COUNT 7.8 x10^3/uL (4.8-10.8)
[2019-11-22] MEDS: NITROGLYCERIN SL 0.4 MG TABLET SL PRN (03:12)
[2019-11-22 03:23] LABS: ALBUMIN 4.4 g/dL (3.2-5.5); ALBUMIN/GLOBULIN RATIO 1.7 (1.0-2.2); ALKALINE PHOSPHATASE 55 IU/L (42-121); ALT ALANINE AMINOTRANSFERASE 16 IU/L (10-60); AST ASPARTATE AMINOTRANSFERASE 18 IU/L (10-42); BILIRUBIN,TOTAL 0.9 mg/dL (0.2-1.0); BUN - BLOOD UREA NITROGEN 8 mg/dL (6-20); CARBON DIOXIDE - CO2 22 mmol/L (21-32); CHLORIDE 103 mmol/L (101-111); CREATININE 0.6 mg/dL (0.4-1.0); GLUCOSE 110 mg/dL (70-100); LIPASE 22 U/L (22-51); SODIUM 136 mmol/L (135-145)
[2019-11-22 03:30] LABS: MUDS CUTOFF CONCENTRATIONS CUTOFF CONC BELOW:
[2019-11-22 03:32] LABS: BILIRUBIN,URINE SMALL (NEGATIVE); GLUCOSE, URINE (UA) NEGATIVE (NEGATIVE); KETONES,URINE (UA) 15 mg/dL (NEGATIVE); LEUKOCYTE ESTERASE, URINE SMALL (NEGATIVE); NITRITE,URINE NEGATIVE (NEGATIVE); OCCULT BLOOD,URINE SMALL (NEGATIVE); PROTEIN,URINE NEGATIVE (NEGATIVE); UROBILINOGEN,URINE 0.2 (NORMAL) E.U./dL (NORMAL)
--- NOTE | 2019-11-22 03:32 | XRAY Report ---
Reason: cp Procedure Date: 11/22/2019 Accession Number: [id number] / [id number] Procedure: XR - Chest 1 View X-Ray CPT Code: 90172 Final Report FULL RESULT: EXAM: CHEST RADIOGRAPHY EXAM DATE: 11/22/2019 03:24 AM. CLINICAL HISTORY: Chest pain COMPARISON: CHEST 1 VIEW 10/08/2018 2:52 PM. TECHNIQUE: 1 view. FINDINGS: The mediastinal and cardiac silhouettes are normal. The lungs are clear. No pleural effusion or pneumothorax is seen. The osseous structures are intact. IMPRESSION: No focal consolidation. RADIA
[2019-11-22 03:37] LABS: CLARITY,URINE CLEAR (CLEAR); HCG UR QUAL NEGATIVE
[2019-11-22 03:42] LABS: BACTERIA,URINE Few /HPF (None Seen); SQUAMOUS EPITHELIAL CELL,UR MANY Squamous (<= Few)
[2019-11-22 03:43] LABS: AMPHETAMINE SCREEN,URINE POSITIVE (NEGATIVE); BENZODIAZEPINES SCREEN, URINE POSITIVE (NEGATIVE); COCAINE SCREEN URINE NEGATIVE (NEGATIVE); METHADONE SCREEN, URINE NEGATIVE (NEGATIVE); METHAMPHETAMINES SCREEN, URINE POSITIVE (NEGATIVE); OPIATE SCREEN, URINE NEGATIVE (NEGATIVE); OXYCODONE SCREEN, URINE NEGATIVE (NEGATIVE); PROPOXYPHENE SCREEN, URINE NEGATIVE (NEGATIVE); TRICYCLIC ANTIDEPRESSANT,URINE NEGATIVE (NEGATIVE)
[2019-11-22 05:03] VITALS: BP 110/67
== END 2019-11-22 05:03 | disposition home or self-care (01) ==
LOC: EDUNIT# → ED 02:43
DX: R07.9 Chest pain, unspecified (principal); F15.10 Other stimulant abuse, uncomplicated
CPT/HCPCS: 36415; 71045; 80053; 80306; 80320; 81001; 81003; 81025; 83690; 84484; 85025; 87086; 93005; 96361; 96374; 99283

== ENCOUNTER 2019-12-21 16:30 | Emergency (ER) | payer MEDICAID ==
[2019-12-21 16:46] LABS: MUDS CUTOFF CONCENTRATIONS CUTOFF CONC BELOW:
[2019-12-21 16:49] LABS: BILIRUBIN,URINE NEGATIVE (NEGATIVE); GLUCOSE, URINE (UA) NEGATIVE (NEGATIVE); KETONES,URINE (UA) NEGATIVE (NEGATIVE); LEUKOCYTE ESTERASE, URINE NEGATIVE (NEGATIVE); NITRITE,URINE NEGATIVE (NEGATIVE); OCCULT BLOOD,URINE SMALL (NEGATIVE); PH,URINE 5.5 PH (5.0-7.5); PROTEIN,URINE NEGATIVE (NEGATIVE); UROBILINOGEN,URINE 0.2 (NORMAL) E.U./dL (NORMAL)
[2019-12-21 16:53] LABS: CLARITY,URINE HAZY (CLEAR); HCG UR QUAL NEGATIVE
[2019-12-21 17:00] LABS: BASOPHILS # (AUTO) 0.1 10^3/uL (0.0-0.1); BASOPHILS % (AUTO) 0.5 %; EOSINOPHILS # (AUTO) 0.1 10^3/uL (0.0-0.7); EOSINOPHILS % (AUTO) 0.8 %; HGB - HEMOGLOBIN 14.4 g/dL (12.0-16.0); LYMPHOCYTES # (AUTO) 2.3 10^3/uL (1.5-3.5); MEAN CORPUSCULAR HEMOGLOBIN 31.6 pg (27.0-31.0); MEAN CORPUSCULAR HGB CONC 33.5 g/dL (32.0-36.0); MEAN CORPUSCULAR VOLUME 94.5 fL (81.0-99.0); MONOCYTES # (AUTO) 0.5 10^3/uL (0.0-1.0); MONOCYTES % (AUTO) 5.2 %; NEUTROPHILS # (AUTO) 6.6 10^3/uL (1.5-6.6); NEUTROPHILS % (AUTO) 69.2 %; PLT - PLATELET COUNT 253 10^3/uL (130-450); RED BLOOD COUNT 4.55 10^6/uL (4.20-5.40); RED CELL DISTRIBUTION WIDTH 13.1 % (12.0-15.0); WHITE BLOOD COUNT 9.6 x10^3/uL (4.8-10.8)
[2019-12-21 17:05] LABS: AMPHETAMINE SCREEN,URINE NEGATIVE (NEGATIVE); BENZODIAZEPINES SCREEN, URINE NEGATIVE (NEGATIVE); COCAINE SCREEN URINE NEGATIVE (NEGATIVE); METHADONE SCREEN, URINE NEGATIVE (NEGATIVE); METHAMPHETAMINES SCREEN, URINE NEGATIVE (NEGATIVE); OPIATE SCREEN, URINE NEGATIVE (NEGATIVE); OXYCODONE SCREEN, URINE NEGATIVE (NEGATIVE); PROPOXYPHENE SCREEN, URINE NEGATIVE (NEGATIVE); TRICYCLIC ANTIDEPRESSANT,URINE NEGATIVE (NEGATIVE)
[2019-12-21 17:11] LABS: BACTERIA,URINE Rare /HPF (None Seen); RBC,URINE 0-5 /HPF (0-5); SQUAMOUS EPITHELIAL CELL,UR FEW Squamous (<= Few)
[2019-12-21 17:14] LABS: ACETAMINOPHEN < 10 ug/mL (10-30); ALBUMIN 4.7 g/dL (3.2-5.5); ALBUMIN/GLOBULIN RATIO 1.6 (1.0-2.2); ALKALINE PHOSPHATASE 65 IU/L (42-121); ALT ALANINE AMINOTRANSFERASE 15 IU/L (10-60); AST ASPARTATE AMINOTRANSFERASE 15 IU/L (10-42); BILIRUBIN,TOTAL 0.4 mg/dL (0.2-1.0); BUN - BLOOD UREA NITROGEN 8 mg/dL (6-20); CALCIUM 8.6 mg/dL (8.5-10.3); CARBON DIOXIDE - CO2 21 mmol/L (21-32); CHLORIDE 103 mmol/L (101-111); CREATININE 0.7 mg/dL (0.4-1.0); GLUCOSE 97 mg/dL (70-100); LIPASE 25 U/L (22-51); SALICYLATE < 6.0 mg/dL; SODIUM 136 mmol/L (135-145); TOTAL PROTEIN 7.6 g/dL (6.7-8.2)
--- NOTE | 2019-12-21 17:57 | ED Physician Documentation ---
PD HPI MHE - Stated complaint Stated Complaint: MHE - Chief complaint Chief Complaint: MHE - History obtained from History obtained from: Patient - History of Present Illness Primary symptom: Suicidal ideation, Depression. No: Suicide attempt Timing - onset: How many days ago (has been having several days of depression, suicidal ideation without plan nor attempt. Talked with her counselor and discussed the above, and the counselor called law enforcement to bring her in for evaluation.) Contributing factors: Family, Substance abuse - ETOH, Off meds (states has not taken her psych meds for few weeks.). No: Substance abuse - drugs Similar symptoms before: Diagnosis Recently seen: Not recently seen Review of Systems Constitutional: denies: Fever, Chills Nose: denies: Rhinorrhea / runny nose, Congestion Throat: denies: Sore throat Respiratory: denies: Dyspnea GI: denies: Abdominal Pain, Nausea, Vomiting, Diarrhea Skin: denies: Rash, Lesions Neurologic: denies: Generalized weakness, Focal weakness, Numbness, Headache, Head injury Psychiatric: reports: Depressed, Suicidal, Insomnia. 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 - Present Medications Home Medications: Ambulatory Orders Medication Instructions Recorded Confirmed LORazepam [Ativan] 1 mg PO TID PRN #25 tablet 07/19/19 12/21/19 Sertraline [Zoloft] 50 mg PO DAILY 11/22/19 12/21/19 Gabapentin 400 mg PO TID PRN 12/21/19 12/21/19 Olanzapine [Zyprexa] 10 mg PO DAILY PM 12/21/19 12/21/19 - Allergies Allergies/Adverse Reactions: Allergies Allergy/AdvReac Type Severity Reaction Status Date / Time hydromorphone [From Dilaudid] Allergy Nausea Verified 12/21/19 16:37 tramadol Allergy Emesis Verified 12/21/19 16:37 opiates Allergy Mild Emesis Uncoded 12/21/19 16:37 - Social History Does the pt smoke?: Yes Smoking Status: Current every day smoker Does the pt drink ETOH?: Yes ETOH Use: Beer Does the pt have substance abuse?: Yes Substance Use and Type: Marijuana - Immunizations Immunizations are current?: No Immunizations: TDAP >10years/unknown - POLST Patient has POLST: No PD ED PE NORMAL - Vitals Vital signs reviewed: Yes - General General: Alert and oriented X 3, No acute distress, Well developed/nourished - HEENT HEENT: Moist mucous membranes, Pharynx benign - Cardiac Cardiac: RRR, No murmur - Respiratory Respiratory: Clear bilaterally - Abdomen Abdomen: Normal bowel sounds, Soft, Non distended - Derm Derm: Normal color, Warm and dry - Neuro Neuro: Alert and oriented X 3, No motor deficit, Normal speech Results - Vitals Vitals: Vital Signs - 24 hr 12/21/19 12/21/19 12/21/19 16:30 17:19 21:13 Temperature 36.8 C 37.4 C Heart Rate 91 77 75 Respiratory 16 18 16 Rate Blood Pressure 126/87 H 116/74 112/65 O2 Saturation 99 98 98 12/21/19 12/21/19 12/21/19 21:14 22:27 23:03 Temperature Heart Rate Respiratory 16 16 17 Rate Blood Pressure O2 Saturation 12/22/19 12/22/19 12/22/19 00:08 00:11 01:25 Temperature Heart Rate Respiratory 16 16 14 Rate Blood Pressure O2 Saturation Oxygen O2 Source Room air - Labs Labs: Laboratory Tests 12/21/19 12/21/19 12/21/19 16:40 16:40 16:55 WBC 9.6 RBC 4.55 Hgb 14.4 Hct 43.0 MCV 94.5 MCH 31.6 H MCHC 33.5 RDW 13.1 Plt Count 253 MPV 10.0 Neut # (Auto) 6.6 Lymph # (Auto) 2.3 [place] # (Auto) 0.5 Eos # (Auto) 0.1 Baso # (Auto) 0.1 Absolute Nucleated RBC 0.00 Nucleated RBC % 0.0 Sodium Potassium Chloride Carbon Dioxide Anion Gap BUN Creatinine Estimated GFR (MDRD) Glucose Calcium Total Bilirubin AST ALT Alkaline Phosphatase Total Protein Albumin Globulin Albumin/Globulin Ratio Lipase TSH Urine Color YELLOW Urine Clarity HAZY Urine pH 5.5 Ur Specific [place] <=1.005 <=1.005 Urine Protein NEGATIVE Urine Glucose (UA) NEGATIVE Urine Ketones NEGATIVE Urine Occult Blood SMALL H Urine Nitrite NEGATIVE Urine Bilirubin NEGATIVE Urine Urobilinogen 0.2 (NORMAL) Ur Leukocyte Esterase NEGATIVE Urine RBC 0-5 Urine WBC 0-3 Ur Squamous Epith Cells FEW Squamous Urine Bacteria Rare Ur Microscopic Review INDICATED Urine Culture Comments NOT INDICATED Urine HCG, Qual NEGATIVE Salicylates Urine Opiates Screen NEGATIVE Ur Oxycodone Screen NEGATIVE Urine Methadone Screen NEGATIVE Ur Propoxyphene Screen NEGATIVE Acetaminophen Ur Barbiturates Screen NEGATIVE Ur Tricyclics Screen NEGATIVE Ur Phencyclidine Scrn NEGATIVE Ur Amphetamine Screen NEGATIVE U Methamphetamines Scrn NEGATIVE U Benzodiazepines Scrn NEGATIVE Urine Cocaine Screen NEGATIVE U Cannabinoids Screen POSITIVE H Ethyl Alcohol 12/21/19 12/21/19 16:55 16:55 WBC RBC Hgb Hct MCV MCH MCHC RDW Plt Count MPV Neut # (Auto) Lymph # (Auto) [place] # (Auto) Eos # (Auto) Baso # (Auto) Absolute Nucleated RBC Nucleated RBC % Sodium 136 Potassium 3.4 L Chloride 103 Carbon Dioxide 21 Anion Gap 12.0 BUN 8 Creatinine 0.7 Estimated GFR (MDRD) 90 Glucose 97 Calcium 8.6 Total Bilirubin 0.4 AST 15 ALT 15 Alkaline Phosphatase 65 Total Protein 7.6 Albumin 4.7 Globulin 2.9 Albumin/Globulin Ratio 1.6 Lipase 25 TSH 1.30 Urine Color Urine Clarity Urine pH Ur Specific [place] Urine Protein Urine Glucose (UA) Urine Ketones Urine Occult Blood Urine Nitrite Urine Bilirubin Urine Urobilinogen Ur Leukocyte Esterase Urine RBC Urine WBC Ur Squamous Epith Cells Urine Bacteria Ur Microscopic Review Urine Culture Comments Urine HCG, Qual Salicylates < 6.0 Urine Opiates Screen Ur Oxycodone Screen Urine Methadone Screen Ur Propoxyphene Screen Acetaminophen < 10 L Ur Barbiturates Screen Ur Tricyclics Screen Ur Phencyclidine Scrn Ur Amphetamine Screen U Methamphetamines Scrn U Benzodiazepines Scrn Urine Cocaine Screen U Cannabinoids Screen Ethyl Alcohol 94.7 PD MEDICAL DECISION MAKING - ED course Complexity details: re-evaluated patient (awaiting TelePsych. She is feeling calmer with Ativan for withdrawal and anxioety.), considered differential (The patient states she has history of bipolar and has not been on meds for a while but drinking instead. She tapered down is wanting to stop drinking but is having a little bit of withdrawal symptoms. Last drink was overnight into this morning. She is feeling depressed and would like help. She has been hospit alized previously and feels that that may be helpful at this point. Social work is not in-house anymore. We can obtain a tele-psych consultation for opinion and evaluation. Based on that we can potentially seek voluntary hospitalization. Meanwhile I gave her some Ativan to help with potential withdrawal. We could start her on some of her medication she had been on which was a antidepressant and olanzapine.), d/w patient
[2019-12-21] MEDS ORDERED: LORazepam 1 MG TABLET PO STA (18:35)
--- NOTE | 2019-12-21 23:17 | TELEPSYCH PHYS NOTE ---
Telepsych Note - CHIEF COMPLAINT/HX OF PRESENT ILLNESS Cheif Complaint and History of Present Illness: Pt is a 49y/o swf with h/o mood d/o who was sent over by her therapist due to suicidal thoughts. Pt endorsed h/o self harm but denied prior suicide attempts. She admits to feeling hopeless and having various thoughts of ending her life but did not specify a plan. She denied thoughts of harm to others or h/o violence. She c/o poor sleep, poor appetite, feeling tearful, isolative and hopeless. She says her anxiety has been really severe and describes her manic episodes as severe anxiety and inability to sleep. - SI/HI/SELF HARM SI/HI/SELF HARM (CURRENT OR HISTORY OF):: SI, Cutting SI/HI/Self Harm Text (Current or History of):: current suicidal thoughts and h/o self harm - VIOLENCE/LEGAL/COLLATERAL Violence - Legal - Collateral: denied thoughts of harm to others or h/o violence - PSYCHIATRIC HX/TREATMENT HX Psychiatric: Depression, Anxiety, Bipolar disorder, Panic attacks Psychiatric/Treatment Hx Other: She admits to several prior psych hospitalizations. She said she was last admitted for dual dx around september 2019. She is in therapy and able to speak to her therapist by phone - DRUG/ALCOHOL HX Substance Use and Type: Marijuana ETOH Use: Beer Number: 7 Substance use/abuse/alcohol text: Pt says she has been in treatment many times and that she would go to AA but has been unable to due to the pandemic. She admits to alcohol but denied blackouts, Dts or sz. She has tried "all of em" when asked about illicit drugs but denied consistent use of any. she does admit to h/o IVDA - MEDICAL HX Does the pt have a hx of MRSA?: Yes Neurological History: None Eyes, Ears, Nose, Throat: None Cardiovascular: None, Arrhythmia Respiratory: COPD Skin: Rosacea Endocrine/Autoimmune: None Gastrointestinal: GERD, Ulcers, Diverticulitis Is Patient ?: No Urinary: None Musculoskeletal: None Blood Disorders: None - SURGICAL HX Gynecologic: Tubal ligation - HOME MEDICATIONS Home Meds (as last confirmed): Patient History Medication Instructions Recorded Confirmed Sertraline [Zoloft] 50 mg PO DAILY 11/22/19 12/21/19 Gabapentin 400 mg PO TID PRN 12/21/19 12/21/19 Olanzapine [Zyprexa] 10 mg PO DAILY PM 12/21/19 12/21/19 - ALLERGIES Allergies (as last confirmed): Allergies Allergy/AdvReac Type Severity Reaction Status Date / Time hydromorphone [From Dilaudid] Allergy Nausea Verified 12/21/19 16:37 tramadol Allergy Emesis Verified 12/21/19 16:37 opiates Allergy Mild Emesis Uncoded 12/21/19 16:37 - FAMILY PSYCH/SUICIDE/SOCIAL HX-MENTAL Family - Suicide - Social Hx and Mental Status Exam: FH: Pt said her father was depressed and mom had bipolar. both parents abused substances. mom attempted suicide many times and ultimately from a drug overdose thought to be a suicide. Sh: Pt was with her childrens father for many years but that ended over 10yrs ago. She has had a boyfriend for the past 6yrs. She lives alone. Her children are 23, 25 and 18y/o. She has some contact but avoids them due to substance abuse. She does endorse h/o trauma with flashbacks. her boyfriend is her main support. She has a GEd and is on SSDI for mental illness. She denied access to guns or legal issues. MSE: PT was unkempt with pleading eye contact. She had rosacea on her cheeks. She expressed feeling severely anxious and hopeless. She endorsed suicidal thoughts. She said her bipolar is dominated by anxiety and that she does not ge t the fun highs. She displayed a tearful affect with some irritability. She did not appear internally preoccupied. Her thought process was vague but linear. Insight was limited with poor judgment. - TREATMENT/PHARMACOLOGICAL RECOMMENDATION Treatment - Pharmacological - Therapy Recommendations: Pt is a 49y/o swf with h/o mood d/o and alcohol abuse who presents at the request of her therapist due to suicidal thoughts. She denied attempts but has engaged in self harm. She stopped her meds a few when ago due to alcohol use. She denied blackouts and DTs but admits to several hospitalizations related to substance abuse. She admits to using multiple substances but not on a "daily basis" she has used IV drugs before. She c/o multiple stressors overwhelming her and feeling very hopeless about her future. She says she has been avoiding her children and grand child. Her family hx is significant for substance issues, affective d/o and her mother is suspected to have committed suicide by OD. Pt presents tearful, distraught and hopeless with suicidal thoughts, h/o self harm and possible family hx of completed suicide.. She is in need of i npatient for safety and stabilization. 1. Recommend admit to dual dx for mood stabilization and safety. 2. Provide safety precautions 3. Monitor for alcohol w/d with CIWA and initiate alcohol detox if needed with Ativan 2mg po prn w/d sx. 4. Resume Zyprexa 10mg po qhs along with Zyprexa 5mg po/im q 4h prn agitation/psychosis. - TIME SPENT & PROVIDER LOCATION Telepsych consultation conducted via videoconferencing: Yes List names and roles of persons who participated in consult: Mary Rene and Mel Goode MD Telepsych Provider Location: [place] Time Telepsych consult began: 02:00 Time Telepsych consult completed: 02:15
--- NOTE | 2019-12-22 01:02 | ED Physician Documentation ---
ED Addendum - Addendum Addendum: 12/22/19 01:02 Tele-psychiatry evaluated the patient and recommends voluntary inpatient admission. Patient is agreeable to this. Social work will be consulted in the morning to assist with placement. This document was made in part using voice recognition software. While efforts are made to proofread this document, sound alike and grammatical errors may occur.
--- NOTE | 2019-12-22 04:55 | ED Physician Documentation ---
ED Addendum - Addendum Addendum: 12/22/19 04:54 Patient accepted to [facility] by RONALD Mcmahon. COBRA forms completed. Patient will be transferred. This document was made in part using voice recognition software. While efforts are made to proofread this document, sound alike and grammatical errors may occur. Departure - Departure Disposition: 65 Psych Hosp/Unit DC/Xfer Clinical Impression: Suicidal ideation Depression Qualifiers: Depression Type: other depression Qualified Code(s): F32.89 - Other specified depressive episodes Condition: Stable
[2019-12-22] MEDS ORDERED: LORazepam 1 MG TABLET PO STA (12:19)
[2019-12-22 13:37] VITALS: BP 138/75
== END 2019-12-22 13:45 ==
LOC: ED 16:30
DX: F31.9 Bipolar disorder, unspecified (principal); R45.851 Suicidal ideations; F41.9 Anxiety disorder, unspecified; F10.239 Alcohol dependence with withdrawal, unspecified; Z91.14 Patient's other noncompliance with medication regimen; F17.200 Nicotine dependence, unspecified, uncomplicated
CPT/HCPCS: 36415; 80053; 80306; 80307; 80320; 80329; 81001; 81025; 83690; 84443; 85025; 93005; 99283; 99285; J8499; 81003; 87086

== ENCOUNTER 2020-09-03 09:36 | Outpatient (CLI) | payer MEDICAID | END 2020-09-03 09:37 | disposition critical access hospital (66) | LOC: EMS 09:36 | PROVIDERS: ATTEND Emergency Medicine | DX: F41.9 Anxiety disorder, unspecified (principal); F32.9 Major depressive disorder, single episode, unspecified | CPT/HCPCS: A0425; A0429; A0999 ==

== ENCOUNTER 2020-09-03 09:53 | Emergency (ER) | payer MEDICAID ==
--- NOTE | 2020-09-03 10:31 | ED Physician Documentation ---
PD HPI MHE - Stated complaint Stated Complaint: ANXIETY/DEPRESSION - Chief complaint Chief Complaint: MHE - History obtained from History obtained from: Patient - History of Present Illness Primary symptom: Suicidal ideation, Depression, Anxiety Timing - onset: Other (Worsening over the past few weeks) Pain level max: 0 Pain level now: 0 Recently seen: Not recently seen - Additional information Additional information: Patient is a 49-year-old female who presents to the emergency department with increasing anxiety and depression. States she feels like she is in crisis. Patient states that she feels suicidal but does not have a plan. She states she was unable to see her counselor this week. 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 : None HEENT: None Psych: Depression, Anxiety, Bipolar disorder, Panic attacks Musculoskeletal: None Derm: Rosacea - Past Surgical History Past Surgical History: Yes /CUSTOMER SERVICE ANALYST: Tubal ligation - Present Medications Home Medications: Ambulatory Orders Medication Instructions Recorded Confirmed Gabapentin 400 mg PO TID PRN 12/21/19 12/21/19 PARoxetine HCl [Paxil] 20 mg PO 09/03/20 Propranolol [Inderal] 09/03/20 - Allergies Allergies/Adverse Reactions: Allergies Allergy/AdvReac Type Severity Reaction Status Date / Time hydromorphone [From Dilaudid] Allergy Nausea Verified 09/03/20 10:11 tramadol Allergy Emesis Verified 09/03/20 10:11 opiates Allergy Mild Emesis Uncoded 09/03/20 10:11 - Social History Does the pt smoke?: Yes Smoking Status: Current every day smoker Does the pt drink ETOH?: Yes Does the pt have substance abuse?: Yes - Immunizations Immunizations are current?: No Immunizations: TDAP >10years/unknown - POLST Patient has POLST: No PD ED PE NORMAL - Vitals Vital signs reviewed: Yes - General General: Alert and oriented X 3, No acute distress - HEENT HEENT: Moist mucous membranes - Neck Neck: Supple, no meningeal sign - Cardiac Cardiac: RRR - Respiratory Respiratory: No respiratory distress, Clear bilaterally - Abdomen Abdomen: Soft, Non tender, Non distended - Derm Derm: Warm and dry - Extremities Extremities: No edema, No calf tenderness / cord - Neuro Neuro: Alert and oriented X 3 - Psych Psych: Other (Tearful, anxious) Results - Vitals Vitals: Vital Signs - 24 hr 09/03/20 10:05 Temperature 36.6 C Heart Rate 90 Respiratory 18 Rate Blood Pressure 114/76 O2 Saturation 98 Oxygen O2 Source Room air - EKG (time done) 1043 Rate: Rate (enter#) (75) Rhythm: NSR [place]: Normal Intervals: Normal AK QRS: Normal Ischemia: Normal ST segments - Labs Labs: Laboratory Tests 09/03/20 09/03/20 09/03/20 10:08 10:30 10:50 WBC 9.5 RBC 4.80 Hgb 14.8 Hct 43.9 MCV 91.5 MCH 30.8 MCHC 33.7 RDW 12.4 Plt Count 338 MPV 10.1 Neut # (Auto) 7.5 H Lymph # (Auto) 1.4 L Richardson # (Auto) 0.5 Eos # (Auto) 0.0 Baso # (Auto) 0.0 Absolute Nucleated RBC 0.00 Nucleated RBC % 0.0 Sodium Potassium Chloride Carbon Dioxide Anion Gap BUN Creatinine Estimated GFR (MDRD) Glucose Calcium Magnesium Total Bilirubin AST ALT Alkaline Phosphatase Total Protein Albumin Globulin Albumin/Globulin Ratio Lipase TSH Urine Color YELLOW Urine Clarity CLEAR Urine pH 6.0 Ur Specific Dutton 1.010 Urine Protein NEGATIVE Urine Glucose (UA) NEGATIVE Urine Ketones 15 H Urine Occult Blood SMALL H Urine Nitrite NEGATIVE Urine Bilirubin NEGATIVE Urine Urobilinogen 0.2 (NORMAL) Ur Leukocyte Esterase NEGATIVE Urine RBC 0-5 Urine WBC 0-3 Ur Squamous Epith Cells MOD Squamous H Urine Bacteria Rare Ur Microscopic Review INDICATED Urine Culture Comments NOT INDICATED Urine HCG, Qual NEGATIVE Nasal Adenovirus (PCR) NOT DETECTED Nasal B. parapertussis DNA (PCR) NOT DETECTED Nasal Coronavir 229E PCR NOT DETECTED Nasal Coronavir HKU1 PCR NOT DETECTED Nasal Coronavir NL63 PCR NOT DETECTED Nasal Coronavir OC43 PCR NOT DETECTED Nasal Enterovir/Rhinovir PCR NOT DETECTED Nasal Influenza B PCR NOT DETECTED Nasal Influenza A PCR NOT DETECTED Nasal Parainfluen 1 PCR NOT DETECTED Nasal Parainfluen 2 PCR NOT DETECTED Nasal Parainfluen 3 PCR NOT DETECTED Nasal Parainfluen 4 PCR NOT DETECTED Nasal RSV (PCR) NOT DETECTED Nasal B.pertussis DNA PCR NOT DETECTED Nasal C.pneumoniae (PCR) NOT DETECTED Guero Human Metapneumo PCR NOT DETECTED Nasal M.pneumoniae (PCR) NOT DETECTED Nasal SARS-CoV-2 (PCR) NOT DETECTED Salicylates Urine Opiates Screen NEGATIVE Ur Oxycodone Screen NEGATIVE Urine Methadone Screen NEGATIVE Ur Propoxyphene Screen NEGATIVE Acetaminophen Ur Barbiturates Screen NEGATIVE Ur Tricyclics Screen NEGATIVE Ur Phencyclidine Scrn NEGATIVE Ur Amphetamine Screen NEGATIVE U Methamphetamines Scrn NEGATIVE U Benzodiazepines Scrn NEGATIVE Urine Cocaine Screen NEGATIVE U Cannabinoids Screen POSITIVE H Ethyl Alcohol 09/03/20 09/03/20 09/03/20 10:50 10:50 10:50 WBC RBC Hgb Hct MCV MCH MCHC RDW Plt Count MPV Neut # (Auto) Lymph # (Auto) Richardson # (Auto) Eos # (Auto) Baso # (Auto) Absolute Nucleated RBC Nucleated RBC % Sodium 136 Potassium 4.1 Chloride 96 L Carbon Dioxide 23 Anion Gap 17.0 H BUN 14 Creatinine 0.8 Estimated GFR (MDRD) 77 L Glucose 118 H Calcium 9.8 Magnesium 2.6 Total Bilirubin 0.7 AST 32 ALT 28 Alkaline Phosphatase 58 Total Protein 7.7 Albumin 5.0 Globulin 2.7 Albumin/Globulin Ratio 1.9 Lipase 27 TSH 0.87 Urine Color Urine Clarity Urine pH Ur Specific Dutton Urine Protein Urine Glucose (UA) Urine Ketones Urine Occult Blood Urine Nitrite Urine Bilirubin Urine Urobilinogen Ur Leukocyte Esterase Urine RBC Urine WBC Ur Squamous Epith Cells Urine Bacteria Ur Microscopic Review Urine Culture Comments Urine HCG, Qual Nasal Adenovirus (PCR) Nasal B. parapertussis DNA (PCR) Nasal Coronavir 229E PCR Nasal Coronavir HKU1 PCR Nasal Coronavir NL63 PCR Nasal Coronavir OC43 PCR Nasal Enterovir/Rhinovir PCR Nasal Influenza B PCR Nasal Influenza A PCR Nasal Parainfluen 1 PCR Nasal Parainfluen 2 PCR Nasal Parainfluen 3 PCR Nasal Parainfluen 4 PCR Nasal RSV (PCR) Nasal B.pertussis DNA PCR Nasal C.pneumoniae (PCR) Guero Human Metapneumo PCR Nasal M.pneumoniae (PCR) Nasal SARS-CoV-2 (PCR) Salicylates < 6.0 Urine Opiates Screen Ur Oxycodone Screen Urine Methadone Screen Ur Propoxyphene Screen Acetaminophen < 10 L Ur Barbiturates Screen Ur Tricyclics Screen Ur Phencyclidine Scrn Ur Amphetamine Screen U Methamphetamines Scrn U Benzodiazepines Scrn Urine Cocaine Screen U Cannabinoids Screen Ethyl Alcohol < 5.0 PD MEDICAL DECISION MAKING - ED course Complexity details: reviewed results, re-evaluated patient, considered differential, d/w patient ED course: Patient is medically clear for psychiatric care. Social work consulted. We will seek voluntary placement. Patient signed out to the [facility] emergency department physician awaiting final disposition. This document was made in part using voice recognition software. While efforts are made to proofread this document, sound alike and grammatical errors may occur. Departure - Departure Clinical Impression: Anxiety Depression Qualifiers: Depression Type: unspecified Qualified Code(s): F32.9 - Major depressive disorder, single episode, unspecified Condition: Stable
[2020-09-03 10:41] LABS: MUDS CUTOFF CONCENTRATIONS CUTOFF CONC BELOW:
[2020-09-03 10:43] LABS: BILIRUBIN,URINE NEGATIVE (NEGATIVE); GLUCOSE, URINE (UA) NEGATIVE (NEGATIVE); KETONES,URINE (UA) 15 mg/dL (NEGATIVE); LEUKOCYTE ESTERASE, URINE NEGATIVE (NEGATIVE); NITRITE,URINE NEGATIVE (NEGATIVE); OCCULT BLOOD,URINE SMALL (NEGATIVE); PROTEIN,URINE NEGATIVE (NEGATIVE); UROBILINOGEN,URINE 0.2 (NORMAL) E.U./dL (NORMAL)
[2020-09-03 10:44] LABS: CLARITY,URINE CLEAR (CLEAR)
[2020-09-03 10:45] LABS: HCG UR QUAL NEGATIVE
[2020-09-03 10:52] LABS: AMPHETAMINE SCREEN,URINE NEGATIVE (NEGATIVE); BENZODIAZEPINES SCREEN, URINE NEGATIVE (NEGATIVE); COCAINE SCREEN URINE NEGATIVE (NEGATIVE); METHADONE SCREEN, URINE NEGATIVE (NEGATIVE); METHAMPHETAMINES SCREEN, URINE NEGATIVE (NEGATIVE); OPIATE SCREEN, URINE NEGATIVE (NEGATIVE); OXYCODONE SCREEN, URINE NEGATIVE (NEGATIVE); PROPOXYPHENE SCREEN, URINE NEGATIVE (NEGATIVE); TRICYCLIC ANTIDEPRESSANT,URINE NEGATIVE (NEGATIVE)
[2020-09-03 10:55] LABS: BACTERIA,URINE Rare /HPF (None Seen); RBC,URINE 0-5 /HPF (0-5); SQUAMOUS EPITHELIAL CELL,UR MOD Squamous (<= Few)
[2020-09-03 10:58] LABS: BASOPHILS % (AUTO) 0.4 %; EOSINOPHILS % (AUTO) 0.1 %; HGB - HEMOGLOBIN 14.8 g/dL (12.0-16.0); LYMPHOCYTES # (AUTO) 1.4 10^3/uL (1.5-3.5); MEAN CORPUSCULAR HEMOGLOBIN 30.8 pg (27.0-31.0); MEAN CORPUSCULAR HGB CONC 33.7 g/dL (32.0-36.0); MEAN CORPUSCULAR VOLUME 91.5 fL (81.0-99.0); MEAN PLATELET VOLUME 10.1 fL (7.9-10.8); MONOCYTES # (AUTO) 0.5 10^3/uL (0.0-1.0); MONOCYTES % (AUTO) 5.2 %; NEUTROPHILS # (AUTO) 7.5 10^3/uL (1.5-6.6); PLT - PLATELET COUNT 338 10^3/uL (130-450); RED CELL DISTRIBUTION WIDTH 12.4 % (12.0-15.0); WHITE BLOOD COUNT 9.5 x10^3/uL (4.8-10.8)
[2020-09-03 11:23] LABS: ACETAMINOPHEN < 10 ug/mL (10-30); ALBUMIN/GLOBULIN RATIO 1.9 (1.0-2.2); ALKALINE PHOSPHATASE 58 IU/L (42-121); ALT ALANINE AMINOTRANSFERASE 28 IU/L (10-60); AST ASPARTATE AMINOTRANSFERASE 32 IU/L (10-42); BILIRUBIN,TOTAL 0.7 mg/dL (0.2-1.0); BUN - BLOOD UREA NITROGEN 14 mg/dL (6-20); CALCIUM 9.8 mg/dL (8.5-10.3); CARBON DIOXIDE - CO2 23 mmol/L (21-32); CHLORIDE 96 mmol/L (101-111); CREATININE 0.8 mg/dL (0.4-1.0); GLUCOSE 118 mg/dL (70-100); LIPASE 27 U/L (22-51); SALICYLATE < 6.0 mg/dL; TOTAL PROTEIN 7.7 g/dL (6.7-8.2)
[2020-09-03] MEDS ORDERED: LORazepam 1 MG TABLET PO STA (11:29)
[2020-09-03 12:42] LABS: C. PNEUMONIAE- RESP PCR PANEL NOT DETECTED
--- NOTE | 2020-09-03 17:45 | ED Physician Documentation ---
ED Addendum - Addendum Addendum: 09/03/20 17:44 She was excepted to [facility] under the care of Dr. Davila. Cobras were completed. She is stable for transport. Diagnosis: 1. Depression 2. Anxiety Condition stable Disposition: Transferred to [facility] for psychiatric care.
[2020-09-03 19:14] VITALS: BP 116/68
== END 2020-09-03 19:17 ==
LOC: EDUNIT# → ED 09:53
DX: R41.9 Unspecified symptoms and signs involving cognitive functions and awareness (principal); F32.9 Major depressive disorder, single episode, unspecified; F17.200 Nicotine dependence, unspecified, uncomplicated; Z20.822 Contact with and (suspected) exposure to COVID-19
CPT/HCPCS: 0202U; 36415; 80053; 80306; 80307; 80320; 80329; 81001; 81025; 83690; 83735; 84443; 85025; 93005; 99283; 99285; J8499; 81003; 87086

== ENCOUNTER 2020-12-08 08:00 | Outpatient (CLI) | payer MEDICAID | END 2020-12-08 23:59 | disposition home or self-care (01) | LOC: LAB.WCP 08:00 | PROVIDERS: ATTEND Nurse Practitioner Family | DX: Z78.0 Asymptomatic menopausal state (principal) | CPT/HCPCS: 36415; 82670; 83001 ==

== ENCOUNTER 2020-12-11 08:00 | Outpatient (CLI) | payer MEDICAID ==
[2020-12-11 12:17] LABS: BASOPHILS % (AUTO) 0.6 %; EOSINOPHILS # (AUTO) 0.1 10^3/uL (0.0-0.7); HGB - HEMOGLOBIN 13.7 g/dL (12.0-16.0); LYMPHOCYTES # (AUTO) 2.3 10^3/uL (1.5-3.5); LYMPHOCYTES % (AUTO) 33.4 %; MEAN CORPUSCULAR HEMOGLOBIN 29.7 pg (27.0-31.0); MEAN CORPUSCULAR HGB CONC 32.6 g/dL (32.0-36.0); MEAN CORPUSCULAR VOLUME 91.1 fL (81.0-99.0); MEAN PLATELET VOLUME 10.4 fL (7.9-10.8); MONOCYTES # (AUTO) 0.5 10^3/uL (0.0-1.0); MONOCYTES % (AUTO) 7.3 %; NEUTROPHILS # (AUTO) 3.9 10^3/uL (1.5-6.6); NEUTROPHILS % (AUTO) 56.6 %; PLT - PLATELET COUNT 287 10^3/uL (130-450); RED BLOOD COUNT 4.61 10^6/uL (4.20-5.40); RED CELL DISTRIBUTION WIDTH 12.8 % (12.0-15.0); WHITE BLOOD COUNT 6.9 x10^3/uL (4.8-10.8)
[2020-12-11 12:40] LABS: ALBUMIN 4.6 g/dL (3.2-5.5); ALBUMIN/GLOBULIN RATIO 1.8 (1.0-2.2); BILIRUBIN,TOTAL 0.7 mg/dL (0.2-1.0); CALCIUM 9.6 mg/dL (8.5-10.3); CREATININE 0.8 mg/dL (0.4-1.0); POTASSIUM 4.4 mmol/L (3.5-5.0); TOTAL PROTEIN 7.2 g/dL (6.7-8.2)
[2020-12-11 12:48] LABS: THYROID STIMULATING HORMONE 1.28 uIU/mL (0.34-5.60)
== END 2020-12-11 23:59 | disposition home or self-care (01) ==
LOC: LAB.WCP 08:00
PROVIDERS: ATTEND Internal Medicine
DX: R07.89 Other chest pain (principal); F41.1 Generalized anxiety disorder
CPT/HCPCS: 36415; 80053; 83690; 84443; 85025

== ENCOUNTER 2020-12-11 12:33 | Outpatient (CLI) | payer MEDICAID ==
--- NOTE | 2020-12-11 13:48 | XRAY Report ---
PROCEDURE: Chest 2 View X-Ray INDICATIONS: ATYPICAL CHEST DISCOMFORT TECHNIQUE: 2 view(s) of the chest. COMPARISON: 11/22/2019 FINDINGS: Surgical changes and devices: None. Lungs and pleura: No pleural effusions or pneumothorax. Lungs are clear. Mediastinum: Mediastinal contours are normal. Heart size is normal. Bones and chest wall: No suspicious bony abnormalities. Soft tissues appear unremarkable. IMPRESSION: No acute cardiopulmonary process demonstrated radiographically. Reviewed by: Gee Thomas MD on 12/11/2020 1:46 PM PDT Approved by: Gee Thomas MD on 12/11/2020 1:46 PM PDT Station ID: [id number]
== END 2020-12-11 12:34 | disposition home or self-care (01) ==
LOC: DI.N 12:33
PROVIDERS: ATTEND Internal Medicine
DX: R07.89 Other chest pain (principal); F41.1 Generalized anxiety disorder
CPT/HCPCS: 36415; 80053; 83690; 84443; 85025

== ENCOUNTER 2020-12-13 13:01 | Outpatient (CLI) | payer MEDICAID ==
[2020-12-13] MEDS ORDERED: ALBUTEROL 1 PUFF INH ONE (13:02)
[2020-12-14] MEDS ORDERED: ALBUTEROL 1 PUFF INH STA (18:02)
== END 2020-12-13 13:02 | disposition home or self-care (01) ==
LOC: RT 13:01
PROVIDERS: ATTEND Internal Medicine
DX: R07.89 Other chest pain (principal)
CPT/HCPCS: 94060; 94664

== ENCOUNTER 2020-12-30 07:00 | Outpatient (CLI) | payer MEDICAID ==
[2020-12-30 13:59] LABS: HCT - HEMATOCRIT 39.8 % (37.0-47.0); HGB - HEMOGLOBIN 13.5 g/dL (12.0-16.0); MEAN CORPUSCULAR HGB CONC 33.9 g/dL (32.0-36.0); MEAN CORPUSCULAR VOLUME 91.3 fL (81.0-99.0); MEAN PLATELET VOLUME 10.5 fL (7.9-10.8); RED BLOOD COUNT 4.36 10^6/uL (4.20-5.40); RED CELL DISTRIBUTION WIDTH 12.8 % (12.0-15.0); WHITE BLOOD COUNT 6.1 x10^3/uL (4.8-10.8)
[2020-12-30 14:07] LABS: BILIRUBIN,URINE NEGATIVE (NEGATIVE); GLUCOSE, URINE (UA) NEGATIVE (NEGATIVE); KETONES,URINE (UA) TRACE mg/dL (NEGATIVE); LEUKOCYTE ESTERASE, URINE NEGATIVE (NEGATIVE); NITRITE,URINE NEGATIVE (NEGATIVE); OCCULT BLOOD,URINE SMALL (NEGATIVE); PROTEIN,URINE NEGATIVE (NEGATIVE); UROBILINOGEN,URINE 0.2 (NORMAL) E.U./dL (NORMAL)
[2020-12-30 14:09] LABS: RHEUMATOID FACTOR NEGATIVE (Negative)
[2020-12-30 14:15] LABS: CRP - C-REACTIVE PROTEIN 1.2 mg/dL (0-1.0)
[2020-12-30 14:19] LABS: URIC ACID 4.5 mg/dL (2.6-7.2)
[2020-12-30 14:20] LABS: BACTERIA,URINE Moderate /HPF (None Seen); CLARITY,URINE HAZY (CLEAR); RBC,URINE 0-5 /HPF (0-5); SQUAMOUS EPITHELIAL CELL,UR MANY Squamous (<= Few); WBC,URINE 0-3 /HPF (0-5)
[2021-01-02 11:01] LABS: DNA (DS) ANTIBODY <1 IU/mL
[2021-01-02 13:53] LABS: ANA SCREEN NEGATIVE (NEGATIVE)
[2021-01-03 13:16] LABS: CYCLIC CITRULL PEPTIDE CCP IGG <16 UNITS
== END 2020-12-30 23:59 | disposition home or self-care (01) ==
LOC: LAB.N 07:00
PROVIDERS: ATTEND Physician Assistant Medical
DX: R53.83 Other fatigue (principal); R10.13 Epigastric pain
CPT/HCPCS: 36415; 81001; 81599; 83020; 84550; 85014; 85018; 85027; 85041; 85651; 86038; 86140; 86200; 86225; 86430; 87086

== ENCOUNTER 2021-01-04 08:00 | Outpatient (CLI) | payer MEDICAID ==
[2021-01-04 17:53] LABS: BILIRUBIN,URINE NEGATIVE (NEGATIVE); GLUCOSE, URINE (UA) NEGATIVE (NEGATIVE); KETONES,URINE (UA) NEGATIVE (NEGATIVE); LEUKOCYTE ESTERASE, URINE NEGATIVE (NEGATIVE); NITRITE,URINE NEGATIVE (NEGATIVE); OCCULT BLOOD,URINE MODERATE (NEGATIVE); PROTEIN,URINE NEGATIVE (NEGATIVE); UROBILINOGEN,URINE 0.2 (NORMAL) E.U./dL (NORMAL)
[2021-01-04 17:54] LABS: CLARITY,URINE CLEAR (CLEAR); HCT - HEMATOCRIT 39.9 % (37.0-47.0); HGB - HEMOGLOBIN 12.9 g/dL (12.0-16.0); MEAN CORPUSCULAR HEMOGLOBIN 30.4 pg (27.0-31.0); MEAN CORPUSCULAR HGB CONC 32.3 g/dL (32.0-36.0); MEAN CORPUSCULAR VOLUME 93.9 fL (81.0-99.0); MEAN PLATELET VOLUME 10.6 fL (7.9-10.8); RED BLOOD COUNT 4.25 10^6/uL (4.20-5.40); RED CELL DISTRIBUTION WIDTH 13.1 % (12.0-15.0); WHITE BLOOD COUNT 6.1 x10^3/uL (4.8-10.8)
[2021-01-04 17:59] LABS: BACTERIA,URINE Few /HPF (None Seen); MUCUS,URINE Few Strands; RBC,URINE 0-5 /HPF (0-5); SQUAMOUS EPITHELIAL CELL,UR FEW Squamous (<= Few); WBC,URINE 0-3 /HPF (0-5)
[2021-01-04 18:11] LABS: RHEUMATOID FACTOR NEGATIVE (Negative)
[2021-01-04 18:22] LABS: URIC ACID 5.2 mg/dL (2.6-7.2)
[2021-01-04 18:25] LABS: CRP - C-REACTIVE PROTEIN < 1.0 mg/dL (0-1.0)
[2021-01-06 12:56] LABS: DNA (DS) ANTIBODY <1 IU/mL
[2021-01-06 22:22] LABS: ANA SCREEN NEGATIVE (NEGATIVE)
== END 2021-01-04 23:59 | disposition home or self-care (01) ==
LOC: LAB.WCP 08:00
PROVIDERS: ATTEND Physician Assistant Medical
DX: R53.83 Other fatigue (principal); R30.0 Dysuria
CPT/HCPCS: 36415; 81001; 81599; 84550; 85027; 85651; 86038; 86140; 86200; 86225; 86430; 87086

== ENCOUNTER 2021-01-04 18:28 | Emergency (ER) | payer MEDICAID ==
--- OUTSIDE RECORDS SUMMARY | 2021-01-04 18:31 | EXTERNAL MEDICAL SUMMARY RPT | Continuity of Care Document ---
:1970 Demographics Phone Unavailable Preferred Language Unknown Marital Status Unknown Cheondoism Affiliation Unknown Race Unknown Ethnic Group Unknown Author Organization [facility] Address [address] [phone] Phone Allergies Encounters Medications Problems Results
--- OUTSIDE RECORDS SUMMARY | 2021-01-04 18:35 | EXTERNAL MEDICAL SUMMARY RPT | Continuity of Care Document ---
:1970 Demographics Phone Unavailable Preferred Language Unknown Marital Status Unknown Sabianist Affiliation Unknown Race Unknown Ethnic Group Unknown Author Organization [facility] Address [address] [phone] Phone Allergies Encounters Medications Problems Results
[2021-01-04 19:03] LABS: BASOPHILS # (AUTO) 0.1 10^3/uL (0.0-0.1); BASOPHILS % (AUTO) 0.8 %; EOSINOPHILS # (AUTO) 0.2 10^3/uL (0.0-0.7); HCT - HEMATOCRIT 36.9 % (37.0-47.0); HGB - HEMOGLOBIN 12.4 g/dL (12.0-16.0); LYMPHOCYTES % (AUTO) 39.6 %; MEAN CORPUSCULAR HEMOGLOBIN 30.3 pg (27.0-31.0); MEAN CORPUSCULAR HGB CONC 33.6 g/dL (32.0-36.0); MEAN CORPUSCULAR VOLUME 90.2 fL (81.0-99.0); MONOCYTES # (AUTO) 0.4 10^3/uL (0.0-1.0); MONOCYTES % (AUTO) 5.8 %; NEUTROPHILS % (AUTO) 51.7 %; PLT - PLATELET COUNT 282 10^3/uL (130-450); RED BLOOD COUNT 4.09 10^6/uL (4.20-5.40); RED CELL DISTRIBUTION WIDTH 12.6 % (12.0-15.0); WHITE BLOOD COUNT 7.7 x10^3/uL (4.8-10.8)
[2021-01-04 19:09] LABS: BILIRUBIN,URINE NEGATIVE (NEGATIVE); GLUCOSE, URINE (UA) NEGATIVE (NEGATIVE); KETONES,URINE (UA) 15 mg/dL (NEGATIVE); LEUKOCYTE ESTERASE, URINE NEGATIVE (NEGATIVE); NITRITE,URINE NEGATIVE (NEGATIVE); OCCULT BLOOD,URINE MODERATE (NEGATIVE); PROTEIN,URINE NEGATIVE (NEGATIVE); UROBILINOGEN,URINE 0.2 (NORMAL) E.U./dL (NORMAL)
[2021-01-04 19:10] LABS: CLARITY,URINE CLEAR (CLEAR)
[2021-01-04 19:17] LABS: ALBUMIN 4.8 g/dL (3.2-5.5); ALBUMIN/GLOBULIN RATIO 1.8 (1.0-2.2); BILIRUBIN,TOTAL 0.6 mg/dL (0.2-1.0); CALCIUM 9.3 mg/dL (8.5-10.3); CREATININE 0.9 mg/dL (0.4-1.0); POTASSIUM 3.9 mmol/L (3.5-5.0); TOTAL PROTEIN 7.5 g/dL (6.7-8.2)
[2021-01-04 19:22] LABS: RBC,URINE 0-5 /HPF (0-5); SQUAMOUS EPITHELIAL CELL,UR MANY Squamous (<= Few); WBC,URINE 0-3 /HPF (0-5)
[2021-01-04 19:23] LABS: BACTERIA,URINE Moderate /HPF (None Seen); MUCUS,URINE Moderate Strands
--- NOTE | 2021-01-04 20:10 | ED Physician Documentation ---
History of Present Illness - Stated complaint Stated Complaint: ABD PX,NAUSEA - Chief complaint Chief Complaint: Abd Pain - History obtained from History obtained from: Patient - History of Present Illness Timing: Chronic Pain level max: 10 Pain level now: 10 - Additonal information Additional information: Patient is a 50-year-old female who presents to the emergency department with many complaints. She states that these have all been going on for several months to years. She states the first complaint is diffuse abdominal pain. She states sometimes she feels nauseated "to the point I think I am going to throw up". She states that sometimes the pain is crampy, sometimes dull and sometimes burning. It moves around her abdomen. She also states that she has had lower back pain for several years but it has been hurting more over the past year. She states that her doctor did an x-ray several years ago. She also states that she has chronic neck pain that has been hurting her more recently over the past several months as well. She also states that she has a history of "sores" to her bilateral thighs and that these have been itchy recently. She has not had any diarrhea or vomiting. No trauma. She also states that occasionally her right elbow will hurt especially when she is doing something like opening a door. She states she has seen her doctor for these things and is being referred to gastroenterology for her ongoing stomach issues. She also states that she has a cardiac stress test ordered, she states occasionally she has chest pain but none today. She states that she was seen at the walk-in clinic today and had normal testing there. She states they told her if she got worse that she should go to the emergency department so she came into the emergency department tonight. 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 Review of Systems Ten Systems: 10 systems reviewed and negative Constitutional: denies: Fever, Chills Ears: denies: Ear pain Nose: denies: Rhinorrhea / runny nose, Congestion Cardiac: reports: Chest pain / pressure (occasionally, none for a few days.) Respiratory: denies: Cough GI: reports: Nausea : denies: Dysuria, Frequency, Hesitancy, Incontinent Skin: denies: Rash Musculoskeletal: reports: Neck pain, Back pain Neurologic: reports: Generalized weakness, Headache (none now). 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 - Present Medications Home Medications: Ambulatory Orders Medication Instructions Recorded Confirmed Gabapentin [Neurontin] 600 mg PO BID 01/04/21 01/04/21 LORazepam [Ativan] 0.5 mg PO Q8HR PRN 01/04/21 01/04/21 Meloxicam [Mobic] 7.5 mg PO BID PRN #20 tablet 01/04/21 OXcarbazepine [Trileptal] 300 mg PO BID 01/04/21 01/04/21 Ondansetron Odt [Zofran] 4 mg TL Q6H PRN #10 tablet 01/04/21 Vortioxetine Hydrobromide 10 mg PO DAILY 01/04/21 01/04/21 [Trintellix] - Allergies Allergies/Adverse Reactions: Allergies Allergy/AdvReac Type Severity Reaction Status Date / Time hydromorphone [From Dilaudid] Allergy Nausea Verified 01/04/21 18:34 tramadol Allergy Emesis Verified 01/04/21 18:34 Opioids - Morphine Analogues AdvReac Mild Emesis Verified 01/04/21 18:34 - Social History Does the pt smoke?: Yes Smoking Status: Current every day smoker Does the pt drink ETOH?: Yes Does the pt have substance abuse?: Yes - Immunizations Immunizations are current?: No Immunizations: TDAP >10years/unknown - POLST Patient has POLST: No PD ED PE NORMAL - Vitals Vital signs reviewed: Yes - General General: Alert and oriented X 3, No acute distress, Well developed/nourished - HEENT HEENT: PERRL, Moist mucous membranes, Pharynx benign - Neck Neck: Supple, no meningeal sign, No bony TTP (FROM) - Cardiac Cardiac: RRR, Strong equal pulses - Respiratory Respiratory: No respiratory distress, Clear bilaterally - Abdomen Abdomen: Soft, Non tender, Non distended - Back Back: No CVA TTP, No spinal TTP (FROM) - Derm Derm: Warm and dry, Other (Old healed abscesses of the bilateral inner thighs. No active infection) - Extremities Extremities: No deformity, Normal ROM s pain, No edema, No calf tenderness / cord, Other (Normal bilateral lower extremity patellar and ankle jerk reflexes. Normal great toe extension bilaterally. 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, No motor deficit, No sensory deficit, Normal speech Eye Opening: Spontaneous Motor: Obeys Commands Verbal: Oriented GCS Score: 15 - Psych Psych: Other (appears highly anxious) Results - Vitals Vitals: Vital Signs - 24 hr 01/04/21 01/04/21 01/04/21 18:34 21:27 22:00 Temperature 36.5 C 36.8 C 36.5 C Heart Rate 90 67 76 Respiratory 16 16 16 Rate Blood Pressure 126/79 114/53 L 128/82 H O2 Saturation 100 99 100 Oxygen O2 Source Room air - Labs Labs: Laboratory Tests 01/04/21 01/04/21 01/04/21 18:50 18:50 18:58 WBC 7.7 RBC 4.09 L Hgb 12.4 Hct 36.9 L MCV 90.2 MCH 30.3 MCHC 33.6 RDW 12.6 Plt Count 282 MPV 10.0 Neut # (Auto) 4.0 Lymph # (Auto) 3.0 [place] # (Auto) 0.4 Eos # (Auto) 0.2 Baso # (Auto) 0.1 Absolute Nucleated RBC 0.00 Nucleated RBC % 0.0 Sodium Potassium Chloride Carbon Dioxide Anion Gap BUN Creatinine Estimated GFR (MDRD) Glucose Calcium Total Bilirubin AST ALT Alkaline Phosphatase Total Protein Albumin Globulin Albumin/Globulin Ratio Lipase Urine Color YELLOW Urine Clarity CLEAR Urine pH 6.0 Ur Specific [place] 1.025 Urine Protein NEGATIVE Urine Glucose (UA) NEGATIVE Urine Ketones 15 H Urine Occult Blood MODERATE H Urine Nitrite NEGATIVE Urine Bilirubin NEGATIVE Urine Urobilinogen 0.2 (NORMAL) Ur Leukocyte Esterase NEGATIVE Urine RBC 0-5 Urine WBC 0-3 Ur Squamous Epith Cells MANY Squamous H Urine Bacteria Moderate H Urine Mucus Moderate Strands Ur Microscopic Review INDICATED Urine Culture Comments NOT INDICATED Urine Opiates Screen NEGATIVE Ur Oxycodone Screen NEGATIVE Urine Methadone Screen NEGATIVE Ur Propoxyphene Screen NEGATIVE Ur Barbiturates Screen NEGATIVE Ur Tricyclics Screen NEGATIVE Ur Phencyclidine Scrn NEGATIVE Ur Amphetamine Screen NEGATIVE U Methamphetamines Scrn NEGATIVE U Benzodiazepines Scrn POSITIVE H Urine Cocaine Screen NEGATIVE U Cannabinoids Screen NEGATIVE Ethyl Alcohol 01/04/21 01/04/21 18:58 18:58 WBC RBC Hgb Hct MCV MCH MCHC RDW Plt Count MPV Neut # (Auto) Lymph # (Auto) [place] # (Auto) Eos # (Auto) Baso # (Auto) Absolute Nucleated RBC Nucleated RBC % Sodium 136 Potassium 3.9 Chloride 103 Carbon Dioxide 23 Anion Gap 10.0 BUN 14 Creatinine 0.9 Estimated GFR (MDRD) 67 L Glucose 100 Calcium 9.3 Total Bilirubin 0.6 AST 20 ALT 20 Alkaline Phosphatase 56 Total Protein 7.5 Albumin 4.8 Globulin 2.7 Albumin/Globulin Ratio 1.8 Lipase 28 Urine Color Urine Clarity Urine pH Ur Specific [place] Urine Protein Urine Glucose (UA) Urine Ketones Urine Occult Blood Urine Nitrite Urine Bilirubin Urine Urobilinogen Ur Leukocyte Esterase Urine RBC Urine WBC Ur Squamous Epith Cells Urine Bacteria Urine Mucus Ur Microscopic Review Urine Culture Comments Urine Opiates Screen Ur Oxycodone Screen Urine Methadone Screen Ur Propoxyphene Screen Ur Barbiturates Screen Ur Tricyclics Screen Ur Phencyclidine Scrn Ur Amphetamine Screen U Methamphetamines Scrn U Benzodiazepines Scrn Urine Cocaine Screen U Cannabinoids Screen Ethyl Alcohol < 5.0 - Rads (name of study) CT abdomen pelvis Radiology: Prelim report reviewed, EMP read contemporaneously, See rad report (No acute abnormality) PD MEDICAL DECISION MAKING - ED course Complexity details: reviewed results, re-evaluated patient, considered differential, d/w patient ED course: No acute findings on CT scan. No acute laboratory abnormalities. Ambulating without difficulty. We will trial her on meloxicam and Zofran for home. She has an appointment upcoming with cardiology, gastroenterology and sees her doctor again next week. Patient is very well-appearing, nontoxic. Afebrile. Patient counseled regarding signs and symptoms for which I believe and urgent re-evaluation would be necessary. Patient with good understanding of and agreement to plan and is comfortable going home at this time This document was made in part using voice recognition software. While efforts are made to proofread this document, sound alike and grammatical errors may occur. Departure - Departure Disposition: 01 Home, Self Care Clinical Impression: Abdominal pain Qualifiers: Abdominal location: generalized Qualified Code(s): R10.84 - Generalized abdominal pain Back pain Qualifiers: Back pain location: back pain in unspecified location Chronicity: chronic Back pain laterality: bilateral Qualified Code(s): M54.9 - Dorsalgia, unspecified Condition: Good Instructions: ED Abdominal Pain Unkn Cause Follow-Up: Morena Doran DO [Primary Care Provider] - Within 1 week Prescriptions: Meloxicam [Mobic] 7.5 mg PO BID PRN #20 tablet PRN Reason: Pain Ondansetron Odt [Zofran] 4 mg TL Q6H PRN #10 tablet PRN Reason: Nausea / Vomiting Comments: The cause of your symptoms is unclear. Please follow-up with your doctor for further care. Return if you worsen. Discharge Date/Time: 01/04/21 22:05
[2021-01-04] MEDS ORDERED: KETOROLAC 30 MG/ML VIAL IVP STA (20:26)
[2021-01-04] MEDS ORDERED: SODIUM CHLORIDE 0.9% 1,000 ML IV STA (20:26)
[2021-01-04] MEDS ORDERED: IOVERSOL 320 100 ML VIAL IVP ONE ×2 (20:30→21:00)
[2021-01-04 20:46] LABS: MUDS CUTOFF CONCENTRATIONS CUTOFF CONC BELOW:
[2021-01-04 20:48] LABS: AMPHETAMINE SCREEN,URINE NEGATIVE (NEGATIVE); BARBITURATE SCREEN,UR NEGATIVE (NEGATIVE); BENZODIAZEPINES SCREEN, URINE POSITIVE (NEGATIVE); COCAINE SCREEN URINE NEGATIVE (NEGATIVE); METHADONE SCREEN, URINE NEGATIVE (NEGATIVE); METHAMPHETAMINES SCREEN, URINE NEGATIVE (NEGATIVE); OPIATE SCREEN, URINE NEGATIVE (NEGATIVE); OXYCODONE SCREEN, URINE NEGATIVE (NEGATIVE); PROPOXYPHENE SCREEN, URINE NEGATIVE (NEGATIVE); THC CANNABINOID SCREEN, URINE NEGATIVE (NEGATIVE); TRICYCLIC ANTIDEPRESSANT,URINE NEGATIVE (NEGATIVE)
--- NOTE | 2021-01-04 21:24 | CT Report ---
PROCEDURE: Abdomen/Pelvis W INDICATIONS: diffuse abd pain, vomiting CONTRAST: IV CONTRAST: Optiray 320 ml: 100 PO CONTRAST: *NO PO CONTRAST TECHNIQUE: After the administration of weight appropriate dose of intravenous contrast, 5 mm thick sections acqu ired from the diaphragms to the symphysis. 5 mm thick coronal and sagittal reformats were acquired. For radiation dose reduction, the following was used: automated exposure control, adjustment of mA and/or kV according to patient size. COMPARISON: CT dated 10/14/2018 FINDINGS: Image quality: Excellent. ABDOMEN: Lung bases: Lung bases are clear. Heart size is normal. Solid organs: Liver and spleen are normal in size and enhancement. Redemonstration of multiple small hepatic hypodensities likely representing cysts. Gallbladder is unremarkable. Biliary system is no n dilated. Pancreas enhances normally. No adrenal nodules. Kidneys demonstrate normal size and enh ancement, without hydronephrosis. Peritoneum and bowel: Bowel loops demonstrate normal wall thickness and caliber. No free fluid or a ir. Possible scant sigmoid colonic diverticula without acute inflammation. Normal appendix Nodes and vessels: No retroperitoneal or mesenteric adenopathy by size criteria. Aorta and inferior vena cava are normal in size. Minimal scattered atherosclerotic calcifications. Miscellaneous: No ventral hernias. PELVIS: Genitourinary: Bladder wall thickness is normal. Miscellaneous: No inguinal hernias or adenopathy. Bones: No suspicious bony lesions. No acute vertebral body compression fractures. IMPRESSION: 1. CT abdomen and pelvis without acute abnormalities. 2. Possible scant sigmoid colonic diverticula without acute diverticulitis. 3. Normal appendix. Reviewed by: Pepe Galloway MD on 01/04/2021 9:22 PM PDT Approved by: Pepe Galloway MD on 01/04/2021 9:22 PM PDT Station ID: [id number]
[2021-01-04 22:15] VITALS: BP 128/82
== END 2021-01-04 22:05 | disposition home or self-care (01) ==
LOC: ED 18:28
DX: R10.84 Generalized abdominal pain (principal); M54.9 Dorsalgia, unspecified; G89.29 Other chronic pain; R53.83 Other fatigue; R30.0 Dysuria; F17.200 Nicotine dependence, unspecified, uncomplicated
CPT/HCPCS: 36415; 74177; 80053; 80306; 80320; 81001; 83020; 83690; 84550; 85014; 85018; 85025; 85027; 85041; 85651; 86038; 86140; 86200; 86225; 86430; 96361; 96374; 99284; Q9967; 81003; 81599; 87086

== ENCOUNTER 2021-02-02 10:33 | Outpatient (CLI) | payer MEDICAID | END 2021-02-02 10:34 | disposition home or self-care (01) | LOC: LAB 10:33 | PROVIDERS: ATTEND Internal Medicine Gastroenterology | DX: Z01.812 Encounter for preprocedural laboratory examination (principal); R10.13 Epigastric pain; Z20.822 Contact with and (suspected) exposure to COVID-19 ==

== ENCOUNTER 2021-02-16 09:56 | Outpatient (CLI) | payer MEDICAID ==
--- NOTE | 2021-02-19 14:01 | Ultrasound Report ---
LIMITED ULTRASOUND OF RIGHT BREAST AND AXILLA: 02/16/2021 CLINICAL: Palpable right breast lump. Comparison is made to exams dated: 02/16/2021 mammogram, 11/10/2017 mammogram - [facility], 01/11/2016 ultrasound, 01/11/2016 mammogram, 01/07/2014 mammogram, and 04/17/2012 mammogram - [facility]. Color flow and real-time ultrasound of the right breast 1 o'clock, and axilla regions were performed. Lema scale images of the real-time examination were reviewed. There is a 1.2 cm x 1.1 cm x 1.1 cm oval mass with a circumscribed margin in the right breast at 1 o' clock posterior depth 9 cm from the nipple. This oval mass is hypoechoic with no posterior acoustic shadowing or enhancement. This correlates as palpated, with mammography findings, and area of clinic al concern. Color flow imaging demonstrates that there is an adjacent vascularity. No significant abnormalities were seen sonographically in the right axilla. IMPRESSION: PROBABLY BENIGN The 1.2 cm x 1.1 cm x 1.1 cm oval mass in the right breast most likely is fat necrosis and is probabl y benign. A follow-up right ultrasound in 6 months is recommended to demonstrate stability. Findings and recommendations were conveyed to the patient during today's evaluation. This exam was interpreted at Station ID: [id number]. Electronically Signed By: Pepe Galloway M.D. aty/:02/16/2021 12:29:48 Ultrasound BI-RADS: 3 Probably benign BI-RADS CATEGORY: (3) - 3 Ultrasound [id number] 6 month follow-up LATERALITY: (R)
--- NOTE | 2021-02-19 14:01 | Mammography Report ---
BILATERAL DIGITAL DIAGNOSTIC MAMMOGRAM 3D/2D: 02/16/2021 CLINICAL: Palpable right breast lump. Comparison is made to exams dated: 11/10/2017 mammogram - [facility], 01/11/2016 ult rasound, 01/11/2016 mammogram, 01/07/2014 mammogram, 04/17/2012 mammogram - [facility], and 04/17/2012 [facility]. The tissue of both breasts is heterogeneously dense. This may lowe r the sensitivity of mammography. There is a 1.2 cm oval low density mass with rim calcifications in the right breast at 1 o'clock post erior depth. This is not significantly changed and correlates as palpated, with area of clinical con cern, and triangle skin marker. No other significant masses, calcifications, or other findings are seen in either breast. IMPRESSION: INCOMPLETE: NEEDS ADDITIONAL IMAGING EVALUATION The 1.2 cm oval low density mass with thin rim of calcification in the right breast upper inner quad rant most likely is fat necrosis and is indeterminate. An ultrasound is recommended for further evaluation and is scheduled to immediately follow this exami [place] [facility]. This exam was interpreted at Station ID: [id number]. NOTE: For mammograms, a report in lay terms will be sent to the patient. Approximately 15% of breast malignancies will not be visualized mammographically. In the management of a palpable breast mass, a negative mammogram must not discourage biopsy of a clinically suspicious lesion. Electronically Signed By: Pepe Galloway M.D. aty/:02/16/2021 12:21:32 ACR BI-RADS Category 0: Incomplete 3340F PARENCHYMAL PATTERN: (D) - The breast(s) demonstrate(s) heterogeneously dense fibroglandular miller henriquez. BI-RADS CATEGORY: (0) - 0 Ultrasound [id number] Immediate follow-up LATERALITY: (R)
== END 2021-02-16 09:57 | disposition home or self-care (01) ==
LOC: DI 09:56
PROVIDERS: ATTEND Nurse Practitioner Family
DX: N63.12 Unspecified lump in the right breast, upper inner quadrant (principal)

== ENCOUNTER 2021-04-09 03:54 | Outpatient (CLI) | payer MEDICAID | END 2021-04-09 03:55 | disposition critical access hospital (66) | LOC: EMS 03:54 | DX: R45.851 Suicidal ideations (principal); F41.9 Anxiety disorder, unspecified; H93.13 Tinnitus, bilateral; N32.9 Bladder disorder, unspecified | CPT/HCPCS: A0425; A0429; A0999 ==

== ENCOUNTER 2021-04-09 04:10 | Emergency (ER) | payer MEDICAID ==
[2021-04-09 04:42] LABS: MUDS CUTOFF CONCENTRATIONS CUTOFF CONC BELOW:
[2021-04-09 04:45] LABS: BILIRUBIN,URINE NEGATIVE (NEGATIVE); GLUCOSE, URINE (UA) NEGATIVE (NEGATIVE); KETONES,URINE (UA) NEGATIVE (NEGATIVE); LEUKOCYTE ESTERASE, URINE NEGATIVE (NEGATIVE); NITRITE,URINE NEGATIVE (NEGATIVE); OCCULT BLOOD,URINE SMALL (NEGATIVE); PROTEIN,URINE NEGATIVE (NEGATIVE); UROBILINOGEN,URINE 0.2 (NORMAL) E.U./dL (NORMAL)
[2021-04-09 04:55] LABS: BASOPHILS # (AUTO) 0.1 10^3/uL (0.0-0.1); BASOPHILS % (AUTO) 0.6 %; EOSINOPHILS # (AUTO) 0.2 10^3/uL (0.0-0.7); EOSINOPHILS % (AUTO) 2.1 %; HCT - HEMATOCRIT 38.6 % (37.0-47.0); HGB - HEMOGLOBIN 12.8 g/dL (12.0-16.0); LYMPHOCYTES # (AUTO) 3.2 10^3/uL (1.5-3.5); LYMPHOCYTES % (AUTO) 36.7 %; MEAN CORPUSCULAR HEMOGLOBIN 30.5 pg (27.0-31.0); MEAN CORPUSCULAR HGB CONC 33.2 g/dL (32.0-36.0); MEAN CORPUSCULAR VOLUME 92.1 fL (81.0-99.0); MEAN PLATELET VOLUME 10.4 fL (7.9-10.8); MONOCYTES # (AUTO) 0.6 10^3/uL (0.0-1.0); MONOCYTES % (AUTO) 6.9 %; NEUTROPHILS # (AUTO) 4.7 10^3/uL (1.5-6.6); NEUTROPHILS % (AUTO) 53.4 %; PLT - PLATELET COUNT 226 10^3/uL (130-450); RED BLOOD COUNT 4.19 10^6/uL (4.20-5.40); RED CELL DISTRIBUTION WIDTH 12.4 % (12.0-15.0); WHITE BLOOD COUNT 8.7 x10^3/uL (4.8-10.8)
[2021-04-09 04:55] LABS: CLARITY,URINE CLEAR (CLEAR)
[2021-04-09 04:59] LABS: AMPHETAMINE SCREEN,URINE NEGATIVE (NEGATIVE); BACTERIA,URINE Few /HPF (None Seen); BARBITURATE SCREEN,UR NEGATIVE (NEGATIVE); BENZODIAZEPINES SCREEN, URINE NEGATIVE (NEGATIVE); COCAINE SCREEN URINE NEGATIVE (NEGATIVE); METHADONE SCREEN, URINE NEGATIVE (NEGATIVE); METHAMPHETAMINES SCREEN, URINE NEGATIVE (NEGATIVE); OPIATE SCREEN, URINE NEGATIVE (NEGATIVE); OXYCODONE SCREEN, URINE NEGATIVE (NEGATIVE); PROPOXYPHENE SCREEN, URINE NEGATIVE (NEGATIVE); RBC,URINE 0-5 /HPF (0-5); SQUAMOUS EPITHELIAL CELL,UR FEW Squamous (<= Few); THC CANNABINOID SCREEN, URINE NEGATIVE (NEGATIVE); TRICYCLIC ANTIDEPRESSANT,URINE NEGATIVE (NEGATIVE); WBC,URINE 0-3 /HPF (0-5)
[2021-04-09 05:09] LABS: ACETAMINOPHEN < 10 ug/mL (10-30); ALBUMIN 4.4 g/dL (3.2-5.5); ALBUMIN/GLOBULIN RATIO 1.9 (1.0-2.2); ALKALINE PHOSPHATASE 47 IU/L (42-121); ALT ALANINE AMINOTRANSFERASE 11 IU/L (10-60); AST ASPARTATE AMINOTRANSFERASE 11 IU/L (10-42); BILIRUBIN,TOTAL 0.6 mg/dL (0.2-1.0); BUN - BLOOD UREA NITROGEN 11 mg/dL (6-20); CALCIUM 8.8 mg/dL (8.5-10.3); CARBON DIOXIDE - CO2 22 mmol/L (21-32); CHLORIDE 102 mmol/L (101-111); CREATININE 0.7 mg/dL (0.4-1.0); ETOH - ETHANOL < 5.0 mg/dL; GFR - MDRD 89 (>89); GLUCOSE 104 mg/dL (70-100); LIPASE 31 U/L (22-51); POTASSIUM 3.6 mmol/L (3.5-5.0); SALICYLATE < 6.0 mg/dL; SODIUM 134 mmol/L (135-145); TOTAL PROTEIN 6.7 g/dL (6.7-8.2)
--- NOTE | 2021-04-09 05:17 | ED Physician Documentation ---
PD HPI MHE - Stated complaint Stated Complaint: SI - Chief complaint Chief Complaint: MHE - History obtained from History obtained from: Patient - History of Present Illness Primary symptom: Suicidal ideation, Depression, Anxiety - Additional information Additional information: patient c/o "a lot of depression and anxiety", "feeling like I was going to hurt myself" (per patient). She says she has had intrusive thoughts about stabbing herself but these are brief and she does not have a specific intent nor plan to kill herself. She was on an advice hotline tonight regarding her depression and anxiety but felt like she wasn't getting adequate answers and so she herself then called 911. She also has multiple somatic complaints over various time frames including chest pain, back pain, rash under her arms that persists despite recent antibiotic, nausea and vomiting, tinnitus. Review of Systems Constitutional: denies: Fever Ears: reports: Tinnitus/ringing Cardiac: reports: Chest pain / pressure. denies: Palpitations Respiratory: reports: Reviewed and negative GI: reports: Nausea, Vomiting. denies: Abdominal Pain Musculoskeletal: reports: Back pain Psychiatric: reports: Depressed, Anxiety. 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 - Present Medications Home Medications: Ambulatory Orders Medication Instructions Recorded Confirmed Gabapentin [Neurontin] 600 mg PO BID 01/04/21 04/09/21 LORazepam [Ativan] 0.5 mg PO Q8HR PRN 01/04/21 04/09/21 Meloxicam [Mobic] 7.5 mg PO BID PRN #20 tablet 01/04/21 04/09/21 OXcarbazepine [Trileptal] 300 mg PO BID 01/04/21 04/09/21 Vortioxetine Hydrobromide 10 mg PO DAILY 01/04/21 04/09/21 [Trintellix] Amitriptyline [Elavil] 25 mg PO DAILY 04/09/21 04/09/21 - Allergies Allergies/Adverse Reactions: Allergies Allergy/AdvReac Type Severity Reaction Status Date / Time hydromorphone [From Dilaudid] Allergy Nausea Verified 04/09/21 04:17 tramadol Allergy Emesis Verified 04/09/21 04:17 Opioids - Morphine Analogues AdvReac Mild Emesis Verified 04/09/21 04:17 - Social History Does the pt smoke?: Yes Smoking Status: Current every day smoker Does the pt drink ETOH?: Yes Does the pt have substance abuse?: Yes - Immunizations Immunizations are current?: No Immunizations: TDAP >10years/unknown - POLST Patient has POLST: No PD ED PE NORMAL - Vitals Vital signs reviewed: Yes - General General: Alert and oriented X 3, Well developed/nourished, Other (tearful and anxious during H+P) - HEENT HEENT: Moist mucous membranes - Neck Neck: Supple, no meningeal sign - Cardiac Cardiac: RRR, No murmur - Respiratory Respiratory: No respiratory distress, Clear bilaterally - Abdomen Abdomen: Soft, Non tender - Derm Derm: Normal color, Warm and dry - Extremities Extremities: No edema - Neuro Neuro: Alert and oriented X 3 Eye Opening: Spontaneous Motor: Obeys Commands Verbal: Oriented GCS Score: 15 Results - Vitals Vitals: Oxygen O2 Source Room air - EKG (time done) No standard instances Rate: Rate (enter#) (63) Rhythm: NSR [place]: Normal Intervals: Normal [place] QRS: Normal Ischemia: Normal ST segments - Labs Labs: Laboratory Tests 04/09/21 04/09/21 04/09/21 04:13 04:35 04:50 WBC 8.7 RBC 4.19 L Hgb 12.8 Hct 38.6 MCV 92.1 MCH 30.5 MCHC 33.2 RDW 12.4 Plt Count 226 MPV 10.4 Neut # (Auto) 4.7 Lymph # (Auto) 3.2 [place] # (Auto) 0.6 Eos # (Auto) 0.2 Baso # (Auto) 0.1 Absolute Nucleated RBC 0.00 Nucleated RBC % 0.0 Sodium Potassium Chloride Carbon Dioxide Anion Gap BUN Creatinine Estimated GFR (MDRD) Glucose Calcium Total Bilirubin AST ALT Alkaline Phosphatase Total Protein Albumin Globulin Albumin/Globulin Ratio Lipase TSH Urine Color YELLOW Urine Clarity CLEAR Urine pH 6.0 Ur Specific [place] 1.010 Urine Protein NEGATIVE Urine Glucose (UA) NEGATIVE Urine Ketones NEGATIVE Urine Occult Blood SMALL H Urine Nitrite NEGATIVE Urine Bilirubin NEGATIVE Urine Urobilinogen 0.2 (NORMAL) Ur Leukocyte Esterase NEGATIVE Urine RBC 0-5 Urine WBC 0-3 Ur Squamous Epith Cells FEW Squamous Urine Bacteria Few Ur Microscopic Review INDICATED Urine Culture Comments NOT INDICATED Nasal Adenovirus (PCR) NOT DETECTED Nasal B. parapertussis DNA (PCR) NOT DETECTED Nasal Coronavir 229E PCR NOT DETECTED Nasal Coronavir HKU1 PCR NOT DETECTED Nasal Coronavir NL63 PCR NOT DETECTED Nasal Coronavir OC43 PCR NOT DETECTED Nasal Enterovir/Rhinovir PCR NOT DETECTED Nasal Influenza B PCR NOT DETECTED Nasal Influenza A PCR NOT DETECTED Nasal Parainfluen 1 PCR NOT DETECTED Nasal Parainfluen 2 PCR NOT DETECTED Nasal Parainfluen 3 PCR NOT DETECTED Nasal Parainfluen 4 PCR NOT DETECTED Nasal RSV (PCR) NOT DETECTED Nasal B.pertussis DNA PCR NOT DETECTED Nasal C.pneumoniae (PCR) NOT DETECTED [place] Human Metapneumo PCR NOT DETECTED Nasal M.pneumoniae (PCR) NOT DETECTED Nasal SARS-CoV-2 (PCR) NOT DETECTED Salicylates Urine Opiates Screen NEGATIVE Ur Oxycodone Screen NEGATIVE Urine Methadone Screen NEGATIVE Ur Propoxyphene Screen NEGATIVE Acetaminophen Ur Barbiturates Screen NEGATIVE Ur Tricyclics Screen NEGATIVE Ur Phencyclidine Scrn NEGATIVE Ur Amphetamine Screen NEGATIVE U Methamphetamines Scrn NEGATIVE U Benzodiazepines Scrn NEGATIVE Urine Cocaine Screen NEGATIVE U Cannabinoids Screen NEGATIVE Ethyl Alcohol 04/09/21 04/09/21 04:50 04:50 WBC RBC Hgb Hct MCV MCH MCHC RDW Plt Count MPV Neut # (Auto) Lymph # (Auto) [place] # (Auto) Eos # (Auto) Baso # (Auto) Absolute Nucleated RBC Nucleated RBC % Sodium 134 L Potassium 3.6 Chloride 102 Carbon Dioxide 22 Anion Gap 10.0 BUN 11 Creatinine 0.7 Estimated GFR (MDRD) 89 Glucose 104 H Calcium 8.8 Total Bilirubin 0.6 AST 11 ALT 11 Alkaline Phosphatase 47 Total Protein 6.7 Albumin 4.4 Globulin 2.3 Albumin/Globulin Ratio 1.9 Lipase 31 TSH 1.73 Urine Color Urine Clarity Urine pH Ur Specific [place] Urine Protein Urine Glucose (UA) Urine Ketones Urine Occult Blood Urine Nitrite Urine Bilirubin Urine Urobilinogen Ur Leukocyte Esterase Urine RBC Urine WBC Ur Squamous Epith Cells Urine Bacteria Ur Microscopic Review Urine Culture Comments Nasal Adenovirus (PCR) Nasal B. parapertussis DNA (PCR) Nasal Coronavir 229E PCR Nasal Coronavir HKU1 PCR Nasal Coronavir NL63 PCR Nasal Coronavir OC43 PCR Nasal Enterovir/Rhinovir PCR Nasal Influenza B PCR Nasal Influenza A PCR Nasal Parainfluen 1 PCR Nasal Parainfluen 2 PCR Nasal Parainfluen 3 PCR Nasal Parainfluen 4 PCR Nasal RSV (PCR) Nasal B.pertussis DNA PCR Nasal C.pneumoniae (PCR) [place] Human Metapneumo PCR Nasal M.pneumoniae (PCR) Nasal SARS-CoV-2 (PCR) Salicylates < 6.0 Urine Opiates Screen Ur Oxycodone Screen Urine Methadone Screen Ur Propoxyphene Screen Acetaminophen < 10 L Ur Barbiturates Screen Ur Tricyclics Screen Ur Phencyclidine Scrn Ur Amphetamine Screen U Methamphetamines Scrn U Benzodiazepines Scrn Urine Cocaine Screen U Cannabinoids Screen Ethyl Alcohol < 5.0 PD MEDICAL DECISION MAKING - ED course Complexity details: reviewed old records, reviewed results, re-evaluated patient, considered differential, d/w patient ED course: patient has no remarkable findings on EKG and blood tests. She appears very anxious and is tearful at times, appears and sounds like she is overwhelmed. She was evaluated in the morning by social science analyst who was able to contract for safety with patient. She has an appointment with her therapist tomorrow (04/10) and is comfortable with being discharged home. She declines inpatient stay. She was given tylenol for headache, zofran for nausea, and lorazepam for her anxiety. Prior to discharge she no longer appeared anxious nor overwhelmed. Departure - Departure Disposition: 01 Home, Self Care Clinical Impression: Anxiety Depression Qualifiers: Depression Type: unspecified Qualified Code(s): F32.9 - Major depressive disorder, single episode, unspecified Condition: Good Instructions: ED Depression Follow-Up: Morena Doran DO [Primary Care Provider] - Comments: Follow up as directed by the social science analyst Discharge Date/Time: 04/09/21 11:06
[2021-04-09 05:54] LABS: B. PARAPERTUSSIS- RESP PCR PAN NOT DETECTED; B. PERTUSSIS- RESP PCR PANEL NOT DETECTED; C. PNEUMONIAE- RESP PCR PANEL NOT DETECTED; CORONAVIRUS 229E-RESP PCR NOT DETECTED; CORONAVIRUS HKU1-RESP PCR NOT DETECTED; CORONAVIRUS NL63-RESP PCR NOT DETECTED; CORONAVIRUS OC43-RESP PCR NOT DETECTED; HUMAN METAPNEUMOVIRUS NOT DETECTED; INFLUENZA A- RESP PCR PANEL NOT DETECTED; INFLUENZA B - RESP PCR PANEL NOT DETECTED; M. PNEUMONIAE- RESP PCR PANEL NOT DETECTED; PARAINFLUENZA VIRUS 1 NOT DETECTED; PARAINFLUENZA VIRUS 2 NOT DETECTED; PARAINFLUENZA VIRUS 3 NOT DETECTED; PARAINFLUENZA VIRUS 4 NOT DETECTED; RHINOVIRUS/ENTEROVIRUS NOT DETECTED; RSV- RESP PCR PANEL NOT DETECTED; SARS-CoV-2 -RESP PCR PANEL NOT DETECTED
[2021-04-09] MEDS ORDERED: ACETAMINOPHEN 325 MG TABLET PO STA (07:25)
[2021-04-09] MEDS ORDERED: LORazepam 0.5 MG TABLET PO STA (07:38)
[2021-04-09] MEDS ORDERED: ONDANSETRON ODT 4 MG TABLET TL STA (07:38)
[2021-04-09 07:58] VITALS: BP 101/68
== END 2021-04-09 11:06 | disposition home or self-care (01) ==
LOC: EDUNIT# → SUPCPDRO 04:10 → ED 04:10
DX: F32.9 Major depressive disorder, single episode, unspecified (principal); F41.9 Anxiety disorder, unspecified; F17.200 Nicotine dependence, unspecified, uncomplicated
CPT/HCPCS: 0202U; 36415; 80053; 80306; 80307; 80320; 80329; 81001; 83690; 84443; 85025; 93005; 99283; 99284; A9270; Q0162; 81003; 87086

== ENCOUNTER 2021-05-01 10:58 | Outpatient (CLI) | payer MEDICAID ==
--- NOTE | 2021-05-01 16:53 | XRAY Report ---
PROCEDURE: Lumbar Spine 2 View INDICATIONS: CHRONIC LOW BACK PX TECHNIQUE: 3 views of the lumbar spine were acquired. COMPARISON: None. FINDINGS: Bones: 5 [id number] vertebrae are present. There are rudimentary ribs at the T12 level. There is a levoscoliosis of the thoracolumbar spine centered at L1-L2. Minimal retrolisthesis demonstrated at L1-L2, L2-L3, L3-L4, L4-L5. There is mild to moderate multilevel degenerative disc disease through out the lumbar spine most prominent along the right aspect of L2-L3. There is mild to moderate facet arthropathy in the lower lumbar spine. No vertebral body compression fractures. No suspicious bony l esions. Soft tissues: Overlying bowel gas pattern is normal. No suspicious soft tissue calcifications. IMPRESSION: 1. Levoscoliosis of the thoracolumbar spine centered at L1-L2. 2. Mild multilevel retrolisthesis in the upper lumbar spine. 3. Multilevel mild to moderate degenerative disc disease as well as mild to moderate facet arthropath y in the lower lumbar spine. Reviewed by: Nathan Robb MD on 05/01/2021 4:52 PM PDT Approved by: Nathan Robb MD on 05/01/2021 4:52 PM PDT Station ID: [id number]
== END 2021-05-01 10:59 | disposition home or self-care (01) ==
LOC: DI.N 10:58
PROVIDERS: ATTEND Family Medicine
DX: M47.816 Spondylosis without myelopathy or radiculopathy, lumbar region (principal); M51.36 Other intervertebral disc degeneration, lumbar region; M43.16 Spondylolisthesis, lumbar region; M41.9 Scoliosis, unspecified